=== PATIENT | female | born 1955 | race Caucasian/White ===

== ENCOUNTER 2021-04-28 14:59 | Emergency (ER) | payer MEDICARE, OTHER, SELFPAY ==
--- NOTE | 2021-04-28 | ECG_ITS ---
Test Reason : CHEST PAIN Blood Pressure : / mmHG Vent. Rate : 147 BPM Atrial Rate : 000 BPM P-R Int : 000 ms QRS Dur : 086 ms QT Int : 284 ms P-R-T Axes : 000 -42 073 degrees QTc Int : 444 ms Supraventricular tachycardia Left axis deviation Abnormal ECG When compared with ECG of 10-FEB-2019 17:57, Supraventricular tachycardia has replaced Normal sinus rhythm Referred By: Generic ED Physician Electronically Signed By:JESUS TURCIOS MD
[2021-04-28 15:05] VITALS: BMI 36.6
[2021-04-28 15:09] VITALS: BP 140/114; PULSE 146; RESP 20; TEMP 36.9; O2SAT 100
--- NOTE | 2021-04-28 15:35 | ED_ITS ---
HPI - Chest Pain General Chief Complaint: Chest Pain Stated Complaint: heart rate is high/ having trouble breathing Time Seen by Provider: 04/28/21 15:35 Source: patient Mode of arrival: ambulatory Limitations: no limitations History of Present Illness HPI narrative: Patient states after albuterol she developed palpitations and heart 180 according to her apical pulse. Patient has been stressed because her friend is likely to in the next 48 hours. Onset (ago): minute(s) Timing of current episode: constant Onset: during rest Pain location: other (palpitations and shortness of breath) Severity: severe Associated symptoms: dyspnea Related Data Previous Rx's Medication Instructions Recorded atenolol 25 mg tablet 25 mg PO DAILY #30 tab 04/28/21 Allergies Allergy/AdvReac Type Severity Reaction Status Date / Time ampicillin [AMPICILLIN] Allergy Intermediate HIVES Verified 04/28/21 15:05 codeine [CODEINE] Allergy Intermediate HIVES Verified 04/28/21 15:05 morphine [MORPHINE] Allergy Intermediate HIVES Verified 04/28/21 15:05 lisinopril [LISINOPRIL] Allergy Unknown COUGH Verified 04/28/21 15:05 Codeine Phosphate Allergy Unknown Itching Uncoded 04/28/21 15:05 From LOPRESSOR Allergy Unknown BRADYCARDIA Uncoded 04/28/21 15:05 Review of Systems Constitutional: Constitutional: Reports no additional constitutional complaints Eyes: Eyes: Reports no additional eye complaints ENT: Denies dizziness Cardiovascular: Cardiovascular: Reports no additional cardiovascular complaints Respiratory: Respiratory: Reports as per HPI Gastrointestinal: Gastrointestinal: Reports no additional gastrointestinal complaints Genitourinary: Genitourinary: Reports no additional female genitourinary complaints Musculoskeletal: Musculoskeletal: Reports no additional musculoskeletal complaints Integumentary/Breasts: Skin/Breast: Denies rash Neurologic: Reports system reviewed and no additional complaints, except as documented, Denies dizziness and Denies Sensory deficit (Neuro) Psychiatric: Psychiatric: Denies anxiety PMF Past Medical History Medical History Hypertension Social History Social History Alcohol intake: never Patient Tobacco Use Status: Former Tobacco user Use of substances other than those prescribed or required for medical reasons: No Advance Directives: No Advance Directives Information Provided: Yes Physical Exam Vital Signs: Vital Signs: Last Vital Signs Temp 98.5 F 04/28/21 16:00 Pulse 86 04/28/21 16:00 Resp 17 04/28/21 16:00 BP 162/112 H 04/28/21 16:00 Pulse Ox 98 04/28/21 16:00 BMI result Body Mass Index 36.6 Const: Other: anxious General: healthy appearing Nutritional Appearance: average body habitus Orientation/consciousness: oriented to person and patient oriented x3 Limitations: no limitations HENMT: Head: Yes normal to inspection Ears: external ears normal General nose exam: Normal external nose present Mouth: Normal oral and palatal mucosa present and oropharynx normal Throat: Yes posterior oropharynx normal Eyes: General: appearance normal, both eyes and all related structures Neck: Other: supple Neck: Yes normal visual inspection Chest: Chest palpation & inspection: normal inspection of the chest Resp: Auscultation: clear to auscultation bilaterally Cardio: Other: now in sinus rhythm Jugular venous distension: no JVD Rate: regular rate Rhythm: regular rhythm Heart sounds: S1 normal heart sound present and S2 normal heart sound present GI: Inspection: Yes normal to inspection Palpation (GI): Soft to palpation, nontender and No hepatosplenomegaly present Auscultation: normal bowel sounds : General: Yes no CVA tenderness Back/Spine/Pelvis: Back: no CVA tenderness Skin: General skin exam: no rashes or lesions noted Neuro: General: oriented to person and patient oriented x3 Cranial nerves: Yes CN's II-XII intact bilaterally Motor exam (neuro): 5/5 motor strength present throughout Sensory Exam: No Sensory deficit (Neuro) Extrem: General: Yes normal to inspection Psych: Appearance: grossly normal Course Reevaluation(s) Reevaluation #1: Placed patient on low dose betablocker for SVT, ddimer negative, troponin negative will dc home Time: 16:22 MDM - Chest Pain Lab Data Result diagrams: 04/28/21 15:45 04/28/21 15:45 Labs: Lab Results 04/28/21 04/28/21 04/28/21 Range/Units 15:45 15:45 15:45 WBC 7.1 (4.8-10.8) X10*3/uL RBC 4.95 (4.20-5.50) X10*6/uL Hgb 14.7 (12.0-16.0) g/dl Hct 43.4 (37.0-47.0) % MCV 87.7 (80.0-98.0) fL MCH 29.7 (27.0-33.0) pg MCHC 33.9 (31.0-35.0) g/dl RDW 12.1 (11.0-16.0) % Plt Count 199 (160-400) X10*3/uL MPV 9.6 (9.4-12.3) fL Immature Gran % (Auto) 0.3 (0.0-0.4) % Neut % (Auto) 60.4 (45-73) % Lymph % (Auto) 28.4 (20-40) % Bradley % (Auto) 5.9 (2-11) % Eos % (Auto) 3.9 (0-4) % Baso % (Auto) 1.1 (0-2) % Lymph # (Auto) 2.0 (1.2-4.9) X10*3/uL Bradley # (Auto) 0.4 (0.1-1.2) X10*3/uL Eos # (Auto) 0.3 (0.0-0.4) X10*3/uL Baso # (Auto) 0.1 (0.0-0.2) X10*3/uL Abs Immat Gran (auto) 0.02 (0.00-0.03) X10*3/uL Absolute Neuts (auto) 4.3 (2.0-8.3) x10*3/uL Absolute Nucleated RBC 0.000 (0.0-0.012) X10*3/uL Nucleated RBC % (auto) 0.0 (0.0-0.2) /100WBC D-Dimer High Sensitivty NG/ML Sodium 140 (135-145) mmol/L Potassium 4.1 (3.3-5.1) mmol/L Chloride 103 (96-108) mmol/L Carbon Dioxide 31 H (22-29) mmol/L Anion Gap 10 L (12-20) BUN 17 H (9-16) mg/dL Creatinine 0.82 (0.5-1.4) mg/dL Estim Creat Clear Calc 80.0 Estimated GFR > 60 Random Glucose 144 H (60-115) mg/dL Calcium 10.0 (8.4-10.2) mg/dL Troponin I High Sens < 3.5 (<3.5-17.0) ng/L 04/28/21 Range/Units 15:46 WBC (4.8-10.8) X10*3/uL RBC (4.20-5.50) X10*6/uL Hgb (12.0-16.0) g/dl Hct (37.0-47.0) % MCV (80.0-98.0) fL MCH (27.0-33.0) pg MCHC (31.0-35.0) g/dl RDW (11.0-16.0) % Plt Count (160-400) X10*3/uL MPV (9.4-12.3) fL Immature Gran % (Auto) (0.0-0.4) % Neut % (Auto) (45-73) % Lymph % (Auto) (20-40) % Bradley % (Auto) (2-11) % Eos % (Auto) (0-4) % Baso % (Auto) (0-2) % Lymph # (Auto) (1.2-4.9) X10*3/uL Bradley # (Auto) (0.1-1.2) X10*3/uL Eos # (Auto) (0.0-0.4) X10*3/uL Baso # (Auto) (0.0-0.2) X10*3/uL Abs Immat Gran (auto) (0.00-0.03) X10*3/uL Absolute Neuts (auto) (2.0-8.3) x10*3/uL Absolute Nucleated RBC (0.0-0.012) X10*3/uL Nucleated RBC % (auto) (0.0-0.2) /100WBC D-Dimer High Sensitivty 216 NG/ML Sodium (135-145) mmol/L Potassium (3.3-5.1) mmol/L Chloride (96-108) mmol/L Carbon Dioxide (22-29) mmol/L Anion Gap (12-20) BUN (9-16) mg/dL Creatinine (0.5-1.4) mg/dL Estim Creat Clear Calc Estimated GFR Random Glucose (60-115) mg/dL Calcium (8.4-10.2) mg/dL Troponin I High Sens (<3.5-17.0) ng/L ECG Data ECG #1: Attestation: I personally reviewed and interpreted this ECG as follows: Interpretation: SVT 145, no st or twave changes ECG #2: Interpretation: sinus rate 80, no st or twave changes Discharge Plan Discharge Clinical Impression: Paroxysmal supraventricular tachycardia Patient Disposition: Home, Self-Care Instructions: Supraventricular Tachycardia (ED) Prescriptions: New atenolol 25 mg tablet 25 mg PO DAILY Qty: 30 RF: 0 Referrals: Physician,Unknown J [Primary Care Provider] - 5 days
[2021-04-28 15:38] VITALS: BP 162/112; PULSE 93; RESP 17; TEMP 36.9; O2SAT 98
--- NOTE | 2021-04-28 15:40 | ECG_ITS ---
Test Reason : tachycardia Blood Pressure : / mmHG Vent. Rate : 079 BPM Atrial Rate : 079 BPM P-R Int : 160 ms QRS Dur : 092 ms QT Int : 358 ms P-R-T Axes : 026 -40 038 degrees QTc Int : 410 ms Normal sinus rhythm Left axis deviation Abnormal ECG When compared with ECG of 28-APR-2021 15:05, Normal sinus rhythm has replaced Supraventricular tachycardia Referred By: Juve Bender Electronically Signed By:JESUS TURCIOS MD
[2021-04-28 15:50] LABS: MANUAL DIFF FLAG NO
[2021-04-28 15:52] LABS: Basophils Absolute Auto 0.1 X10*3/uL (0.0-0.2); Basophils Percent Auto 1.1 % (0-2); Eosinophils Absolute Auto 0.3 X10*3/uL (0.0-0.4); Eosinophils Percent Auto 3.9 % (0-4); Hematocrit 43.4 % (37.0-47.0); Hemoglobin 14.7 g/dl (12.0-16.0); Imm Gran Abs Auto 0.02 X10*3/uL (0.00-0.03); Imm Gran Pct Auto 0.3 % (0.0-0.4); Lymphocytes Percent Auto 28.4 % (20-40); Mean Corpuscular HGB Conc 33.9 g/dl (31.0-35.0); Mean Corpuscular Hemoglobin 29.7 pg (27.0-33.0); Mean Corpuscular Volume 87.7 fL (80.0-98.0); Mean Platelet Volume 9.6 fL (9.4-12.3); Monocytes Absolute Auto 0.4 X10*3/uL (0.1-1.2); Monocytes Percent Auto 5.9 % (2-11); Neutrophils Absolute Auto 4.3 x10*3/uL (2.0-8.3); Neutrophils Percent Auto 60.4 % (45-73); Platelet Count 199 X10*3/uL (160-400); Red Blood Count 4.95 X10*6/uL (4.20-5.50); Red Cell Distribution Width 12.1 % (11.0-16.0); White Blood Count 7.1 X10*3/uL (4.8-10.8)
[2021-04-28 16:00] VITALS: BP 162/112; PULSE 86; RESP 17; TEMP 36.9; O2SAT 98
[2021-04-28 16:01] LABS: D Dimer High Sensitivity 216 NG/ML
[2021-04-28 16:06] LABS: Anion Gap 10 (12-20); Blood Urea Nitrogen 17 mg/dL (9-16); Carbon Dioxide 31 mmol/L (22-29); Chloride 103 mmol/L (96-108); Estimated Glomerular Filt Rate > 60; Glucose Random 144 mg/dL (60-115); Potassium 4.1 mmol/L (3.3-5.1); Sodium 140 mmol/L (135-145)
--- NOTE | 2021-04-28 16:08 | PC.NURSE ---
patient a&ox3, c/o mid back pain, telemetry monitor intact-nsr at this time, pt noted to be hypertensive, iv inserted, labs drawn, repeat ekg being performed, will continue to monitor
[2021-04-28 16:13] LABS: Troponin-I High Sensitivity < 3.5 ng/L (<3.5-17.0)
--- NOTE | 2021-04-28 16:24 | PC.NURSE ---
pt not wanting to take PO medication that is ordered, provider notified, provider to speak with patient
[2021-04-28] MEDS: atenoloL 25 MG TABLET PO (16:48)
[2021-04-28 19:51] LABS: TSH reflex Free T4 1.85 uIU/mL (0.32-4.0)
== END 2021-04-28 16:54 | disposition home or self-care (01) ==
LOC: HO.ED 16:24
PROVIDERS: Emergency Provider Emergency Medicine; PCP Internal Medicine
DX: I47.1 Supraventricular tachycardia (principal); R00.2 Palpitations; I10 Essential (primary) hypertension
CPT/HCPCS: 36415; 80048; 84443; 84484; 85025; 85379; 93005; 99283; 99285

== ENCOUNTER 2022-01-07 09:49 | Outpatient (REF) | payer MEDICARE, OTHER, SELFPAY ==
--- NOTE | ~2022-01-07 | US_ITS ---
EXAMINATION: US ABDOMEN COMPLETE CLINICAL INFORMATION: History of hepatitis C. COMPARISON: None TECHNIQUE: Real-time imaging of the abdominal viscera. Technically difficult study secondary to bowel gas. FINDINGS: PANCREAS: Normal. ABDOMINAL AORTA: Atherosclerotic plaque. Normal in caliber. INFERIOR VENA CAVA: Visualized portions are normal. LIVER: The liver is normal in size. The liver contour is normal. Liver echotexture may be increased. There is a 1.3 x 1 x 1.6 cm echogenic lesion high in the right lobe of the liver under the diaphragm. No other focal liver lesion. There is no intrahepatic biliary duct dilatation seen. GALLBLADDER: Normal. The gallbladder is physiologically distended without evidence of stones, sludge, polyps, wall thickening or pericholecystic fluid. COMMON BILE DUCT: Normal in caliber measuring 0.4 cm in diameter. RIGHT KIDNEY: Normal. No hydronephrosis. No renal calculi or focal parenchymal lesions. The kidney measures 10.4 cm in maximum dimension. LEFT KIDNEY: Normal. No hydronephrosis. No renal calculi or focal parenchymal lesions. The kidney measures 9.8 cm in maximum dimension. SPLEEN: Normal. The spleen measures 7.9 cm in maximum dimension. FREE FLUID: None. US/US abdomen complete IMPRESSION: 1.3 x 1 x 1.6 cm echogenic lesion high in the right lobe the liver under the diaphragm. Given history of hepatitis C, further characterization with liver MRI is recommended. No evidence of cirrhosis.
[2022-01-07 10:45] LABS: Prothrombin Time 11.7 SEC (10.0-13.1)
[2022-01-07 11:10] LABS: Alanine Aminotransferase 17 U/L (0-31); Albumin Level 4.6 g/dL (3.5-5.0); Alkaline Phosphatase 60 U/L (39-117); Aspartate Amino Transferase 26 U/L (5-31); Bilirubin Direct 0.2 mg/dL (0.0-0.5); Bilirubin Total 0.6 mg/dL (0.0-1.0); Total Protein 7.7 g/dL (6.5-8.0)
[2022-01-09 13:41] LABS: Alpha Fetoprotein 2.5 ng/mL
[2022-01-09 19:32] LABS: HCV Log PCR <1.18 NOT DETECTED Log IU/mL (NOT DETECTED); HepC Viral Load <15 NOT DETECTED IU/mL (NOT DETECTED)
[2022-01-14 01:22] LABS: FIB-ALT 21 U/L (6-29); FIB-Alpha-2-Macroglobulin 420 mg/dL (106-279); FIB-Apolipoprotein A1 154 mg/dL (101-198); FIB-GGT 11 U/L (3-65); FIB-Haptoglobin 98 mg/dL (43-212); FIB-Total Bilirubin 0.6 mg/dL (0.2-1.2); Liver Fibrosis Score 0.52; Liver Fibrosis Stage F2; Nec Inflam Act Grade A0; Nec Inflam Act Score 0.12
== END 2022-01-07 09:50 | disposition home or self-care (01) ==
LOC: HO.US 09:49
PROVIDERS: Absent Provider Internal Medicine; PCP Internal Medicine; Visit Provider Internal Medicine
DX: B19.20 Unspecified viral hepatitis C without hepatic coma (principal)
CPT/HCPCS: 36415; 76700; 80076; 81596; 82105; 85610; 87522

== ENCOUNTER 2022-01-27 12:46 | Outpatient (REF) | payer MEDICARE, OTHER, SELFPAY ==
--- NOTE | ~2022-01-27 | MR_ITS ---
EXAMINATION: MR ABDOMEN WITHOUT AND WITH CONTRAST CLINICAL INFORMATION: History of hepatitis C. Abnormal liver ultrasound. COMPARISON: Ultrasound 01/07/2022 TECHNIQUE: MR abdomen was performed without and with use of 10 mL intravenous Gadavist gadolinium contrast. Postcontrast images are performed in multiphase dynamic sequences. Imaging was performed in 3 planes. FINDINGS: LUNG BASES: The visualized lung bases are unremarkable. LIVER, GALLBLADDER, AND BILIARY TREE: Likely corresponding to the hyperechoic colonic lesions seen in the right lobe of liver subjacent to the dome, posteriorly in segment 7, subjacent the diaphragm there is a well-circumscribed 1.3 cm homogeneously hyperintense T2 lesion which is initially hypointense on T1-weighted images. On the second phase of contrast-enhancement there is a thin rim of enhancement. The subsequent later phase of contrast enhancement is degraded by motion artifact. There is a thin rim of peripheral enhancement in the lesion is barely discernible on the latest coronal postcontrast series 11 image 07/30. No arterially enhancing lesions are seen. There is dependent bile or sludge within the gallbladder. No gallbladder wall thickening or pericholecystic fluid. No biliary ductal dilatation.. PANCREAS: Unremarkable. SPLEEN: Normal. ADRENAL GLANDS: Normal. KIDNEYS AND URETERS: The kidneys are normal in size, shape, and enhance symmetrically. No hydronephrosis. No perinephric stranding. GASTROINTESTINAL TRACT: No bowel obstruction. No ascites or fluid collection. ABDOMINAL WALL: No significant hernia is appreciated. LYMPH NODES: No lymphadenopathy. VASCULAR: Unremarkable. OSSEOUS STRUCTURES: No acute or suspicious osseous abnormality MR/MR abdomen wo/w con IMPRESSION: 1.3 cm lesion seen posteriorly in the right lobe of the liver adjacent the dome likely corresponds to the finding on ultrasound. The lesion has an atypical appearance. The lesion has a nonaggressive appearance with homogeneous bright T2 signal that would be typical for a cyst or a hemangioma. The lesion has a thin peripheral rim of enhancement after contrast administration, which would be unusual for a simple cyst. Moreover, the echogenic appearance on the ultrasound is the opposite of what would be expected for a simple cyst. The lesion does not demonstrate the expected progressive internal enhancement of a hemangioma although the T2 signal and ultrasound appearance are most suggestive of a hemangioma. Recommend continued attention on follow-up to confirm stability particularly if the patient is at increased risk for hepatocellular carcinoma.
[2022-01-27 14:31] LABS: Blood Urea Nitrogen 16 mg/dL (9-16); Estimated Glomerular Filt Rate > 60
== END 2022-01-27 12:47 | disposition home or self-care (01) ==
LOC: HO.MRI 12:46
PROVIDERS: Visit Provider Internal Medicine
DX: Z01.812 Encounter for preprocedural laboratory examination (principal); R93.2 Abnormal findings on diagnostic imaging of liver and biliary tract; Z86.19 Personal history of other infectious and parasitic diseases
CPT/HCPCS: 36415; 74183; 82565; 84520; A9585

== ENCOUNTER 2022-04-14 08:40 | Emergency (ER) | payer MEDICARE, OTHER, SELFPAY ==
--- NOTE | ~2022-04-14 | XR_ITS ---
EXAMINATION: XR CHEST CLINICAL INFORMATION: Chest pain. COMPARISON: Most recent chest radiograph dated 11/19/2017. TECHNIQUE: Frontal view of the chest was obtained. FINDINGS: The lungs are clear. The cardiomediastinal silhouette is normal in size. There is no pleural effusion or pneumothorax. No acute osseous abnormality. XR/XR chest 1V IMPRESSION: No acute cardiopulmonary findings.
--- NOTE | 2022-04-14 08:43 | ECG_ITS ---
Test Reason : CP Blood Pressure : / mmHG Vent. Rate : 077 BPM Atrial Rate : 077 BPM P-R Int : 152 ms QRS Dur : 088 ms QT Int : 368 ms P-R-T Axes : 016 -39 032 degrees QTc Int : 416 ms Normal sinus rhythm Left axis deviation Abnormal ECG When compared with ECG of 28-APR-2021 16:07, No significant change was found Referred By: Generic ED Physician Electronically Signed By:Johnnie Mccloud
[2022-04-14 08:54] VITALS: BP 137/87; PULSE 79; RESP 19; TEMP 36.6; O2SAT 100; BMI 38.2
--- OUTSIDE RECORDS SUMMARY | 2022-04-14 09:08 | XMS_ITS | Continuity of Care Document ---
:1955 Author Organization [facility] Address [address] [place] [address]- Care Team Providers Name Role Phone Kartik Valdez MD Primary Care Physician Encounter [facility] [place]): 01/12/20 - 03/31/[address] [id number] Attending Physician: Machelle Bardales MD Admitting Physician: Machelle Bardales MD Referring Physician: Machelle Bardales MD Allergies, Adverse Reactions, Alerts Substance Reaction Severity Status ampicillin rash Active codeine itch Active erythromycin GI UPSET Active morphine hallucinations, has no effect on Persistent Jesusita re Active pain Lopressor HEART RATE DROPS TO 20 Active Other Environmental Allergy SEASONAL ALLERGY Act meng Medications albuterol 90 mcg/inh inhalation powder 2 puffs, Inhalation, Every 4 hours, PRN Wheezing/Shortness of Breath, 0 Refills, Maintenance, 09/24/15 9:46:36 Start Date: 09/24/15 Status: OrderedAmitiza 24 mcg oral capsule 1 capsule = 24 mcg, By Mouth, 2 times a day, # 60 capsule, 3 Refills, Maintenance, 11/03/19 13:59:00EDT, Capsule, [id number] Start Date: 11/03/19 Status: OrderedAtivan 0.5 mg oral tablet 1 tablet = 0.5 mg, By Mouth, 3 times a day, PRN as needed for anxiety, 0 Refills, Maintenance, 09/24/15 9:45:57 Start Date: 09/24/15 Status: OrderedCholecalciferol 400, International_Units, By Mouth, Daily, 30, 3, 3, 04/27/08 9:26:27, Print ANNA Number, ADS OPPTHS,[id number], Constant Indicator Start Date: 04/27/08 Status: OrderedColace Capsule 100, mg, By Mouth, 2 times a day, Scheduled / PRN, 60, capsule, 5, 5, 11/16/07 10:30:15, as needed for constipation, Print ANNA Number, ADS OPPTHS, [id number] Start Date: 11/16/07 Status: OrderedColace sodium 100 mg oral capsule 100 mg, 1, capsule, By Mouth, 2 times a day, # 60 capsule, Refills 0, Tot. Refills 0, Maintenance, 10/01/15 13:33:22, Print Requisition Start Date: 10/01/15 Status: OrderedLasix 40 mg oral tablet 40 mg, 1, tablet, By Mouth, Daily in AM, Refills 0, Maintenance, 09/24/15 9:44:58 Start Date: 09/24/15 Status: OrderedMilk of Magnesia Liquid 30 CC, By Mouth, Daily at bedtime, PRN as needed for constipation, 0 Refills, Maintenance, 09/24/15 9:49:58 Start Date: 09/24/15 Status: OrderedMultivitamin 1 TAB, By Mouth, Daily, 0 Refills, Maintenance, 09/24/15 9:48:05 Start Date: 09/24/15 Status: Orderedomeprazole 20 mg oral enteric coated tablet 20, mg, 1, tablet, By Mouth, Daily, 60 tablet, 5, 5, 11/16/07 10:30:15, Print ANNA Number, ADS OPPTHS, [id number], Constant Indicator Start Date: 11/16/07 Status: OrderedPatient's Own Meds BONINE CHEW 1 TAB, By Mouth, 2 times a day, PRN, Maintenance, 09/24/15 9:50:31 Start Date: 09/24/15 Status: OrderedSimethicone Liquid See Instructions, 30 mL, 0, 0, 11/16/07 10:30:27, 80 mg By Mouth TID prn gas pain, Print ANNA Number,ADS OPPTHS, Constant Indicator Start Date: 11/16/07 Status: OrderedSpiriva HandiHaler 18 mcg Inhalation Capsule 1 each = 18 mcg, Inhalation, Daily, 0 Refills, Maintenance, 09/24/15 9:49:19 Start Date: 09/24/15 Status: OrderedVitamin B Complex oral tablet, extended release 1 tablet, By Mouth, Daily, 0 Refills, Maintenance, 09/24/15 9:47:43 Start Date: 09/24/15 Status: OrderedVitamin C 500 mg oral tablet 1 tablet = 500 mg, By Mouth, 2 times a day, 0 Refills, Maintenance, 09/24/15 9:47:01 Start Date: 09/24/15 Status: OrderedZoloft 50 mg oral tablet 1 tablet = 50 mg, By Mouth, Daily in AM, 0 Refills, Maintenance, 09/24/15 9:45:28 Start Date: 09/24/15 Status: Ordered Problem List Condition Effective Dates Status Health Status Informant Anxiety(Confirmed) Active Hypercholesterolemia(Confirmed) Active Prediabetes(Confirmed) Active Obesity (BMI 30-39.9)(Confirmed) Active Hepatitis C(Confirmed) Active Social History Social History Type Response Smoking Status Former smoker; Other: quit 2 1yrs ago; entered on: 07/19/15 Sex
--- OUTSIDE RECORDS SUMMARY | 2022-04-14 09:08 | XMS_ITS | Continuity of Care Document ---
:1955 Author Organization [facility] Address [address] [place] [address] Drive [address] [place] [address]- Care Team Providers Name Role Phone Kartik Valdez MD Primary Care Physician Encounter [facility] [place] Date(s): 11/03/19 - 12/03/[address] [place] [address] [facility] Attending Physician: Admtr, Surinder Admitting Physician: Admtr, Ar8 Referring Physician: Admtr, Ar8 Allergies, Adverse Reactions, Alerts Substance Reaction Severity [...] 3, 04/27/08 9:26:27, Print ANNA Number, ADS OPPTHS,[id number], Constant Indicator Start Date: 04/27/08 Status: OrderedColace Capsule 100, mg, By Mouth, 2 times a day, Scheduled / PRN, 60, capsule, 5, 5, 11/16/07 10:30:15, as needed for constipation, Print ANNA Number, ADS OPPTHS, [id number] Start Date: 11/16/07 Status: OrderedColace sodium 100 [...] 11/16/07 10:30:15, Print ANNA Number, ADS OPPTHS, [id number], Constant Indicator Start Date: 11/16/07 Status: OrderedPatient's [...]
--- OUTSIDE RECORDS SUMMARY | 2022-04-14 09:08 | XMS_ITS | Continuity of Care Document ---
:1955 Author Organization [facility] Address Unavailable , Care Team Providers Name Role Phone Kartik Valdez MD Primary Care Physician [place] [facility] [place] 11[place]30/20 [facility] Allergies, Adverse Reactions, Alerts Substance Reaction Severity [...] 3, 04/27/08 9:26:27, Print ANNA Number, ADS OPPTHS,[id number], Constant Indicator Start Date: 04/27/08 Status: OrderedColace Capsule 100, mg, By Mouth, 2 times a day, Scheduled / PRN, 60, capsule, 5, 5, 11/16/07 10:30:15, as needed for constipation, Print ANNA Number, ADS OPPTHS, [id number] Start Date: 11/16/07 Status: OrderedColace sodium 100 [...] 11/16/07 10:30:15, Print ANNA Number, ADS OPPTHS, [id number], Constant Indicator Start Date: 11/16/07 Status: OrderedPatient's [...]
--- OUTSIDE RECORDS SUMMARY | 2022-04-14 09:08 | XMS_ITS ---
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, limited to breakdown skin Problem Neuropathy G62.9 Active [id number] Problem Hallux valgus M20.11 Active 249210 01 (acquired), right foot Problem Non-pressure L97.922 Active ulcer of left lower extremity with fat layer exposed ALLERGIES Substance Reaction Event Type Date Status Amoxicillin rash Drug Allergy Nov, Active Codeine itchy Drug Allergy Nov, Active Penicillin rash Drug Allergy Nov, Active Metoprolol Succinate Unknown Drug Allergy Nov, Active Morphine shortness of breath Drug Allergy Nov, Active Percocet Unknown Drug Allergy Nov, Active ENCOUNTERS Encounter Location Date Diagnosis [facility] [address] Nov, Non -pressure chronic [place] ulcer right low [place] leg, [address] limited to break down skin L97.911 [facility] [address] Oct, Ing rown nail L60.0 ; [place] Neuropathy G62. 9 ; [address] Disorder of the skin and subcutaneous tis vane, unspecified L98. 9 and Dystrophic nail L60.[address] [facility] August, [place] [address] [facility] [place], [place] [address] [place], [place] [address] August, Zayra ropathy G62.9 ; [place] Ingrown nail L6 0.0 ; [place] [address] in right toe(s) M79.674 ; Disorder of the skin and subcutaneous tis vane, unspecified L98. 9 and Dystrophic nail L60.[address] Jun, [place] [address] Jun, Ing rowing nail L60.0 ; [place] Tinea unguium B 35.1 ; [address] Pain in right to e(s) M79.674 and Pain in left toe(s) M79.[address] Jan, Non -pressure chronic [place] ulcer right low er leg, [address] limited to break down skin L97.911 and Non- pressure ulcer of left lo wer extremity with f at layer exposed L97.[address] Dec, Non -pressure chronic [place] ulcer of [place] [address] right foot with fat layer exposed L97.512 and Ingrowing nail L 60.[address] Dec, [place] [address] Dec, Ing rowing nail L60.0 ; [place] 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 and Localized swelli ng, mass and lump, lower limb, bilateral R22.[address] Mar, Con tusion of right great [place] [address] nail, initial en counter S90.111A ; Close d displaced fractu re of proximal phalanx of right great toe, initi al encounter S92.41 1A ; Hallux valgus (a cquired), right foot M20.1 1 and Pes planus of right foot M21.41 IMMUNIZATIONS No Known Immunizations SOCIAL HISTORY Qualifiers Date Former Smoker 1973 - 1991 REASON FOR REFERRAL FUNCTIONAL STATUS PLAN OF CARE Activity Details Follow Up prn Reason: VITAL SIGNS Height 5 ft 6 in in 2021-11-05 Weight 225 lbs 2021-11-05 BMI 36.31 kg/m2 2021-11-05 Blood pressure systolic 131 mm Hg 2019-06-23 Blood pressure diastolic 82 mm Hg 2019-06-23 MEDICATIONS Medication Instructions Dosage Frequency Start End Duration Statu s Date Date traZODone HCl Active Incruse Inhalation Once 1 puff 24h Active Ellipta 62.5 a day MCG/INH Lasix 40 MG Orally three 1 tablet Active times a week Cephalexin 500 Orally 2 1 capsule 29 August, 5 days Active MG tablets prior 2021 to procedure Clindamycin Orally 2 tables 1 capsule 29 August, 5 days Ac tive HCl 300 MG prior to 2021 procedure Meclizine HCl Orally Once a 1 tablet as 24h Active 25 MG day needed Mupirocin 2 % Externally 1 application 12h 29 August, 5 day(s) Active Twice a day 2021 Mupirocin 2 % Externally 1 application 24h 11 Sep, 14 days N ot-Taki Daily to affected 2018 ng area Ativan 0.5 MG Orally every 6 1 tablet as 6h Not-Taki hrs needed ng Clindamycin Orally every 6 1 capsule 6h 06 Sep, 7 days Not -Taki HCl 300 MG hrs 2019 ng Sertraline HCl Orally Once a 3 tablet 24h Ac tive 25 MG day Crestor 20 MG Orally Once a 24h Not- Taki day ng Spiriva Inhalation Once 1 capsule 24h Not-Ta ki HandiHaler 18 a day ng MCG Neurontin 300 Orally Once a 1 capsule 24h 29 August, 90 days Ac tive MG day 2021 PROCEDURES Procedure Date Ordered Result Body Site Avulsion Plate June 23, 2019 DEBRIDE SKIN/TISSUE Jan 04, 2019 STERILE TRAY Dec 09, 2018 ACTIVE WOUND CARE/20 CM OR < Jan 04, 2019 DEBRIDE SKIN/TISSUE Dec 23, 2018 REMOVAL OF NAIL BED October 22, 2021 X-RAY EXAM OF RIGHT FOOT 3V Mar 19, 2017 REMOVAL OF NAIL BED Dec 23, 2018 STERILE TRAY October 22, 2021 REMOVAL OF NAIL BED Dec 09, 2018 STERILE TRAY Sept 20, 2019 RESULTS Name Result Date Reference Range X ray : Foot, right 3V REASON FOR VISIT Insurance Providers [facility] Health Member Patient Patient Patient Patient Patient Subscriber Subscriber Subscriber Group Insurance Plan Plan Plan Plan ID Relationship Address Phone Name Date of ID Name Date of No Type Insurance Insurance Insurance Coverage to Subscriber Address Phone Name Dates Unicare [phone] Unicare self [employer] [id number] [facility] [place] [address] Medicare National [id number] Medicare self [employer] [id number] Govt S[address] [facility] [address] [place] [address] Unicare [phone] Unicare self [employer] [id number] [place] [address] MEDICAL (GENERAL) HISTORY Type Description Date Medical History Anxiety Medical History Arthritis Medical History asthma Medical History CAD (Cholesterol) Medical History Hepatitis C Medical History High blood pressure Medical History chronic sinusitis Medical History Measles Medical History Mumps Medical History Chicken pox Medical History Transfusions Medical History Degenerative joint disease Surgical History knee replacement - TAQUERIA 2009 Surgical History carpal tunnel both hands
--- OUTSIDE RECORDS SUMMARY | 2022-04-14 09:08 | XMS_ITS | Continuity of Care Document ---
:1955 Author Organization [facility] Address [address] [place] [address] [place] [address]- Care Team Providers Name Role Phone Kartik Valdez MD Primary Care Physician [place] [facility] [place] - 11/10/[address] [place] [address] Attending Physician: Rosita MANCERA, Jodi Munoz Referring Physician: Kartik Valdez MD Allergies, Adverse Reactions, Alerts Substance Reaction [...] 3, 04/27/08 9:26:27, Print ANNA Number, ADS OPPTHS,[id number], Constant Indicator Start Date: 1/23/09 Status: OrderedColace Capsule 100, mg, By Mouth, 2 times a day, Scheduled / PRN, 60, capsule, 5, 5, 11/16/07 10:30:15, as needed for constipation, Print ANNA Number, ADS OPPTHS, [id number] Start Date: 11/16/07 Status: OrderedColace sodium 100 [...] 11/16/07 10:30:15, Print ANNA Number, ADS OPPTHS, [id number], Constant Indicator Start Date: 11/16/07 Status: OrderedPatient's [...]
--- OUTSIDE RECORDS SUMMARY | 2022-04-14 09:08 | XMS_ITS | Continuity of Care Document ---
:1955 Author Organization [facility] Address Unavailable , Care Team Providers Name Role Phone Kartik Valdez MD Primary Care Physician Encounter [facility] [place] Date(s): 10/30/20 - 11/29/20 [facility] Allergies, Adverse Reactions, Alerts [...] 3, 04/27/08 9:26:27, Print ANNA Number, ADS OPPTHS,[id number], Constant Indicator Start Date: 04/27/08 Status: OrderedColace Capsule 100, mg, By Mouth, 2 times a day, Scheduled / PRN, 60, capsule, 5, 5, 11/16/07 10:30:15, as needed for constipation, Print ANNA Number, ADS OPPTHS, [id number] Start Date: 11/16/07 Status: OrderedColace sodium 100 [...] 11/16/07 10:30:15, Print ANNA Number, ADS OPPTHS, [id number], Constant Indicator Start Date: 11/16/07 Status: OrderedPatient's [...]
[2022-04-14 09:11] VITALS: BP 147/81; PULSE 77; RESP 23; O2SAT 100
[2022-04-14 09:57] LABS: MANUAL DIFF FLAG NO
[2022-04-14 09:58] LABS: Hemoglobin 14.3 g/dl (12.0-16.0); Imm Gran Abs Auto 0.01 X10*3/uL (0.00-0.03); Imm Gran Pct Auto 0.2 % (0.0-0.4); PLT CLUMP 1; SCAN SMEAR FLAG 1
--- NOTE | 2022-04-14 09:59 | ED_ITS ---
HPI - Chest Pain General Chief Complaint: Chest Pain Stated Complaint: Back pain/Chest pain Time Seen by Provider: 04/14/22 08:57 Source: patient Mode of arrival: ambulatory History of Present Illness HPI narrative: 66-year-old female with stage 2 liver disease secondary to hep C and diabetes who presents with mid back pain open quotes between the shoulder blades? that is been ongoing for 2-3 days which has now progressed to radiating into the substernal without associated fever, chills, shortness of breath or dizziness and patient denies any new cough or sore throat. Related Data Previous Rx's Medication Instructions Recorded atenolol 25 mg tablet 25 mg PO DAILY #30 tabs 04/28/21 cyclobenzaprine 5 mg tablet 5 mg PO BEDTIME PRN muscle spasm 04/14/22 #4 tabs ketorolac 10 mg tablet 10 mg PO Q6H PRN pain 5 days #20 04/14/22 tabs Allergies Allergy/AdvReac Type Severity Reaction Status Date / Time ampicillin [AMPICILLIN] Allergy Intermediate HIVES Verified 04/28/21 15:05 codeine [CODEINE] Allergy Intermediate HIVES Verified 04/28/21 15:05 morphine [MORPHINE] Allergy Intermediate HIVES Verified 04/28/21 15:05 lisinopril [LISINOPRIL] Allergy Unknown COUGH Verified 04/28/21 15:05 Codeine Phosphate Allergy Unknown Itching Uncoded 04/28/21 15:05 From LOPRESSOR Allergy Unknown BRADYCARDIA Uncoded 04/28/21 15:05 Review of Systems Review of Systems: Pertinent positives and negatives as stated in HPI. [facility] Past Medical History Source: nursing notes reviewed Medical History Hypertension Social History Social History Alcohol intake: never Patient Tobacco Use Status: Former Tobacco user Advance Directives: Yes Advance Directives Information Provided: No Advance Directives on File: No Physical Exam Vital Signs: Vital Signs: Last Vital Signs Temp 98 F 04/14/22 08:54 Pulse 59 04/14/22 11:52 Resp 12 04/14/22 11:52 BP 125/75 04/14/22 11:52 Pulse Ox 99 04/14/22 11:52 O2 Del Method 04/14/22 11:52 BMI result Body Mass Index 38.2 VITAL SIGNS: Reviewed. GENERAL: Well developed, well nourished, in no acute distress. HEAD: Normocephalic/atraumatic EYES: PERRLA, EOMI EARS: Ext canals without abnormality OROPHARYNX: no oral lesions noted, posterior pharynx clear LUNGS: Normal breath sounds. No adventitious sounds or accessory muscle use. SpO2<100> CARDIOVASCULAR: Regular rate and rhythm without noted murmurs, no JVD or lower extremity edema. ABDOMEN: Soft, non-tender, non-distended with bowel sounds. MUSCULOSKELETAL: No tenderness, deformities, or effusions noted on gross inspection. EXTREMITIES: No cyanosis, clubbing or edema. SKIN: Inspection of the skin reveals no rashes NEUROLOGIC: Alert and oriented x 4. Strength and sensation to light touch were grossly intact x 4. Medications Administered Discontinued Medications Generic Name Dose Route Start Last Admin Trade Name Freq PRN Reason Stop Dose Admin Acetaminophen 975 mg 04/14/22 11:05 04/14/22 11:21 Acetaminophen 325 Mg Tablet PO 04/14/22 11:06 Not Given ONCE ONE Ketorolac Tromethamine 15 mg 04/14/22 11:05 04/14/22 11:20 Ketorolac Tromethamine 15 Mg/Ml Vial IM 04/14/22 11:06 15 mg ONCE ONE Administration Lidocaine 1 patch 04/14/22 11:05 04/14/22 11:21 Lidocaine 4 % Patch Adh..Patch TRANSDERMA 04/14/22 11:06 1 patch ONCE ONE Administration Protocol Medical Decision Making Medical Decision Making [facility] Narrative: 66-year-old female with back pain and suspect that this is likely musculoskeletal in nature but will rule out cardiopulmonary etiology and lower clinical suspicion for compression fracture 1201: On my review and interpretation patient has musculoskeletal pains/muscle spasm of the mid back is there is no evidence of pneumonia, cardiac ischemia, PE, viral infection. Patient was given combination analgesics to include a lidocaine patch and on re-evaluation is feeling better. She is otherwise discharged home in stable condition. Differential Diagnosis Differential Diagnoses: The differential diagnosis associated with the presentation includes See the discussion above Lab Data [facility] Lab Attestation statement: I reviewed the patient's lab results. See discussion above 04/14/22 09:52 04/14/22 09:52 Labs: Lab Results 04/14/22 04/14/2223 Range/Units 09:52 09:52 09:52 WBC 5.5 (4.8-10.8) X10*3/uL RBC 4.94 (4.20-5.50) X10*6/uL Hgb 14.3 (12.0-16.0) g/dl Hct 42.3 (37.0-47.0) % MCV 85.6 (80.0-98.0) fL MCH 28.9 (27.0-33.0) pg MCHC 33.8 (31.0-35.0) g/dl RDW 12.3 (11.0-16.0) % Plt Count 181 (160-400) X10*3/uL MPV 10.3 (9.4-12.3) fL Immature Gran % (Auto) 0.2 (0.0-0.4) % Neut % (Auto) 51.4 (45-73) % Lymph % (Auto) 34.9 (20-40) % Cass % (Auto) 8.2 (2-11) % Eos % (Auto) 4.0 (0-4) % Baso % (Auto) 1.3 (0-2) % Lymph # (Auto) 1.9 (1.2-4.9) X10*3/uL Cass # (Auto) 0.5 (0.1-1.2) X10*3/uL Eos # (Auto) 0.2 (0.0-0.4) X10*3/uL Baso # (Auto) 0.1 (0.0-0.2) X10*3/uL Abs Immat Gran (auto) 0.01 (0.00-0.03) X10*3/uL Absolute Neuts (auto) 2.8 (2.0-8.3) x10*3/uL Absolute Nucleated RBC 0.000 (0.0-0.012) X10*3/uL Nucleated RBC % (auto) 0.0 (0.0-0.2) /100WBC D-Dimer High Sensitivty 192 NG/ML Sodium 139 (135-145) mmol/L Potassium 4.3 (3.3-5.1) mmol/L Chloride 104 (96-108) mmol/L Carbon Dioxide 25 (22-29) mmol/L Anion Gap 14 (12-20) BUN 19 H (9-16) mg/dL Creatinine 0.75 (0.5-1.4) mg/dL Estim Creat Clear Calc 86.4 Estimated GFR > 60 Random Glucose 141 H (60-115) mg/dL Calcium 9.4 (8.4-10.2) mg/dL Total Bilirubin 0.5 (0.0-1.0) mg/dL AST 24 (5-31) U/L ALT 23 (0-31) U/L Alkaline Phosphatase 62 (39-117) U/L Troponin I High Sens (<3.5-17.0) ng/L Total Protein 7.2 (6.5-8.0) g/dL Albumin 4.4 (3.5-5.0) g/dL Lipase 13 (8-78) U/L COVID-19 ([facility]) (Negative) COVID-19 Clin Com Influenza Type A ([facility]) (Negative) Influenza Type B (MIKE) (Negative) Influenza A & B Note 04/14/22 04/14/22 04/14/22 Range/Units 09:52 11:16 11:16 WBC (4.8-10.8) X10*3/uL RBC (4.20-5.50) X10*6/uL Hgb (12.0-16.0) g/dl Hct (37.0-47.0) % MCV (80.0-98.0) fL MCH (27.0-33.0) pg MCHC (31.0-35.0) g/dl RDW (11.0-16.0) % Plt Count (160-400) X10*3/uL MPV (9.4-12.3) fL Immature Gran % (Auto) (0.0-0.4) % Neut % (Auto) (45-73) % Lymph % (Auto) (20-40) % Cass % (Auto) (2-11) % Eos % (Auto) (0-4) % Baso % (Auto) (0-2) % Lymph # (Auto) (1.2-4.9) X10*3/uL Cass # (Auto) (0.1-1.2) X10*3/uL Eos # (Auto) (0.0-0.4) X10*3/uL Baso # (Auto) (0.0-0.2) X10*3/uL Abs Immat Gran (auto) (0.00-0.03) X10*3/uL Absolute Neuts (auto) (2.0-8.3) x10*3/uL Absolute Nucleated RBC (0.0-0.012) X10*3/uL Nucleated RBC % (auto) (0.0-0.2) /100WBC D-Dimer High Sensitivty NG/ML Sodium (135-145) mmol/L Potassium (3.3-5.1) mmol/L Chloride (96-108) mmol/L Carbon Dioxide (22-29) mmol/L Anion Gap (12-20) BUN (9-16) mg/dL Creatinine (0.5-1.4) mg/dL Estim Creat Clear Calc Estimated GFR Random Glucose (60-115) mg/dL Calcium (8.4-10.2) mg/dL Total Bilirubin (0.0-1.0) mg/dL AST (5-31) U/L ALT (0-31) U/L Alkaline Phosphatase (39-117) U/L Troponin I High Sens < 3.5 (<3.5-17.0) ng/L Total Protein (6.5-8.0) g/dL Albumin (3.5-5.0) g/dL Lipase (8-78) U/L COVID-19 ([facility]) Negative (Negative) COVID-19 Clin Com See Note Influenza Type A ([facility]KE) Negative (Negative) Influenza Type B ([facility]) Negative (Negative) Influenza A & B Note See Note Independent Interpretation I performed an independent interpretation of an: EKG Interpretation: Normal sinus rhythm, HR-77, no STEMI, LA/QRS/QTC is within normal limits. Radiology Impression Radiologist Impression: My interpretation is in agreement with radiology's impression of imaging study. External Record Review External record reviewed: Outpatient record and Prior outpatient labs Chronic Conditions Patient?s care impacted by: Other Liver disease Critical Care Time Critical Care Time Critical Care Time: Yes Total Critical Care Time: 30 Attestation: I personally attest to this time spent taking care of the patient. Discharge Plan Discharge Clinical Impression: Mid back pain, Muscle spasm Patient Disposition: Home, Self-Care Instructions: Muscle Spasm (ED), Back Pain (ED) Additional Instructions: 1. Resume all home medications as prescribed. 2. Tylenol 1000 mg, orally, every 6 hours as needed for pain control. Do not exceed 4000 mg within 24 hours. 3. Lidocaine patch, these are available [id number] and should be applied as directed on the outside packaging. 4. Please follow-up with your primary care provider for re-evaluation and further outpatient management. Return to the ER for worsening symptoms. Prescriptions: New ketorolac 10 mg tablet 10 mg PO Q6H PRN (Reason: pain) 5 Days Qty: 20 0RF cyclobenzaprine 5 mg tablet 5 mg PO BEDTIME PRN (Reason: muscle spasm) Qty: 4 0RF No Action atenolol 25 mg tablet 25 mg PO DAILY Qty: 30 0RF Referrals: Kartik Valdez MD [Primary Care Provider] - Stand Alone Forms: Work/School Release
[2022-04-14 10:00] LABS: Basophils Absolute Auto 0.1 X10*3/uL (0.0-0.2); Basophils Percent Auto 1.3 % (0-2); Eosinophils Absolute Auto 0.2 X10*3/uL (0.0-0.4); Hematocrit 42.3 % (37.0-47.0); Lymphocytes Absolute Auto 1.9 X10*3/uL (1.2-4.9); Lymphocytes Percent Auto 34.9 % (20-40); Mean Corpuscular HGB Conc 33.8 g/dl (31.0-35.0); Mean Corpuscular Hemoglobin 28.9 pg (27.0-33.0); Mean Corpuscular Volume 85.6 fL (80.0-98.0); Mean Platelet Volume 10.3 fL (9.4-12.3); Monocytes Absolute Auto 0.5 X10*3/uL (0.1-1.2); Monocytes Percent Auto 8.2 % (2-11); Neutrophils Absolute Auto 2.8 x10*3/uL (2.0-8.3); Neutrophils Percent Auto 51.4 % (45-73); Red Blood Count 4.94 X10*6/uL (4.20-5.50); Red Cell Distribution Width 12.3 % (11.0-16.0)
[2022-04-14 10:02] LABS: White Blood Count 5.5 X10*3/uL (4.8-10.8)
[2022-04-14 10:06] LABS: D Dimer High Sensitivity 192 NG/ML
[2022-04-14 10:26] LABS: Alanine Aminotransferase 23 U/L (0-31); Albumin Level 4.4 g/dL (3.5-5.0); Alkaline Phosphatase 62 U/L (39-117); Anion Gap 14 (12-20); Aspartate Amino Transferase 24 U/L (5-31); Bilirubin Total 0.5 mg/dL (0.0-1.0); Blood Urea Nitrogen 19 mg/dL (9-16); Calcium 9.4 mg/dL (8.4-10.2); Carbon Dioxide 25 mmol/L (22-29); Chloride 104 mmol/L (96-108); Creatinine Clr Calc Pharmacy 86.4; Estimated Glomerular Filt Rate > 60; Glucose Random 141 mg/dL (60-115); Lipase 13 U/L (8-78); Potassium 4.3 mmol/L (3.3-5.1); Sodium 139 mmol/L (135-145); Total Protein 7.2 g/dL (6.5-8.0)
[2022-04-14 10:28] LABS: Troponin-I High Sensitivity < 3.5 ng/L (<3.5-17.0)
[2022-04-14 10:30] LABS: Platelet Count 181 X10*3/uL (160-400)
--- NOTE | 2022-04-14 10:45 | PC.NURSE ---
PT C/O MID BACK PAIN X3-4 DAYS GETTING PROGRESSIVELY WORSE. SHE HAS HX OF HEP C. SHE DENIES N/V/FEVER/CHILLS. NO SOB/ASCENCIO/DIZZINESS.
[2022-04-14] MEDS: Ketorolac Tromethamine 15 MG/ML VIAL IM (11:20)
[2022-04-14] MEDS: Lidocaine 4 % Patch ADH..PATCH 1 PATCH TRANSDERMA (11:21)
[2022-04-14 11:44] LABS: COVID-19 Test Negative (Negative); IDNOW Serial# 9DB6401D
[2022-04-14 11:49] LABS: IDNOW Serial# 6674DD1D; Influenza A Negative (Negative); Influenza B2 Negative (Negative)
[2022-04-14 11:52] VITALS: BP 125/75; PULSE 59; RESP 12; O2SAT 99
== END 2022-04-14 12:47 | disposition home or self-care (01) ==
PROVIDERS: Emergency Provider Student in an Organized Health Care Education/Training Program; PCP Internal Medicine
DX: M54.6 Pain in thoracic spine (principal); M62.830 Muscle spasm of back; Z20.822 Contact with and (suspected) exposure to COVID-19; I10 Essential (primary) hypertension; B19.20 Unspecified viral hepatitis C without hepatic coma; Z87.891 Personal history of nicotine dependence; Z79.899 Other long term (current) drug therapy
CPT/HCPCS: 36415; 71045; 80053; 83690; 84484; 85025; 85379; 87502; 87635; 93005; 96372; 99284; 99285; J1885

== ENCOUNTER 2022-06-19 13:13 | Outpatient (REF) | payer MEDICARE, OTHER, SELFPAY ==
[2022-06-22 18:59] LABS: Immunoglobulin A 109 mg/dL (70-320)
[2022-06-23 12:44] LABS: Gliadin Deamidated IgA Ab <1.0 U/mL; Gliadin Deamidated IgG Ab <1.0 U/mL; Transglutaminase Ab IgG <1.0 U/mL; Transglutaminase IgA <1.0 U/mL
[2022-06-25 15:53] LABS: Endomysial IgA Antibody Negative (Negative)
== END 2022-06-19 13:14 | disposition home or self-care (01) ==
LOC: HO.LAB 13:13
PROVIDERS: PCP Internal Medicine; Visit Provider Internal Medicine
DX: K59.00 Constipation, unspecified (principal); R14.0 Abdominal distension (gaseous)
CPT/HCPCS: 36415; 82784; 86231; 86258; 86364

== ENCOUNTER 2023-02-12 09:43 | Outpatient (REF) | payer MEDICARE, OTHER, SELFPAY ==
--- NOTE | ~2023-02-12 | US_ITS ---
EXAMINATION: US COMPLETE ABDOMEN WITH LIVER ELASTOGRAPHY CLINICAL INFORMATION: Hepatitis C. COMPARISON: Abdominal ultrasound dated 01/08/2022; MRI abdomen dated 01/27/2022. TECHNIQUE: Real-time imaging of the abdominal viscera. Noninvasive ultrasound liver fibrosis assessment is performed using Harjinder ElastPQ point quantification shear wave elastography (2D-SWE) with a C5-2 MHz transducer. Multiple elastography samples are obtained. FINDINGS: PANCREAS: Normal. The visualized pancreatic head and body are normal in appearance. The remainder of the pancreas is obscured from visualization by the overlying bowel gas. ABDOMINAL AORTA: The proximal, middle, and distal aortic segments are normal in caliber. The distal segment shows atherosclerotic plaque. INFERIOR VENA CAVA: Visualized portions are normal. LIVER: The liver demonstrates normal size, contour and echogenicity. Within the right hepatic lobe, a 1.0 x 1.1 x 1.7 cm hyperechoic circumscribed mass redemonstrated. On the prior ultrasound examinations dated 01/07/2022, this measured 1.3 x 1.0 x 1.6 cm. No focal lesion or intrahepatic biliary duct dilatation. The right lobe measures 1.72 cm in length. The left lobe measures 0.09 cm in length. Portal flow is towards the liver (hepatopetal). Shear wave liver elastography median stiffness is 1.72 m/s (reference: normal median stiffness is 1.3 m/s or less). IQR/median stiffness to assess sampling precision is 0.09 (reference: good quality data set is IQR/median stiffness of 0.15 or less). GALLBLADDER: Normal. The gallbladder is physiologically distended without evidence of stones, sludge, polyps, wall thickening or pericholecystic fluid. COMMON BILE DUCT: Normal in caliber measuring 0.3 cm in diameter. RIGHT KIDNEY: Normal. No hydronephrosis. No renal calculi or focal parenchymal lesions. The kidney measures 10.3 cm in maximum dimension. LEFT KIDNEY: Normal. No hydronephrosis. No renal calculi or focal parenchymal lesions. The kidney measures 9.0 cm in maximum dimension. SPLEEN: Normal. The spleen measures 8.9 cm in maximum dimension. FREE FLUID: None. US/US abdomen comp w elastography IMPRESSION: 1. There is generalized increase in hepatic echotexture, consistent with fatty infiltration or hepatocellular disease. Please correlate clinically. Provided history of hepatitis C noted. No biliary ductal dilatation is seen. 2. A stable 1.7 cm right hepatic lobe possible benign hemangioma is redemonstrated, consistent with prior ultrasound and MRI findings. The interim continued stability is reassuring. 3. Liver elastography: Measurements are suggestive of compensated advanced chronic liver disease but need further test for confirmation. REFERENCE: Society of Radiologists in Ultrasound Liver Stiffness Thresholds (2020): LIVER STIFFNESS THRESHOLDS: *Liver Stiffness equal or less than 1.3 m/s: High probability of being normal. *Liver Stiffness less than 1.7 m/s: In the absence of other known clinical signs, rules out compensated advanced chronic liver disease. *Liver Stiffness 1.7-2.1 m/s: Suggestive of compensated advanced chronic liver disease but need further test for confirmation. *Liver Stiffness over 2.1 m/s: Rules in compensated advanced chronic liver disease. *Liver Stiffness over 2.4 m/s: Suggestive of clinically significant portal hypertension. QUALITY OF DATA SET: *IQR/Median value equal or less than 0.15 implies a quality data set. *IQR/Median value over 0.15 implies a poor quality data set. SIGNIFICANT CHANGE FROM PRIOR EXAM: Significant change if liver stiffness measurement is 10% or greater from prior exam. OTHER CONSIDERATIONS: The stage of liver fibrosis may be overestimated in the setting of acute hepatitis, liver inflammation, elevated liver function tests, hepatic vascular congestion, obstructive cholestasis, non-fasting state, and infiltrative diseases such as amyloidosis and lymphoma. In some patients with NAFLD, the liver stiffness thresholds for compensated advanced chronic liver disease may be lower. In causes other than viral hepatitis and NAFLD, liver stiffness thresholds are not well established.
[2023-02-16 12:48] LABS: Alpha Fetoprotein 2.4 ng/mL
[2023-02-18 16:39] LABS: FIB-ALT 28 U/L (6-29); FIB-Alpha-2-Macroglobulin 356 mg/dL (106-279); FIB-Apolipoprotein A1 171 mg/dL (101-198); FIB-GGT 14 U/L (3-65); FIB-Haptoglobin 94 mg/dL (43-212); FIB-Total Bilirubin 0.5 mg/dL (0.2-1.2); Liver Fibrosis Stage F1-F2; Nec Inflam Act Grade A0; Nec Inflam Act Score 0.15
== END 2023-02-12 09:44 | disposition home or self-care (01) ==
LOC: HO.US 09:43
PROVIDERS: PCP Internal Medicine; Visit Provider Internal Medicine
DX: Z86.19 Personal history of other infectious and parasitic diseases (principal)
CPT/HCPCS: 36415; 76705; 76981; 81596; 82105

== ENCOUNTER 2024-02-09 08:58 | Outpatient (REF) | payer MEDICARE, OTHER, SELFPAY ==
--- NOTE | ~2024-02-09 | US_ITS ---
EXAMINATION: US COMPLETE ABDOMEN WITH LIVER ELASTOGRAPHY CLINICAL INFORMATION: Hepatitis C, liver fibrosis. COMPARISON: 02/12/2023. 01/27/2022. TECHNIQUE: Real-time imaging of the abdominal viscera. Noninvasive ultrasound liver fibrosis assessment is performed using Harjinder ElastPQ point quantification shear wave elastography (pSWE) with a C5-2 MHz transducer. Multiple elastography samples are obtained. FINDINGS: PANCREAS: The visualized pancreatic head and body are normal in appearance. The remainder of the pancreas is obscured from visualization by the overlying bowel gas. ABDOMINAL AORTA: The proximal, middle, and distal aortic segments are normal in caliber. INFERIOR VENA CAVA: Visualized portions are normal. LIVER: The liver demonstrates normal size and contour. There is mildly diffusely increased echogenicity. Redemonstration of a 1.2 x 1.0 x 1.2 cm oval hyperechoic oval mass in the dome of the right hepatic lobe, unchanged from 2021 and statistically most likely a benign hemangioma. No intra or extra-axial hepatic biliary ductal dilatation present. The right lobe measures 1.4 cm in length. The left lobe measures 5.1 cm in length. Portal flow is hepatopedal. Shear wave liver elastography median stiffness is 1.5 m/s (reference: normal median stiffness is 1.3 m/s or less). IQR/median stiffness to assess sampling precision is 0.14 (reference: good quality data set is IQR/median stiffness of 0.15 or less). This suggests a good quality data set. GALLBLADDER: The gallbladder is physiologically distended without evidence of stones, sludge, polyps, wall thickening or pericholecystic fluid. COMMON BILE DUCT: Normal in caliber measuring 0.3 cm in diameter. RIGHT KIDNEY: No hydronephrosis. No renal calculi or focal parenchymal lesions. The kidney measures 11.1 cm in maximum dimension. LEFT KIDNEY: No hydronephrosis. No renal calculi or focal parenchymal lesions. The kidney measures 10.0 cm in maximum dimension. SPLEEN: Unremarkable. The spleen measures 9.3 cm in maximum dimension. FREE FLUID: None. US/US abdomen comp w elastography IMPRESSION: 1. Mild generalized increase in hepatic echogenicity, nonspecific but most likely representing diffuse fatty infiltration and/or hepatocellular disease. 2. A stable 1.2 cm echogenic oval mass subdiaphragmatic right hepatic lobe, given stability from 2021 is statistically benign and most likely a benign hemangioma. No additional focal hepatic lesion. 3. Normal gallbladder and biliary system. 2. Liver elastography: 1.5 m/s. In the absence of other known clinical signs, measurements rule out compensated advanced chronic liver disease. If there are known clinical signs, further testing may be needed for confirmation. Liver stiffness measurement is without significant change from prior exam (change under 10%). REFERENCE: Society of Radiologists in Ultrasound Liver Stiffness Thresholds (2020): LIVER STIFFNESS THRESHOLDS: *Liver Stiffness equal or less than 1.3 m/s: High probability of being normal. *Liver Stiffness less than 1.7 m/s: In the absence of other known clinical signs, rules out compensated advanced chronic liver disease. *Liver Stiffness 1.7-2.1 m/s: Suggestive of compensated advanced chronic liver disease but need further test for confirmation. *Liver Stiffness over 2.1 m/s: Rules in compensated advanced chronic liver disease. *Liver Stiffness over 2.4 m/s: Suggestive of clinically significant portal hypertension. QUALITY OF DATA SET: *IQR/Median value equal or less than 0.15 implies a quality data set. *IQR/Median value over 0.15 implies a poor quality data set. SIGNIFICANT CHANGE FROM PRIOR EXAM: Significant change if liver stiffness measurement is 10% or greater from prior exam. OTHER CONSIDERATIONS: The stage of liver fibrosis may be overestimated in the setting of acute hepatitis, liver inflammation, elevated liver function tests, hepatic vascular congestion, obstructive cholestasis, non-fasting state, and infiltrative diseases such as amyloidosis and lymphoma. In some patients with NAFLD, the liver stiffness thresholds for compensated advanced chronic liver disease may be lower. In causes other than viral hepatitis and NAFLD, liver stiffness thresholds are not well established. Electronically signed by: Clovis Vanegas MD 03/21/2024 09:50 AM [facility]
[2024-02-09 09:36] LABS: MANUAL DIFF FLAG NO
[2024-02-09 11:04] LABS: Basophils Absolute Auto 0.1 X10*3/uL (0.0-0.2); Basophils Percent Auto 1.1 % (0-2); Eosinophils Absolute Auto 0.2 X10*3/uL (0.0-0.4); Eosinophils Percent Auto 4.3 % (0-4); Hematocrit 42.1 % (37.0-47.0); Hemoglobin 14.3 g/dl (12.0-16.0); Imm Gran Abs Auto 0.02 X10*3/uL (0.00-0.03); Imm Gran Pct Auto 0.4 % (0.0-0.4); Lymphocytes Absolute Auto 2.3 X10*3/uL (1.2-4.9); Lymphocytes Percent Auto 40.6 % (20-40); Mean Corpuscular Hemoglobin 29.7 pg (27.0-33.0); Mean Corpuscular Volume 87.5 fL (80.0-98.0); Mean Platelet Volume 9.9 fL (9.4-12.3); Monocytes Absolute Auto 0.5 X10*3/uL (0.1-1.2); Monocytes Percent Auto 8.3 % (2-11); Neutrophils Absolute Auto 2.6 x10*3/uL (2.0-8.3); Neutrophils Percent Auto 45.3 % (45-73); Platelet Count 203 X10*3/uL (160-400); Red Blood Count 4.81 X10*6/uL (4.20-5.50); Red Cell Distribution Width 12.2 % (11.0-16.0); White Blood Count 5.6 X10*3/uL (4.8-10.8)
[2024-02-09 11:07] LABS: Prothrombin Time 11.9 SEC (10.9-12.4)
[2024-02-09 11:36] LABS: Alanine Aminotransferase 30 U/L (0-31); Albumin Level 4.3 g/dL (3.5-5.0); Alkaline Phosphatase 64 U/L (39-117); Aspartate Amino Transferase 31 U/L (5-31); Bilirubin Direct 0.2 mg/dL (0.0-0.5); Bilirubin Total 0.6 mg/dL (0.0-1.0); Total Protein 7.4 g/dL (6.5-8.0)
[2024-02-10 12:44] LABS: Alpha Fetoprotein 1.9 ng/mL
[2024-02-11 15:38] LABS: HCV Log PCR <1.18 NOT DETECTED Log IU/mL (NOT DETECTED); HepC Viral Load <15 NOT DETECTED IU/mL (NOT DETECTED)
[2024-02-16 14:59] LABS: FIB-ALT 18 U/L (6-29); FIB-Alpha-2-Macroglobulin 382 mg/dL (106-279); FIB-Apolipoprotein A1 146 mg/dL (101-198); FIB-GGT 10 U/L (3-65); FIB-Haptoglobin 94 mg/dL (43-212); FIB-Total Bilirubin 0.4 mg/dL (0.2-1.2); Liver Fibrosis Score 0.44; Liver Fibrosis Stage F1-F2; Nec Inflam Act Grade A0; Nec Inflam Act Score 0.08; Reference ID 5199211
== END 2024-02-09 08:59 | disposition home or self-care (01) ==
LOC: HO.US 08:58
PROVIDERS: PCP Internal Medicine; Visit Provider Internal Medicine
DX: K74.00 Hepatic fibrosis, unspecified (principal); Z86.19 Personal history of other infectious and parasitic diseases; R93.2 Abnormal findings on diagnostic imaging of liver and biliary tract
CPT/HCPCS: 36415; 76700; 76981; 80076; 81596; 82105; 85025; 85610; 87522

== ENCOUNTER → 2024-02-09 09:35 | Outpatient (BNV) | payer MEDICARE, OTHER, SELFPAY | PROVIDERS: PCP Internal Medicine; Visit Provider Radiology Diagnostic Radiology | DX: K74.00 Hepatic fibrosis, unspecified (principal) | CPT/HCPCS: 76981 ==

== ENCOUNTER 2025-01-18 10:50 | Outpatient (REF) | payer MEDICARE, OTHER, SELFPAY ==
--- OUTSIDE RECORDS SUMMARY | 2024-01-25 06:30 | XMS_ITS ---
Author Organization [facility] Address [address] [place] [address] Care Team Providers Care Graduate Assistant Athletic Trainer Name Role Phone Kartik Valdez Primary Care Provider Jasmina Jeffrey Unavailable [phone] Allergies Allergen (clinical drug ingredient) Drug/Non Drug [...] 08/29/2021 Active Mupirocin 2 % 1 application Injury/Safety Hazard Assessment ally Twice a day; Duration: 5 day(s) 08/29/2021 Active traZODone HCl Active Cephalexin 500 MG 1 capsule Orally 2 tablets prior to procedure; Duration: 5 days 08/29/2021 Active Gabapentin 300 MG TAKE 1 CAPSULE BY [facility] EVERY DAY FOR 90 DAYS; Duration: 90 Active Meclizine HCl 25 MG 1 tablet as needed Orally Once a day PRN Active Sertraline HCl 25 MG 3 tablet Orally Onc e a day Active Incruse Ellipta 62.5 MCG/INH 1 puff Inhalation Once a day Active Lasix 40 MG 1 tablet Orally thre e times a week Active Encounters Encounter Location Date Provider Diagnosis [facility] [place] [address] [place] [address] 01/25/2024 Jasmina Santana Plan Of Treatment No Information Progress Notes * Ivy HAbryceDOB: 7 (69 yo F)Acc No.[id number]:01/25/2024 Progress Note Patient: Humera RAO Provider: Alberto Santana DPM :1955 A ge:68 Y S ex:Female Date:01/25/2024 Address:[address] [place], [place] [id number] Pcp:Kartik Valdez Subjective: * Chief Complaints: * [...] DPM Date: Generated for Eulalia espino/Tunde/Markel on: 01:41 PM EDT
--- OUTSIDE RECORDS SUMMARY | 2024-09-25 12:50 | XMS_ITS | Continuity of Care Document ---
Author Organization [facility] Address [address] [place] [phone] Phone Care Team Providers Care Cow Tester Name Role Phone Delon Ortiz APRN Unavailable Unavailable Allergies, Adverse Reactions, Alerts Substance Reaction Status Criticality PENICILLIN Active No Information Medications Medication Instructions Dosage Effective Dates (start - stop) Status Comments oxybutynin chloride ER 5 mg tablet,extended release 24 hr TAKE ONE TABLET BY MOUTH DAILY - Active levothyroxine 137 mcg capsule take 1 capsule by oral route every day 137 MCG - Active cefdinir 300 mg capsule take 1 capsule by oral route every 12 hours 300 MG - Active prednisone 10 mg tablet take 1 tablet by oral route every day 10 MG - Active citalopram 40 mg tablet take 1 tablet by oral route every day 40 MG - Active fluticasone propionate 50 mcg/actuation nasal spray,suspension inhale 1 spray by intranasal route every day in each nostril 50 MCG - Active Breo Ellipta 100 mcg-25 mcg/dose powder for inhalation inhale 1 puff by inhalation route every day at the same time each day 1.00 puff - Active Incruse Ellipta 62.5 mcg/actuation powder for inhalation inhale 1 puff by inhalation route every day at the same time each day 62.5 MCG - Active meloxicam 7.5 mg tablet take 1 tablet by oral route every day 7.5 MG - Active montelukast 10 mg tablet take 1 tablet by oral route every day in the evening 10 MG - Active alprazolam 0.25 mg tablet take 1 tablet by oral route 3 times every day 0.25 MG - Active albuterol sulfate HFA 90 mcg/actuation aerosol inhaler inhale 2 puff by inhalation route every 4 - 6 hours as needed 180 MCG - Active albuterol sulfate 2.5 mg/3 mL (0.083 %) solution for nebulization inhale 3 milliliter by nebulization route 3 times every day 2.5 MG - Active Advance Directives Directive Yes / No Effective Date File Name No Information Encounters Encounter Description Practice Location Reason(s) For Visit Diagnoses Date Provider [facility], [address] [place] [address], [id number], tel:[phone] [facility] No Information 2024 Angel Jernigan. [address] [place] [address], [id number]. tel:[phone] [facility], [address] [place] [address], [id number], tel:[phone] [facility] No Information 2024 Sandy Hammer. [address] [place] [address], [id number], . tel:[phone] [facility], [address] [place] [address], [id number], tel:[phone] [facility] No Information 2023 Angel Jernigan. [address] [place] [address], [id number]. tel:[phone] [facility], [address] [place] [address], [id number], tel:[phone] [facility] No Information 2023 Angel Jernigan. [address] [place] [address], [id number]. tel:[phone] Family History Family Member Type Diagnosis Age At Onset No Information Payers Payer name Insurance type Covered alliance party ID Authoriza tion(s) No Information Social History Type Description Quantity Date Captured Comments Sex Female Smoking Status No Information Chief Complaint And Reason For Visit No Information History Of Present Illness Encounter Date Complaint History Of Prese nt Illness No Information Instructions Date Instruction Additional Infor mation No Information Assessments Type Assessment Date No Information
[2025-01-18 13:30] LABS: MANUAL DIFF FLAG NO
[2025-01-18 13:40] LABS: Hematocrit 43.2 % (37.0-47.0); Hemoglobin 14.3 g/dl (12.0-16.0); INTERNATIONAL NORM RATIO 1.0 (0.9-1.1); Imm Gran Abs Auto 0.02 X10*3/uL (0.00-0.03); Imm Gran Pct Auto 0.3 % (0.0-0.4); Lymphocytes Absolute Auto 2.1 X10*3/uL (1.2-4.9); Mean Corpuscular HGB Conc 33.1 g/dl (31.0-35.0); Mean Corpuscular Hemoglobin 29.2 pg (27.0-33.0); Mean Corpuscular Volume 88.3 fL (80.0-98.0); NRBC Abs Auto 0.000 X10*3/uL (0.0-0.012); NRBC Pct Auto 0.0 /100WBC (0.0-0.2); Platelet Count 203 X10*3/uL (160-400); Prothrombin Time 12.0 SEC (10.9-12.4); Red Blood Count 4.89 X10*6/uL (4.20-5.50); White Blood Count 6.0 X10*3/uL (4.8-10.8)
--- OUTSIDE RECORDS SUMMARY | 2025-01-18 13:41 | XMS_ITS | Patient Health Record ---
Author Organization [facility] Address [address] [facility] [place] [address] Care Team Providers Care Epic Specialist Name Role Phone Kartik Valdez Primary Care Provider Jasmina Jeffrey Unavailable [phone] Allergies Allergen (clinical drug ingredient) Drug/Non Drug Allergy documented on EMR Reaction Allergy Type Onset Date Status amoxicillin Amoxicillin rash Drug Allergy Act meng Metoprolol Succinate Unknown Drug Allergy Active acetaminophen / oxycodone Percocet Unknown Drug Allergy Active Penicillin rash Drug Allergy Active codeine Codeine itchy Drug Allergy Active morphine Morphine shortness of breath Drug Allergy Active Reason For Referral No Information Medications Medication SIG (Take, Route, Frequency, Duration) Notes Start Date End Date Status Sertraline HCl 25 MG 3 tablet Orally Onc e a day Active Ativan 0.5 MG 1 tablet as needed Orally every 6 hrs Not-Taking Incruse Ellipta 62.5 MCG/INH 1 puff Inhalation Once a day Active Clindamycin HCl 300 MG 1 capsule Orally every 6 hrs; Duration: 7 days 12/09/2018 Not-Taking Clindamycin HCl 300 MG 1 capsule Orally 2 tables prior to procedure; Duration: 5 days 08/29/2021 Active Mupirocin 2 % 1 application Software Programmer ally Twice a day; Duration: 5 day(s) 08/29/2021 Active traZODone HCl Active Cephalexin 500 MG 1 capsule Orally 2 tablets prior to procedure; Duration: 5 days 08/29/2021 Active Crestor 20 MG Orally Once a day Not-Taking Lasix 40 MG 1 tablet Orally thre e times a week Active Mupirocin 2 % 1 application to affected area Externally Daily; Duration: 14 days 12/14/2018 Not-Yao ing Gabapentin 300 MG TAKE 1 CAPSULE BY [facility] EVERY DAY FOR 90 DAYS; Duration: 90 Active Spiriva HandiHaler 18 MCG 1 capsule Inhalation Once a day Not-Taking Meclizine HCl 25 MG 1 tablet as needed Orally Once a day PRN Active Social History Tobacco Use: Social History Observation Description Date Details (start date - stop date) Former Smoker NA - NA Tobacco Use/Smoking Question Answer Notes Are you a: former smoker When did you start smoking? 1973 When did you stop smoking? 1991 Additional Findings: Tobacco User Modera te cigarette smoker (10-19 cigs/day) Additional Findings: Tobacco Non-User Current no n-smoker Alcohol Screen Question Answer Notes Did you have a drink containing alcohol in the p ast year? No Points 0 Interpretation Negative Tobacco use other than smoking: Question Answer Notes Are you an other tobacco user? 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) Active confirmed Problem Ulcer of left lower leg (disorder) (73550149160143 103) Non-pressure ulcer of left lower extremity with fat layer exposed (L97.922) Active confirmed Encounters Encounter Location Date Provider Diagnosis [facility] [place] [address] [place] [address] 01/24/2024 Jasmina Santana Plan Of Treatment No Information Insurance Providers Payer Name Payer Address Payer Phone Subscriber Number Group Number Insured Name Patient Relationship to Insured Coverage Start Date Coverage End Date Medicare National [facility] [address] [place] [address] [id number] Humera Ha Self - patient is the insured [facility] ([facility] [address] [place] [address] [phone] [id number] Humera Ha Self - patient is the insured Medical (General) History Medical History History ICD Code Anxiety Arthritis asthma CAD (Cholesterol) Hepatitis C High blood pressure chronic sinusitis Measles Mumps Chicken pox Transfusions Degenerative joint disease Surgical History Surgery Date(Month/Year) knee replacement - [place] 2008 carpal tunnel both hands
--- OUTSIDE RECORDS SUMMARY | 2025-01-18 13:41 | XMS_ITS | Patient Health Record ---
Author Organization [facility] Address [address] [place] [address] Care Team Providers Care Health Information Technician Name Role Phone Fatemeh Valdez MD Primary Care Provider Haris Shipley [phone] Allergies Allergen (clinical drug ingredient) Drug/Non Drug Allergy documented on EMR Reaction Allergy Type Onset Date Status Penicillin rash Drug Allergy Active morphine Morphine resp/hallucinat ions Drug Allergy Active metoprolol Metoprolol low heart rate Drug Allergy Active erythromycin Erythromycin severe GI symptoms Drug Allergy Active Results Component Value Reference Range Notes Complete Blood Count Auto Di ff Reviewed date:02/10/2024 01:40:42 PM Interpretation: Performing Lab:[facility], [address] [place] [phone] Notes/Report: White Blood Count 5.6 4.8-10.8 X10*3/uL Red Blood Count 4.81 4.20-5.50 X10*6/uL Hemoglobin 14.3 12.0-16.0 g/dl Hematocrit 42.1 37.0-47.0 % Mean Corpuscular Volume 87.5 80.0-98.0 fL Mean Corpuscular Hemoglobin 29.7 27.0-33.0 pg Mean Corpuscular HGB Conc 34.0 31.0-35.0 g/dl Red Cell Distribution Width 12.2 11.0-16.0 % Platelet Count 203 160-400 X10*3/uL Mean Platelet Volume 9.9 9.4-12.3 fL Neutrophils Percent Auto 45.3 45-73 % Imm Gran Pct Auto 0.4 0.0-0.4 % Lymphocytes Percent Auto 40.6 20-40 % Monocytes Percent Auto 8.3 2-11 % Eosinophils Percent Auto 4.3 0-4 % Basophils Percent Auto 1.1 0-2 % NRBC Pct Auto 0.0 0.0-0.2 /100WBC Neutrophils Absolute Auto 2.6 2.0-8.3 x10*3/u L Imm Gran Abs Auto 0.02 0.00-0.03 X10*3/uL Lymphocytes Absolute Auto 2.3 1.2-4.9 X10*3/u L Monocytes Absolute Auto 0.5 0.1-1.2 X10*3/uL Eosinophils Absolute Auto 0.2 0.0-0.4 X10*3/u L Basophils Absolute Auto 0.1 0.0-0.2 X10*3/uL NRBC Abs Auto 0.000 0.0-0.012 X10*3/uL Prothrombin Time INR Reviewed date:02/10/2024 01:40:49 PM Interpretation: Performing Lab:[address] [phone] Notes/Report: Prothrombin Time 11.9 10.9-12.4 SEC INTERNATIONAL NORM RATIO 1.0 0.9-1.1 INTERNATIONAL NORMALIZED RATIO (INR) REFERENCE RANGES Reference Range For patients not on anticoagulant therapy: 0.9 - 1.1 INR ranges for oral anticoagulant therapy: For prevention and treatment of venous thrombosis and pulmonary embolism: 2.0 - 3.0 For acute myocardial infarction with aspirin therapy: 2.0 - 3.0 For acute myocardial infarction without aspirin therapy: 3.0 - 4.0 For patients with mechanical prosthetic heart valves: 2.5 - 3.5 Liver Panel Reviewed date:02/10/2024 01:41:13 PM Interpretation: Performing Lab:[address] [phone] Notes/Report: Bilirubin Total 0.6 0.0-1.0 mg/dL Bilirubin Direct 0.2 0.0-0.5 mg/dL Aspartate Amino Transferase 31 5-31 U/L Alanine Aminotransferase 30 0-31 U/L Total Protein 7.4 6.5-8.0 g/dL Albumin Level 4.3 3.5-5.0 g/dL Alkaline Phosphatase 64 39-117 U/L Alpha Fetoprotein Reviewed date:02/17/2024 08:47:04 PM Interpretation: Performing Lab:[facility], [address] [place] [phone] Notes/Report: Alpha Fetoprotein 1.9 Reference Range: <6.1 The use of AFP as a tumor marker in females is not recommended. This test was performed using the [place] chemiluminescent method. Values obtained from different assay methods cannot be used interchangeably. AFP levels, regardless of value, should not be interpreted as absolute evidence of the presence or absence of disease. THIS TEST WAS PERFORMED AT: [facility] [address] [place] [phone] NELI MEYER MD Liver Fibrosis Pnl Reviewed date:03/21/2024 12:02:54 AM Interpretation: Performing Lab:[facility], [address] [place] [phone] Notes/Report: Liver Fibrosis Score 0.44 Liver Fibrosis Stage F1-F2 Liver Fibrosis Interpretation SEE NOTE minimal fibrosis Fibro Test Score (f) Metavir Score f>=0 and f<=0.21 : F0 (no fibrosis) f>0.21 and f<=0.27 : F0-F1 (no fibrosis) f>0.27 and f<=0.31 : F1 (minimal fibrosis) f>0.31 and f<=0.48 : F1-F2 (minimal fibrosis) f>0.48 and f<=0.58 : F2 (moderate fibrosis) f>0.58 and f<=0.72 : F3 (advanced fibrosis) f>0.72 and f<=0.74 : F3-F4 (advanced fibrosis) f>0.74 and f<=1.00 : F4 (severe fibrosis) Nec Inflam Act Score 0.08 Nec Inflam Act Grade A0 Nec Inflam Act Interpretation SEE NOTE no activity ActiTest Score (a) Metavir Score a>=0 and a<=0.17 : A0 (no activity) a>0.17 and a<=0.29 : A0-A1 (no activity) a>0.29 and a<=0.36 : A1 (minimal activity) a>0.36 and a<=0.52 : A1-A2 (minimal activity) a>0.52 and a<=0.60 : A2 (significant activity) a>0.60 and a<=0.62 : A2-A3 (significant activity) a>0.62 and a<=1.00 : A3 (severe activity) CCN-Etqyj-5-Macroglobulin 382 106-279 mg/dL FIB-Haptoglobin 94 43-212 mg/dL FIB-Apolipoprotein A1 146 101-198 mg/dL FIB-Total Bilirubin 0.4 0.2-1.2 mg/dL FIB-GGT 10 3-65 U/L FIB-ALT 18 6-29 U/L Reference ID [id number] Footnote SEE NOTE The reliability of results is dependent on compliance with the preanalytical and analytical conditions recommended by [employer]. The tests have to be deferred for: acute hemolysis, acute hepatitis, acute inflammation, extra hepatic cholestasis. The advice of a specialist should be sought for interpretation in chronic hemolysis and Gilbert's syndrome. The test interpretation is not validated in liver transplant patients. Isolated extreme values of one of the components should lead to caution in interpreting the results. In case of discordance between a biopsy result and a test, it is recommended to seek the advice of a specialist. The causes of these discordances could be due to a flaw of the test or to a flaw in the biopsy: i.e. a liver biopsy has a 33% variability rate for one fibrosis stage. FibroTest is interpretable for chronic hepatitis B and C, alcoholic and non alcoholic steatosis. ActiTest is interpretable for chronic hepatitis B and C. The performance characteristics have been determined by [employer] [facility]. It has not been cleared or approved by the U.S. Food and Drug Administration. Performance characteristics refer to the analytical performance of the test. Down, [employer], the associated logo, [employer] and all associated [employer] del tor[employer] are the registered trademarks of [employer]. All third republican del toro - (R) and (TM) - are the property of their respective owners. (C) [id number] [employer]. All rights reserved. THIS TEST WAS PERFORMED AT: [facility] [facility] [address] [facility] [address] KAMLESH SOTO MD,PHD,KATALINA Hep C Viral Load Reviewed date:02/17/2024 08:46:45 PM Interpretation: Performing Lab:[facility], [address] [place] [phone] Notes/Report: HepC Viral Load <15 NOT DETECTED NOT DETECTED IU/mL HCV Log PCR <1.18 NOT DETECTED NOT DETECTED Log IU/mL For additional information, please refer to [email or web address].Wooga/faq/FAQ22v 1 (This link is being provided for informational/ educational purposes only.) THIS TEST WAS PERFORMED AT: [facility] [address] [place] [phone] NELI MEYER MD US abdomen comp w elastograp hy Reviewed date:03/21/2024 11:11:09 PM Interpretation: Performing Lab: Notes/Report: [address] [address] Ultrasound Report Signed Patient: Mansoor Ha MR#: [id number] : 1955 Acct:[id number] Age/Sex: 68 / F ADM Date: 02/09/24 Loc: HO.US Attending Dr: Haris Vines MD Ordering Physician: Haris Vines MD Date of Service: 02/09/24 Procedure(s): US abdomen comp w elastography Accession Number(s): [id number] cc: FATEMEH VALDEZ MD; Haris Vines MD EXAMINATION: US COMPLETE ABDOMEN WITH LIVER ELASTOGRAPHY CLINICAL INFORMATION: Hepatitis C, liver fibrosis. COMPARISON: 02/12/2023. 01/27/2022. TECHNIQUE: Real-time imaging of the abdominal viscera. Noninvasive ultrasound liver fibrosis assessment is performed using Harjinder ElastPQ point quantification shear wave elastography (pSWE) with a C5-2 MHz transducer. Multiple elastography samples are obtained. FINDINGS: PANCREAS: The visualized pancreatic head and body are normal in appearance. The remainder of the pancreas is obscured from visualization by the overlying bowel gas. ABDOMINAL AORTA: The proximal, middle, and distal aortic segments are normal in caliber. INFERIOR VENA CAVA: Visualized portions are normal. LIVER: The liver demonstrates normal size and contour. There is mildly diffusely increased echogenicity. Redemonstration of a 1.2 x 1.0 x 1.2 cm oval hyperechoic oval mass in the dome of the right hepatic lobe, unchanged from 2021 and statistically most likely a benign hemangioma. No intra or extra-axial hepatic biliary ductal dilatation present. The right lobe measures 1.4 cm in length. The left lobe measures 5.1 cm in length. Portal flow is hepatopedal. Shear wave liver elastography median stiffness is 1.5 m/s (reference: normal median stiffness is 1.3 m/s or less). IQR/median stiffness to assess sampling precision is 0.14 (reference: good quality data set is IQR/median stiffness of 0.15 or less). This suggests a good quality data set. GALLBLADDER: The gallbladder is physiologically distended without evidence of stones, sludge, polyps, wall thickening or pericholecystic fluid. COMMON BILE DUCT: Normal in caliber measuring 0.3 cm in diameter. RIGHT KIDNEY: No hydronephrosis. No renal calculi or focal parenchymal lesions. The kidney measures 11.1 cm in maximum dimension. LEFT KIDNEY: No hydronephrosis. No renal calculi or focal parenchymal lesions. The kidney measures 10.0 cm in maximum dimension. SPLEEN: Unremarkable. The spleen measures 9.3 cm in maximum dimension. FREE FLUID: None. US/US abdomen comp w elastography IMPRESSION: 1. Mild generalized increase in hepatic echogenicity, nonspecific but most likely representing diffuse fatty infiltration and/or hepatocellular disease. 2. A stable 1.2 cm echogenic oval mass subdiaphragmatic right hepatic lobe, given stability from 2021 is statistically benign and most likely a benign hemangioma. No additional focal hepatic lesion. 3. Normal gallbladder and biliary system. 2. Liver elastography: 1.5 m/s. In the absence of other known clinical signs, measurements rule out compensated advanced chronic liver disease. If there are known clinical signs, further testing may be needed for confirmation. Liver stiffness measurement is without significant change from prior exam (change under 10%). REFERENCE: Society of Radiologists in Ultrasound Liver Stiffness Thresholds (2020): LIVER STIFFNESS THRESHOLDS: *Liver Stiffness equal or less than 1.3 m/s: High probability of being normal. *Liver Stiffness less than 1.7 m/s: In the absence of other known clinical signs, rules out compensated advanced chronic liver disease. *Liver Stiffness 1.7-2.1 m/s: Suggestive of compensated advanced chronic liver disease but need further test for confirmation. *Liver Stiffness over 2.1 m/s: Rules in compensated advanced chronic liver disease. *Liver Stiffness over 2.4 m/s: Suggestive of clinically significant portal hypertension. QUALITY OF DATA SET: *IQR/Median value equal or less than 0.15 implies a quality data set. *IQR/Median value over 0.15 implies a poor quality data set. SIGNIFICANT CHANGE FROM PRIOR EXAM: Significant change if liver stiffness measurement is 10% or greater from prior exam. OTHER CONSIDERATIONS: The stage of liver fibrosis may be overestimated in the setting of acute hepatitis, liver inflammation, elevated liver function tests, hepatic vascular congestion, obstructive cholestasis, non-fasting state, and infiltrative diseases such as amyloidosis and lymphoma. In some patients with NAFLD, the liver stiffness thresholds for compensated advanced chronic liver disease may be lower. In causes other than viral hepatitis and NAFLD, liver stiffness thresholds are not well established. Electronically signed by: Clovis Vanegas MD 03/21/2024 09:50 AM [facility] Dictated By: Clovis Vanegas MD Signed By: <Electronically signed by Clovis Vanegas MD in OV> 03/21/24 0950 DD/ 1008 TD/TT: 02/09/24 1021 [facility] Apprentice: Reason For Referral No Information Medications Medication SIG (Take, Route, Frequency, Duration) Notes Start Date End Date Status Anoro Ellipta 62.5-25 MCG/ACT 1 puff Inhalation prn Active Gabapentin 300 MG Oral; Duration: 90 Active Mounjaro 5 MG/0.5ML INJECT 0.5 ML (5 MG TOTAL) UNDER THE SKIN ONE TIME PER WEEK Subcutaneous; Duration: 84 Active Lactulose 10 GM/15ML 45 milliliters Oral ly Once a day for constipation; Duration: 90 days Active Zafirlukast 20 MG TAKE 1 TABLET BY HAYDEE TH TWICE A DAY Oral; Duration: 90 Active Lisinopril 10 MG 1 tablet Orally Once a day Active Combivent Respimat 20-100 MCG/ACT INHALE 1 PUFF BY MOUTH EVERY 4 HOURS NEEDED Inhalation; Duration: 30 Active Probiotic Blend Acti ve MiraLax 17 GM/SCOOP 1 scoop mixed with 8 ounces of fluid Orally Once a day; Duration: 30 day(s) Active Senna Plus 50-8.6 MG 2 capsules at bedti me with a full glass of water as needed Orally Once a day; Duration: 30 day(s) Active Multivitamin Active Zocor 20 MG 1 tablet in the even ing Orally Once a day; Duration: 30 day(s) Active Melatonin 1 MG 1 capsule at bedtime as needed Orally Once a day; Duration: 30 day(s) Active Immunizations Vaccine Route Administration Date Status Comme nts Influenza Unknown 12/04/2020 Administered Influenza Unknown 12/04/2021 Administered Influenza Unknown 01/19/2024 Administered Social History Tobacco Use: Social History Observation Description Date Details (start date - stop date) Former Smoker NA - NA Tobacco Use/Smoking Question Answer Notes Patient is a former smoker How long has it been since you last smoked? > 10 years Alcohol Screen Question Answer Notes Did you have a drink containing alcohol in the p ast year? No Points 0 Interpretation Negative Section Notes: Nonsmoker x 40 years; no sig alcohol Nonsmoker x 40 years; no sig alcohol Nonsmoker x 40 years; no sig alcohol Nonsmoker x 40 years; no sig alcohol Nonsmoker x 40 years; no sig alcohol Problems Problem Type SNOMED Code ICD Code Onset Dates Problem Status W/U Status Risk Notes Problem Colon cancer screening (988334506) Colon cancer screening (Z12.11) Active confirmed Problem Constipation (47759441) Constipation (K59.00) Active confirmed Problem Abnormal findings diagnostic imaging of liver and biliary tract (693606001) Abnormal liver ultrasound (R93.2) Active confirmed Problem Hepatic hemangioma (22248365) Hepatic hemangioma (D18.03) Active confirmed Problem History of hepatitis C (11918190094215) History of hepatitis C (Z86.19) Active confirmed Problem Flatulence, eructation and gas pain (771777874) Gaseous abdominal distention (R14.0) Active confirmed Problem Fibrosis of liver (33709900) Fibrosis of liver (K74.00) Active confirmed Problem Fatty liver (089400435) Fatty infiltration of liver (K76.0) Active confirmed Vital Signs Temperature 97.3 degrees Fahrenheit 01/18/2025 Blood pressure diastolic 01 mm Hg 01/18/2025 Height 64 in 01/18/2025 Blood pressure systolic 001 mm Hg 01/18/2025 Weight 190 lbs 01/18/2025 BMI 32.61 kg/m2 01/18/2025 Encounters Encounter Location Date Provider Diagnosis [facility] [address] [place] [address] 01/18/2025 Haris Vines History of hepatitis C Z86.19 ; Constipation K59.00 ; Fibrosis of liver K74.00 ; Fatty infiltration of liver K76.0 ; Hepatic hemangioma D18.03 and Colon cancer screening Z12.11 [facility] [address] [place] [address] 01/20/2024 Haris Vines Constipation K59.00 ; Fibrosis of liver K74.00 ; History of hepatitis C Z86.19 ; Abnormal liver ultrasound R93.2 and Fatty infiltration of liver K76.0 [facility] [address] [place] [address] 03/20/2024 Haris Vines Assessments Encounter Date Diagnosis (ICD Code) Assessment Notes Treatment Notes Treatment Clinical Notes Section Notes 01/18/2025 Constipation (ICD-10 - K59.00) Continue Lactulose and Miralax for the constipation 01/18/2025 History of hepatitis C (ICD-10 - Z86.19) 01/20/2024 Constipation (ICD-10 - K59.00) Overall, Mckayla appears quite well at the present time. She does not have any signs signs nor describe any symptoms of decompensating liver disease. Her recent laboratories are reassuring as well. Given her previous history of chronic hepatitis C and some underlying liver disease, I did recommend followup laboratories as ordered below and a followup abdominal ultrasound given that her last studies were done about one year ago. We did review that these studies should be done every year. I did give her a new prescription to use lactulose as needed for constipation as well. We did review that she'll be due for a followup screening colonoscopy in 2028 given her last exam being negative in 2019 and no known family history of colorectal cancer. If things otherwise remain stable I will plan to see Mckayla one year for a followup office visit. I did advise her to contact me in the interim if she has any problems or questions I can be of assistance with. Mckayla was very comfortable with this plan. Thank you again for allowing me to participate in Mckayla's care. I shall continue to keep you advised of her progress. 01/20/2024 Fibrosis of liver (ICD-10 - K74.00) Overall, Mckayla appears quite well at the present time. She does not have any signs signs nor describe any symptoms of decompensating liver disease. Her recent laboratories are reassuring as well. Given her previous history of chronic hepatitis C and some underlying liver disease, I did recommend followup laboratories as ordered below and a followup abdominal ultrasound given that her last studies were done about one year ago. We did review that these studies should be done every year. I did give her a new prescription to use lactulose as needed for constipation as well. We did review that she'll be due for a followup screening colonoscopy in 2028 given her last exam being negative in 2019 and no known family history of colorectal cancer. If things otherwise remain stable I will plan to see Mckayla one year for a followup office visit. I did advise her to contact me in the interim if she has any problems or questions I can be of assistance with. Mckayla was very comfortable with this plan. Thank you again for allowing me to participate in Mckayla's care. I shall continue to keep you advised of her progress. 01/18/2025 Fibrosis of liver (ICD-10 - K74.00) 01/20/2024 History of hepatitis C (ICD-10 - Z86.19) Overall, Mckayla appears quite well at the present time. She does not have any signs signs nor describe any symptoms of decompensating liver disease. Her recent laboratories are reassuring as well. Given her previous history of chronic hepatitis C and some underlying liver disease, I did recommend followup laboratories as ordered below and a followup abdominal ultrasound given that her last studies were done about one year ago. We did review that these studies should be done every year. I did give her a new prescription to use lactulose as needed for constipation as well. We did review that she'll be due for a followup screening colonoscopy in 2028 given her last exam being negative in 2019 and no known family history of colorectal cancer. If things otherwise remain stable I will plan to see Mckayla one year for a followup office visit. I did advise her to contact me in the interim if she has any problems or questions I can be of assistance with. Mckayla was very comfortable with this plan. Thank you again for allowing me to participate in Mckayla's care. I shall continue to keep you advised of her progress. 01/18/2025 Fatty infiltration of liver (ICD-10 - K76.0) 01/20/2024 Abnormal liver ultrasound (ICD-10 - R93.2) Overall, Mckayla appears quite well at the present time. She does not have any signs signs nor describe any symptoms of decompensating liver disease. Her recent laboratories are reassuring as well. Given her previous history of chronic hepatitis C and some underlying liver disease, I did recommend followup laboratories as ordered below and a followup abdominal ultrasound given that her last studies were done about one year ago. We did review that these studies should be done every year. I did give her a new prescription to use lactulose as needed for constipation as well. We did review that she'll be due for a followup screening colonoscopy in 2028 given her last exam being negative in 2019 and no known family history of colorectal cancer. If things otherwise remain stable I will plan to see Mckalya one year for a followup office visit. I did advise her to contact me in the interim if she has any problems or questions I can be of assistance with. Mckayla was very comfortable with this plan. Thank you again for allowing me to participate in Mckayla's care. I shall continue to keep you advised of her progress. 01/18/2025 Hepatic hemangioma (ICD-10 - D18.03) 01/20/2024 Fatty infiltration of liver (ICD-10 - K76.0) Overall, Mckayla appears quite well at the present time. She does not have any signs signs nor describe any symptoms of decompensating liver disease. Her recent laboratories are reassuring as well. Given her previous history of chronic hepatitis C and some underlying liver disease, I did recommend followup laboratories as ordered below and a followup abdominal ultrasound given that her last studies were done about one year ago. We did review that these studies should be done every year. I did give her a new prescription to use lactulose as needed for constipation as well. We did review that she'll be due for a followup screening colonoscopy in 2028 given her last exam being negative in 2019 and no known family history of colorectal cancer. If things otherwise remain stable I will plan to see Mckayla one year for a followup office visit. I did advise her to contact me in the interim if she has any problems or questions I can be of assistance with. Mckayla was very comfortable with this plan. Thank you again for allowing me to participate in Mckayla's care. I shall continue to keep you advised of her progress. 01/18/2025 Colon cancer screening (ICD-10 - Z12.11) 01/18/2025 Other Repeat colonoscopy in 2028 Plan Of Treatment Pending Test Test Name Order Date BUN 01/13/2022 CREATININE 01/13/2022 LIVER PROFILE 01/18/2025 LIVER PROFILE 11/25/2021 LIVER PROFILE 01/20/2024 CBC w DIFF 01/18/2025 CBC w DIFF 01/20/2024 PROTHROMBIN TIME (PT, INR) 11/25/2021 ALPHA-FETOPROTEIN,TUMOR MARKER 2 ALPHA-FETOPROTEIN,TUMOR MARKER 3 ALPHA-FETOPROTEIN,TUMOR MARKER 4 ALPHA-FETOPROTEIN,TUMOR MARKER 5 CELIAC PANEL #10 06/18/2022 HEPATITIS C VIRAL LOAD 11/25/2021 HEPATITIS C VIRAL LOAD 01/20/2024 MRI ABD W&WO CONTRAST 01/13/2022 US ABD 11/25/2021 HCV LIVER FIBROSIS, FIBRO TEST 3 HCV LIVER FIBROSIS, FIBRO TEST 4 HCV LIVER FIBROSIS, FIBRO TEST 2 HCV LIVER FIBROSIS, FIBRO TEST 5 Prothrombin Time INR 01/18/2025 Prothrombin Time INR 01/20/2024 US abdomen comp w elastography 4 US abdomen comp w elastography 5 US abdomen comp w elastography 3 Next Appt Details Provider Name:Haris Vines , 01/22/2026 10:10:00 AM, [address] [place] [address], [place] [address], [place], [address], Insurance Providers Payer Name Payer Address Payer Phone Subscriber Number Group Number Insured Name Patient Relationship to Insured Coverage Start Date Coverage End Date [place]ARE OF [place] [address] [place] [place] [address] [phone] [id number] MANSOOR HA Self - patient is the insured [employer] ([place]) [address] [place] [id number] [id number] MANSOOR HA Self - patient is the insured Medical (General) History Medical History History ICD Code Diabetes Hepatitis C Treated with int erferon-unsuccessfully; successful treatment in 2014 with Harvoni. She had a nondetectable hepatitis C viral load in 2021. Asthma/COPD HTN Arthritis Negative Colonoscopies in approx 2008 an d in 04/[address] Maday Dobbs [place],CVA,renal disease SVT 1.3 cm Hepatic hemangioma se en on imaging dating back to a 2012 MRI- unchanged on a 2021 MRI Negative laboratories for celiac disease in June of 2022 Surgical History Surgery Date(Month/Year) Lap band placed in 2007 and removed 2014 Carpal tunnel bilateral 2018 Exploratory laparotomy with removal of l eft Fallopian tube 1983 T& A 1963 Uterine ablation 2001 Right knee replacement 2008 Left knee replacement 2008
[2025-01-18 14:17] LABS: Alanine Aminotransferase 28 U/L (0-31); Albumin Level 4.5 g/dL (3.5-5.0); Alkaline Phosphatase 62 U/L (39-117); Aspartate Amino Transferase 27 U/L (5-31); Total Protein 7.1 g/dL (6.5-8.0)
[2025-01-24 16:28] LABS: FIB-ALT 19 U/L (6-29); FIB-Alpha-2-Macroglobulin 379 mg/dL (106-279); FIB-Apolipoprotein A1 152 mg/dL (101-198); FIB-GGT 11 U/L (3-65); FIB-Haptoglobin 101 mg/dL (43-212); FIB-Total Bilirubin 0.4 mg/dL (0.2-1.2); Liver Fibrosis Score 0.42; Liver Fibrosis Stage F1-F2; Nec Inflam Act Grade A0; Nec Inflam Act Score 0.09
== END 2025-01-18 10:51 | disposition home or self-care (01) ==
LOC: HO.10HDL 10:50
PROVIDERS: Visit Provider Internal Medicine
DX: D18.03 Hemangioma of intra-abdominal structures (principal); K74.00 Hepatic fibrosis, unspecified; Z86.19 Personal history of other infectious and parasitic diseases
CPT/HCPCS: 36415; 80076; 81596; 82105; 85025; 85610

== ENCOUNTER 2025-01-29 14:15 | Emergency (ER) | payer MEDICARE, OTHER, SELFPAY ==
--- OUTSIDE RECORDS SUMMARY | 2024-01-25 06:30 | XMS_ITS ---
Author Organization [facility] Address [address] [place] [address] Care Team Providers Care Outside Parts Sales Name Role Phone Kartik Valdez Primary Care Provider Jasmina Jeffrey Unavailable [phone] Allergies Allergen (clinical drug ingredient) Drug/Non Drug Allergy documented on EMR Reaction Allergy Type Onset Date Status amoxicillin Amoxicillin rash Drug Allergy Act meng Metoprolol Succinate Unknown Drug Allergy Active acetaminophen / oxycodone Percocet Unknown Drug Allergy Active Penicillin rash Drug Allergy Active codeine Codeine itchy Drug Allergy Active morphine Morphine shortness of breath Drug Allergy Active Medications Medication SIG (Take, Route, Frequency, Duration) Notes Start Date End Date Status Ativan 0.5 MG 1 tablet as needed Orally every 6 hrs Not-Taking Clindamycin HCl 300 MG 1 capsule Orally every 6 hrs; Duration: 7 days 12/09/2018 Not-Taking Crestor 20 MG Orally Once a day Not-Taking Mupirocin 2 % 1 application to affected area Externally Daily; Duration: 14 days 12/14/2018 Not-Yao ing Spiriva HandiHaler 18 MCG 1 capsule Inhalation Once a day Not-Taking Clindamycin HCl 300 MG 1 capsule Orally 2 tables prior to procedure; Duration: 5 days 08/29/2021 Active Mupirocin 2 % 1 application Box Tender ally Twice a day; Duration: 5 day(s) 08/29/2021 Active traZODone HCl Active Cephalexin 500 MG 1 capsule Orally 2 tablets prior to procedure; Duration: 5 days 08/29/2021 Active Gabapentin 300 MG TAKE 1 CAPSULE BY [facility] EVERY DAY FOR 90 DAYS; Duration: 90 Active Meclizine HCl 25 MG 1 tablet as needed Orally Once a day PRN Active Sertraline HCl 25 MG 3 tablet Orally Onc e a day Active Incruse Ellipta 62.5 MCG/INH 1 puff Inhalation Once a day Active Lasix 40 MG 1 tablet Orally thre e times a week Active Encounters Encounter Location Date Provider Diagnosis [facility] [place] [address] [place] [address] 01/25/2024 Jasmina Santana Plan Of Treatment No Information Progress Notes * Ivy HAbryceDOB: 7 (69 yo F)Acc No.[id number]:01/25/2024 Progress Note Patient: Humera RAO Provider: Alberto Santana DPM :1955 A ge:68 Y S ex:Female Date:01/25/2024 Address:[address] [place], [place] [address] Pcp:Kartik Valdez Subjective: * Chief Complaints: * * Medical History: A nxiety, Arthritis, Asthma, CAD (Cholesterol), Hepatitis C, High blood pressure, Chronic sinusitis, Measles, Mumps, Chicken pox, Transfusions, Degenerative joint disease. * Medications: T aking Lasix 40 MG Tablet 1 tablet Orally three times a week , Taking Meclizine HCl 25 MG Tablet Chewable 1 tablet as needed Orally Once a day , Notes to Pharmacist: PRN, Taking Sertraline HCl 25 MG Tablet 3 tablet Orally Once a day , Taking Incruse Ellipta 62.5 MCG/INH Aerosol Powder Breath Activated 1 puff Inhalation Once a day , Taking traZODone HCl , Taking Cephalexin 500 MG Capsule 1 capsule Orally 2 tablets prior to procedure , Taking Clindamycin HCl 300 MG Capsule 1 capsule Orally 2 tables prior to procedure , Taking Mupirocin 2 % Ointment 1 application Externally Twice a day , Taking Gabapentin 300 MG Capsule TAKE 1 CAPSULE BY MOUTH EVERY DAY FOR 90 DAYS , Not-Taking/PRN Spiriva HandiHaler 18 MCG Capsule 1 capsule Inhalation Once a day , Not-Taking/PRN Crestor 20 MG Tablet Orally Once a day , Not-Taking/PRN Mupirocin 2 % Ointment 1 application to affected area Externally Daily , Not-Taking/PRN Clindamycin HCl 300 MG Capsule 1 capsule Orally every 6 hrs , Not-Taking/PRN Ativan 0.5 MG Tablet 1 tablet as needed Orally every 6 hrs * Allergies: P enicillin: rash, Morphine: shortness of breath, Codeine: itchy, Amoxicillin: rash, Metoprolol Succinate, Percocet. Objective: * Vitals: Assessment: Plan: * Treatment: * Images: * The named appointment provid er may or may not be the originator of this progress note, and it is not deemed complete until electronically signed by the appointment provider. Sign off status: Pending * Provider: Alberto Santana DPM Date: Generated for Eulalia espino/Tunde/Markel on: 06:34 PM EDT
--- OUTSIDE RECORDS SUMMARY | 2024-09-25 12:50 | XMS_ITS | Continuity of Care Document ---
Author Organization [facility] Address [address] [place] [address] Phone Care Team Providers Care Deputy Commissioner Name Role Phone Delon Ortiz APRN Unavailable Unavailable Allergies, Adverse Reactions, Alerts Substance Reaction Status Criticality PENICILLIN Active No Information Medications Medication Instructions Dosage Effective Dates (start - stop) Status Comments oxybutynin chloride ER 5 mg tablet,extended release 24 hr TAKE ONE TABLET BY MOUTH DAILY - Active prednisone 10 mg tablet take 1 tablet by oral route every day 10 MG - Active cefdinir 300 mg capsule take 1 capsule by oral route every 12 hours 300 MG - Active levothyroxine 137 mcg capsule take 1 capsule by oral route every day 137 MCG - Active albuterol sulfate 2.5 mg/3 mL (0.083 %) solution for nebulization inhale 3 milliliter by nebulization route 3 times every day 2.5 MG - Active albuterol sulfate HFA 90 mcg/actuation aerosol inhaler inhale 2 puff by inhalation route every 4 - 6 hours as needed 180 MCG - Active alprazolam 0.25 mg tablet take 1 tablet by oral route 3 times every day 0.25 MG - Active montelukast 10 mg tablet take 1 tablet by oral route every day in the evening 10 MG - Active meloxicam 7.5 mg tablet take 1 tablet by oral route every day 7.5 MG - Active Incruse Ellipta 62.5 mcg/actuation powder for inhalation inhale 1 puff by inhalation route every day at the same time each day 62.5 MCG - Active Breo Ellipta 100 mcg-25 mcg/dose powder for inhalation inhale 1 puff by inhalation route every day at the same time each day 1.00 puff - Active fluticasone propionate 50 mcg/actuation nasal spray,suspension inhale 1 spray by intranasal route every day in each nostril 50 MCG - Active citalopram 40 mg tablet take 1 tablet by oral route every day 40 MG - Active Advance Directives Directive Yes / No Effective Date File Name No Information Encounters Encounter Description Practice Location Reason(s) For Visit Diagnoses Date Provider [facility], [address] [place] [address], [id number], tel:[phone] [facility] No Information 2024 Angel Jernigan. [address] [place] [address], [id number]. tel:[phone] [facility], [address] [place] [address], [id number], tel:[phone] [facility] No Information 2024 Sandy Hammer. [address] [place] [address], [id number], . tel:[phone] [facility], [address] [place] [address], [id number], tel:[phone] [facility] No Information 2023 Angel Jernigan. [address] [place] [address], [id number]. tel:[phone] [facility], [address] [place] [address], [id number], tel:[phone] [facility] No Information 2023 Angel Jernigan. [address] [place] [address], [id number]. tel:[phone] Family History Family Member Type Diagnosis Age At Onset No Information Payers Payer name Insurance type Covered constitution party ID Authoriza tion(s) No Information Social History Type Description Quantity Date Captured Comments Sex Female Smoking Status No Information Chief Complaint And Reason For Visit No Information History Of Present Illness Encounter Date Complaint History Of Prese nt Illness No Information Instructions Date Instruction Additional Infor mation No Information Assessments Type Assessment Date No Information
--- OUTSIDE RECORDS SUMMARY | 2025-01-26 11:14 | XMS_ITS | Encounter Summary ---
Author Organization [facility] Address [address] [place] [address] Phone Care Team Providers Care Dice Table Person Name Role Phone Merrill Lucero SENIOR FIELD ENGINEER Unavailable Idania Chavira MD Unavailable Kartik Valdez MD Unavailable [phone] Kartik Valdez MD Primary Care Provider Kartik Valdez MD Unavailable [phone] Encounter Details Date Type Department Care Team (Latest Contact Info) Description 01/26/2025 11:14 AM EDT - 01/26/2025 11:59 PM EDT Hospital Encounter [facility] [address] [place] [address] Kartik Valdez MD [address] [facility], [address] [place] [address] [email or web address] Arrived Discharge Disposition: Home or Self Care Social History Tobacco Use Types Packs/Day Years Used Date Smoking Tobacco: Former Cigarettes 1 15 0 04/05/1973 - 04/05/1988 Smokeless Tobacco: Never Tobacco Cessation:Counseling Given: Not Answered Alcohol Use Standard Drinks/Week Comments No 0 (1 standard drink = 0.6 oz pur e alcohol) Child or Family Care Answer Date Record ed Do you have problems with on e of the following making it difficult for you to work, study, or receive health care? No 02/18/2021 Education Answer Date Recorded Are you interested in more education? Not on jose guadalupe e 02/19/2023 Are you concerned about learning? Not on file 02/19/2023 No 02/19/2023 No 02/19/2023 Food Answer Date Recorded Within the past 6 months we worried whether our food would run out before we got money to buy more. Never True 02/18/2021 Within the past 6 months the food we bought just didn't last and we didn't have enough money to get more. Never True Residential Stability Answer Date Recor ded What is your housing situation today? I have kurt conner 02/18/2021 How many times have you move d in the past 12 months? Zero (I did not move) 02/18/2021 Paying for Meds Answer Date Recorded Do you have trouble paying for medicines? No 02/18/2021 Paying Utility Bills Answer Date Record ed Do you have trouble paying your heating or elect ricity bill? No 02/18/2021 Transportation Answer Date Recorded Has the lack of transportati on kept you from medical appointments or from getting medications? No 02/18/2021 Unemployment Answer Date Recorded Are you currently unemployed or working on a part-time or temporary basis, and looking for work? No 02/18/2021 Digital Access Answer Date Recorded No 08/25/2022 No 08/25/2022 Reliable internet access at home? Not on file 08/25/2022 Device with a working camera? Not on file Intimate Partner Violence Answer Date R ecorded Denied Basic Needs Not on file 01/23/2025 In the past 12 months have y ou been in a relationship with a person who hurts, threatens, or tries to control you? No 01/23/2025 Worried food would run out Not on file 01/23 In the past 12 months have y ou been in a relationship with a person who hurts, threatens, or tries to control you? 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 cyclobenzaprine (FLEXERIL) 10 MG tabletIndications:Senthil dy aches Take 0.5 tablets (5 mg total) by mouth daily as needed. 45 tablet 1 10/21/2023 diphenhydrAMINE (BENADRYL) 25 mg capsule Take 25 mg by mouth every 6 (six) hours as needed for itching. docusate sodium (COLACE) 100 MG capsule Take 100 mg by mouth 2 (two) times a day as needed for constipation. gabapentin (NEURONTIN) 300 MG capsuleIndications:N europathy TAKE 1 CAPSULE BY MOUTH NIGHTLY AT BEDTIME. 90 capsule 5 09/12/2024 ipratropium (ATROVENT) 21 mcg (0.03 %) nasal sprayIndications:All ergy, subsequent encounter 2 sprays by Nasal route every 12 (twelve) hours. 30 mL 12 01/28/2024 ipratropium-albutero L (COMBIVENT RESPIMAT) 20-100 mcg/actuation MistIndications:Mode rate persistent asthma without complication Inhale 1 puff into the lungs every 6 (six) hours as needed (For Shortness of breath, cough and/or wheezing). 24 g 3 01/05/2025 lactulose (CONSTULOSE) 20 gram/30 mL SolnIndications:Cons tipation, unspecified constipation type Take 30 mL by mouth 3 (three) times a day as needed. 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 90 tablet 3 12/26/2024 MOUNJARO 7.5 mg/0.5 mL PnIj subcutaneous penIndications:Type 2 diabetes mellitus with diabetic polyneuropathy, without long-term current use of insulin Inject 0.5 mL (7.5 mg total) under the skin once a week. 6 mL 3 10/16/2024 multivitamins capsule Take 1 capsule by mouth daily. polyethylene glycol (MIRALAX) 17 gram packet Take 17 g by mouth daily. predniSONE (DELTASONE) 10 MG tablet 4 pills for 3 days, then 3 pills for 3 days, then 2 pills for 3 days, then 1 pill for 3 days, then stop 40 tablet 6 08/25/2022 senna (SENOKOT) 8.6 mg tablet Take 2 tablets by mouth as needed for constipation. simvastatin (ZOCOR) 20 MG tabletIndications:Mi xed hyperlipidemia TAKE 1 TABLET BY MOUTH EVERY DAY 90 tablet 3 08/01/2024 umeclidinium-vilante roL (ANORO ELLIPTA) 62.5-25 mcg/actuation diskus inhalerIndications:M oderate persistent asthma without complication Inhale 1 puff into the lungs daily. 3 each 3 09/15/2024 zafirlukast (ACCOLATE) 20 MG tabletIndications:Mo derate persistent asthma without complication Take 1 tablet (20 mg total) by mouth 2 (two) times a day. 180 tablet 3 09/11/2024 6 documented as of this encounter Progress Notes * Kartik Valdez MD - 01/26/2025 11:15 AM EDT Results are reviewed, and are normal documented in this encounter Plan of Treatment Upcoming Encounters Date Type Department Care Team (Late st Contact Info) Description 01/31/2025 12:45 PM EDT Office Visit [facility] [address] [place] [address] [place] [address] Kartik Valdez MD [address] [place] [address], [address] [place] [address] 02/20/2025 9:40 AM EST Office Visit [facility] [address] [place] [address] [place] [address] Lennie Preciado CNP [address] [facility], 1st [place] [address] 02/20/2025 11:00 AM EST Office Visit [facility] [address] Floor, [address] [place] [address] Rodolfo Hargrove MD [address] [facility], [address] [place] [address] [email or web address] Divina Walls, TONY [address] [facility], [address] [place] [address] 04/09/2025 11:20 AM EST Office Visit [address] 3rd Floor, [address] [place] [address] Haris Lomax MD, [place] [address] [facility], [address] [place] [address] 06/18/2025 9:45 AM EDT Office Visit [facility] [address] [address] Kartik Valdez MD [address] [facility] [place] [address] documented as of this encounter Procedures Procedure Name Priority Date/Time Associated Diagnosis Comments BI MAMMOGRAM SCREENING WITH TOMOSYNTHESIS WITH CAD (BILATERAL) Routine 01/26/2025 11:29 AM EDT Breast screening documented in this encounter Results * BI MAMMOGRAM SCREENING WITH TOMOSYNTHESIS WITH CAD (BILATERAL) (01/26/2025 11:29 AM EDT) Anatomical Region Laterality Modality Breast Left, Breast Right, Breast Bilateral Bila teral Mammography 01/28/2025 12:3 2 PM EDT Impressions 01/28/2025 12:37 PM EDT No mammographic evidence of malignancy in either breast. Annual screening mammography is recommended. BI-RADS 1 NEGATIVE The patient will be notified of the results and recommendations. Narrative 01/28/2025 12:37 PM EDT BI MAMMOGRAM SCREENING WITH TOMOSYNTHESIS WITH CAD (BILATERAL) Additional patient information: Screening. COMPARISON: Comparison is made with relevant prior imaging. Breast composition: There are scattered areas of fibroglandular density. FINDINGS: No abnormal masses, suspicious calcifications, or other significant findings are identified mammographically in either breast. Procedure Note Everett Marc MD - 01/28/2025 BI MAMMOGRAM SCREENING WITH TOMOSYNTHESIS WITH CAD (BILATERAL) Additional patient information: Screening. COMPARISON: Comparison is made with relevant prior imaging. Breast composition: There are scattered areas of fibroglandular density. FINDINGS: No abnormal masses, suspicious calcifications, or other significantfindings are identified mammographically in either breast. IMPRESSION: No mammographic evidence of malignancy in either breast. Annual screening mammography is recommended. BI-RADS 1 NEGATIVE The patient will be notified of the results and recommendations. Kartik Valdez MD IMG MG EXAMS Final Result documented in this encounter Visit Diagnoses Diagnosis Breast screening Breast screening, unspecified documented in this encounter Additional Health Concerns Assessment Noted Time PHQ-2 Depression Total Score: 0 01/24/20 25 7:18 PM EDT documented as of this encounter Care Teams Dice Table Person Relationship Specialty Start Date End Date Kartik Valdez MD [address] [place] [address], [address] [place] [address] [email or web address] PCP - General Internal Medicine 02/24/17 Merrill Lucero CNP [address] [place] [address], [address] [place] [address] [email or web address] Historical LMR Provider 01/19/17 Idania Chavira MD [address] [place] [address], [address] [place] [address] [email or web address] Historical LMR Provider 01/19/17 Kartik Valdez MD [address] [place] [address], [address] [place] [address] [email or web address] Historical LMR Provider 01/19/17 Kartik Valdez MD [address] [place] [address], [address] [place] [address] [email or web address] Insurance Assigned Provider 07/10/23 documented as of this encounter Additional Source Comments The information contained in this document represents components of the legal health record. It is not the complete legal health record.[facility]
--- NOTE | 2025-01-29 14:22 | ECG_ITS ---
Test Reason : svt? Blood Pressure : */* mmHG Vent. Rate : 85 BPM Atrial Rate : 85 BPM P-R Int : 170 ms QRS Dur : 84 ms QT Int : 354 ms P-R-T Axes : 35 -37 34 degrees QTcB Int : 421 ms Normal sinus rhythm Left axis deviation Abnormal ECG When compared with ECG of 14-Apr-2022 08:47, No significant change was found Referred By: Generic ED Physician Electronically Signed By: AKIL IGLESIAS
[2025-01-29 14:39] VITALS: BP 130/80; PULSE 150; O2SAT 97
[2025-01-29 14:42] VITALS: BP 117/65; PULSE 88; RESP 18; TEMP 36.8; O2SAT 100; BMI 36.4
[2025-01-29 14:42] LABS: MANUAL DIFF FLAG NO
[2025-01-29 14:43] LABS: Hematocrit 43.6 % (37.0-47.0); Hemoglobin 14.6 g/dl (12.0-16.0); Imm Gran Abs Auto 0.01 X10*3/uL (0.00-0.03); Imm Gran Pct Auto 0.2 % (0.0-0.4); Lymphocytes Absolute Auto 2.2 X10*3/uL (1.2-4.9); Mean Corpuscular HGB Conc 33.5 g/dl (31.0-35.0); Mean Corpuscular Hemoglobin 29.6 pg (27.0-33.0); Mean Corpuscular Volume 88.4 fL (80.0-98.0); NRBC Abs Auto 0.000 X10*3/uL (0.0-0.012); NRBC Pct Auto 0.0 /100WBC (0.0-0.2); Platelet Count 200 X10*3/uL (160-400); Red Blood Count 4.93 X10*6/uL (4.20-5.50); White Blood Count 5.6 X10*3/uL (4.8-10.8)
--- NOTE | 2025-01-29 14:53 | ED.ARRPALP ---
HPI - Arrhythmia/Palpitations General Chief Complaint: Arrhythmia/Palpitations Stated Complaint: hr 160,adenosine given,hr82 now per ems Time Seen by Provider: 01/29/25 14:30 Source: patient and EMS Mode of arrival: EMS Limitations: no limitations History of Present Illness ED Provider: HPI narrative: 69-year-old woman with a history of hypotension, history of SVT, presenting with palpitations she states started around 12:00 today, and she has been having palpitations throughout the past week but they have stopped with sounds like Valsalva, this episode was not stopping she called EMS, was administered adenosine and converted to sinus rhythm reportedly she was in SVT 160 beats per minute, patient denied chest pain, pleurisy, states compliant with a home medications, currently chest pain-free feeling anxious. Related Data Previous Rx's ?Medication ?Instructions ?Recorded atenolol 25 mg tablet 25 mg PO DAILY #30 tabs 04/28/21 cyclobenzaprine 5 mg tablet 5 mg PO BEDTIME PRN muscle spasm 04/14/22 #4 tabs ketorolac 10 mg tablet 10 mg PO Q6H PRN pain 5 days #20 04/14/22 tabs Allergies Allergy/AdvReac Type Severity Reaction Status Date / Time ampicillin (AMPICILLIN) Allergy Intermediate HIVES Verified 01/29/25 14:44 codeine (CODEINE) Allergy Intermediate HIVES Verified 01/29/25 14:44 morphine (MORPHINE) Allergy Intermediate HIVES Verified 01/29/25 14:44 lisinopril (LISINOPRIL) Allergy Unknown COUGH Verified 01/29/25 14:44 Codeine Phosphate Allergy Unknown Itching Uncoded 04/28/21 15:05 From LOPRESSOR Allergy Unknown BRADYCARDIA Uncoded 04/28/21 15:05 Review of Systems Constitutional: Constitutional: Reports as per HPI [facility] Past Medical History Medical History Hypertension Social History Social History Alcohol intake: never Patient Tobacco Use Status: Former Tobacco user Smoked in Last 30 Days: No Use of substances other than those prescribed or required for medical reasons: No Advance Directives: No Advance Directives Information Provided: Yes Do you have a plan to hurt others: No Plan Physical Exam Exam: Exam: General: ?Appears of stated age ? ?PERRLA, EOMI, MMM, ? Neck: Supple, no LAD ? ?CV: RRR, no obvious murmurs appreciated ? ?Resp: ?No wheezing rales rhonchi no stridor moving air well ? Abd: ?Bowel sounds are present, no tenderness no rebound no rigidity ? ?MSK: FROM, strength 5/5 all extremities ? Skin: Warm, dry, intact, ? ?Neuro: ?Alert and oriented x3, moving upper and lower extremities symmetrically, no obvious facial asymmetry noted, cranial nerves 2-12 intact Vital Signs: Vital Signs: Last Vital Signs Temp 98.2 F 01/29/25 14:42 Pulse 88 01/29/25 14:42 Resp 18 01/29/25 14:42 BP 117/65 01/29/25 14:42 Pulse Ox 100 01/29/25 14:42 O2 Del Method Room Air 01/29/25 14:42 BMI result Body Mass Index 36.4 Medications Administered Discontinued Medications Generic Name Dose Route Start Last Admin Trade Name Harris PRN Reason Stop Dose Admin Diazepam 2.5 mg 01/29/25 14:53 01/29/25 15:30 Diazepam 10 Mg/2 Ml Cartridge IVPUSH 01/29/25 14:54 Not Given STAT STA Medical Decision Making Medical Decision Making [facility] Narrative: 2:55 PM 01/29/2025 (Dr. Juan Anton): Currently ECG with normal sinus rhythm, no QT prolongation no evidence for WPW you are underlying cardiac ischemia, we will obtain blood work to evaluate for dehydration, electrolyte derangements, has had no history of thyroid issues, she is quite anxious, we will medicate for that, otherwise anticipating discharge if workup is reassuring. Patient states has a PCP appointment coming up in 1 week and next month she has seen a business center attendant Differential Diagnosis Differential Diagnoses: The differential diagnosis associated with the presentation includes (SVT, WPW, electrolyte derangements, ACS) Lab Data [facility] Lab Attestation statement: I reviewed the patient's lab results. 01/29/25 14:37 01/29/25 14:37 Labs: Lab Results 01/29/25 Range/Units 14:37 WBC 5.6 (4.8-10.8) X10*3/uL RBC 4.93 (4.20-5.50) X10*6/uL Hgb 14.6 (12.0-16.0) g/dl Hct 43.6 (37.0-47.0) % MCV 88.4 (80.0-98.0) fL MCH 29.6 (27.0-33.0) pg MCHC 33.5 (31.0-35.0) g/dl RDW 12.1 (11.0-16.0) % Plt Count 200 (160-400) X10*3/uL MPV 9.5 (9.4-12.3) fL Immature Gran % (Auto) 0.2 (0.0-0.4) % Neut % (Auto) 51.2 (45-73) % Lymph % (Auto) 38.4 (20-40) % [place] % (Auto) 6.0 (2-11) % Eos % (Auto) 3.0 (0-4) % Baso % (Auto) 1.2 (0-2) % Lymph # (Auto) 2.2 (1.2-4.9) X10*3/uL [place] # (Auto) 0.3 (0.1-1.2) X10*3/uL Eos # (Auto) 0.2 (0.0-0.4) X10*3/uL Baso # (Auto) 0.1 (0.0-0.2) X10*3/uL Abs Immat Gran (auto) 0.01 (0.00-0.03) X10*3/uL Absolute Neuts (auto) 2.9 (2.0-8.3) x10*3/uL Absolute Nucleated RBC 0.000 (0.0-0.012) X10*3/uL Nucleated RBC % (auto) 0.0 (0.0-0.2) /100WBC Sodium 143 (135-145) mmol/L Potassium 4.5 (3.3-5.1) mmol/L Chloride 107 (96-108) mmol/L Carbon Dioxide 29 (22-29) mmol/L Anion Gap 12 (12-20) BUN 17 H (9-16) mg/dL Creatinine 0.72 (0.5-1.4) mg/dL Estim Creat Clear Calc 84.2 Estimated GFR > 60 Random Glucose 103 (60-115) mg/dL Calcium 8.8 D (8.4-10.2) mg/dL Total Bilirubin 0.3 (0.0-1.0) mg/dL AST 31 (5-31) U/L ALT 25 (0-31) U/L Alkaline Phosphatase 63 (39-117) U/L Troponin I High Sens 3.1 (<3.5-17.0) ng/L Total Protein 7.2 (6.5-8.0) g/dL Albumin 4.4 (3.5-5.0) g/dL Independent Interpretation I performed an independent interpretation of an: EKG (85 beats per minute otherwise normal ECG without dysrhythmia, AV akhil blocks or ST-T changes to suspect underlying ACS, my independent interpretation) Independent Historian Clinical information obtained from an independent historian. History obtained from or confirmed by: EMS Chronic Conditions Patient?s care impacted by: Hypertension Critical Care Time Critical Care Time Total Critical Care Time: 32 Attestation: Time is exclusive of separately billable procedures. Time includes: direct patient care, patient reassessment, coordination of patient care, interpretation of data (laboratory data, pulse oximetry, arterial blood gases and chest xrays), review of patient's medical records, medical consultation and documentation of patient care. Procedures excluded from critical care time: central intravenous line placement and electrocardiography. Discharge Plan Discharge Clinical Impression: Supraventricular tachycardia Patient Disposition: Home, Self-Care Additional Instructions: Evaluated with an episode of supraventricular tachycardia that was terminated by EMS with the adenosine, your workup today has been reassuring, after adenosine your blood pressure has been great, pulse and the rest of your workup has been unremarkable Please see a PCP as I have discussed and business center attendant, any other issues or concerns come back to the ER Prescriptions: No Action atenolol 25 mg tablet 25 mg PO DAILY Qty: 30 0RF ketorolac 10 mg tablet 10 mg PO Q6H PRN (Reason: pain) 5 Days Qty: 20 0RF cyclobenzaprine 5 mg tablet 5 mg PO BEDTIME PRN (Reason: muscle spasm) Qty: 4 0RF Print Language: Tamazight
--- NOTE | 2025-01-29 14:56 | PC.NURSE ---
pt is alert and oriented, skin pwd, respirations even and unlabored, pt reports while bending over in her vegetable garden started to have palpations/dizziness/sob and checked her heart rate is was 160's, pt was given Adenosine 6mg and converted back into normal sinus, pt currently denies all these symptoms, and ns on the monitor and vs stable
[2025-01-29 14:58] LABS: Alanine Aminotransferase 25 U/L (0-31); Albumin Level 4.4 g/dL (3.5-5.0); Alkaline Phosphatase 63 U/L (39-117); Anion Gap 12 (12-20); Aspartate Amino Transferase 31 U/L (5-31); Blood Urea Nitrogen 17 mg/dL (9-16); Calcium 8.8 mg/dL (8.4-10.2); Carbon Dioxide 29 mmol/L (22-29); Chloride 107 mmol/L (96-108); Creatinine Clr Calc Pharmacy 84.2; Estimated Glomerular Filt Rate > 60; Potassium 4.5 mmol/L (3.3-5.1); Sodium 143 mmol/L (135-145); Total Protein 7.2 g/dL (6.5-8.0)
[2025-01-29 15:08] LABS: Troponin-I High Sensitivity 3.1 ng/L (<3.5-17.0)
--- NOTE | 2025-01-29 15:44 | PC.NURSE ---
pt refused the valium at this time, states she is not feeling anxious at this time
[2025-01-29 15:52] VITALS: BP 117/65; PULSE 88; RESP 18; TEMP 36.8; O2SAT 100
--- OUTSIDE RECORDS SUMMARY | 2025-01-29 18:34 | XMS_ITS | Encounter Summary ---
Author Organization [facility] Address [address] [place] [address] [place] [address] Phone Care Team Providers Care Elder Assistant Name Role Phone Merrill Lucero MECHANICAL ENGINEERING ADVISOR Unavailable Gabriele Cantu MD Unavailable [phone] Idania Chavira MD Unavailable Kartik Valdez MD Unavailable [phone] Kartik Valdez MD Primary Care Provider Kartik Valdez MD Unavailable [phone] Encounter Details Date Type Department Care Team (Late Contact Info) Description 12/22/2019 Procedure Pass [facility], [address] [address] Social History Tobacco Use Types Packs/Day Years Used Date Smoking Tobacco: Former Cigarettes Q uit: 1988 Smokeless Tobacco: Never Alcohol Use Standard Drinks/Week Comments No 0 (1 standard drink = 0.6 oz pur e alcohol) Comments No Sex and Gender Information Value Date Recorded Sex Assigned at Not on file Legal Sex Female 9:53 PM EDT Gender Identity Not on file Sexual Orientation Not on file 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 Not on file Not on file documented as of this encounter Plan of Treatment Upcoming Encounters Date Type Department Care Team (Late Contact Info) Description 01/31/2025 12:45 PM EDT Office Visit [facility] [address] [place] [address] [place] [address] Kartik Valdez MD [address] [place] [address], [address] [place] [address] 02/20/2025 9:40 AM EST Office Visit [facility] [address] [place] [address] Lennie Preciado, [place] [address] [place] [address], 1st [place] [address] 02/20/2025 11:00 AM EST Office Visit [facility] [address] [place] [address] [address] [facility], [address] [place] [address] Rodolfo Hargrove MD [address] [place] [address], [address] [address] [email or web address] Divina Walls, TONY [address] [place] [address], [address] [place] [address] 04/09/2025 11:20 AM EST Office Visit [facility] [address] [facility], [address] [place] [address] Haris Lomax MD, MS [address] [place] [address], [address] [address] 06/18/2025 9:45 AM EDT Office Visit [facility] [address] [place] [address] [place] [address] Kartik Valdez MD [address] [place] [address], [address] [place] [address] documented as of this encounter Visit Diagnoses Not on filedocumented in this encounter Additional Health Concerns Infection Onset Date Last Indicated Resolved Time CoV-Risk 10/21/2020 10/22/2020 10/31/2020 1:44 AM EDT CoV-Risk 02/14/2021 02/14/2021 02/24/2021 1:22 AM EST Assessment Noted Time PHQ-2 Depression Total Score: 1 01/13/20 19 10:02 AM EDT documented as of this encounter Care Teams Elder Assistant Relationship Specialty Start Date End Date Kartik Valdez MD [address] [place] [address], [address] [place] [address] PCP - General Internal Medicine 02/24/17 Merrill Lucero, [place] [address] [place] [address], [address] [place] [address] Historical LMR Provider 01/19/17 Gabriele Cantu MD [address] [place] [address] [email or web address] Historical LMR Provider 01/19/17 04/12/21 Idania Chavira MD [address] [place] [address], [address] [place] [address] Historical LMR Provider 01/19/17 Kartik Valdez MD [address] [place] [address], [address] [place] [address] Historical LMR Provider 01/19/17 Kartik Valdez MD [address] [place] [address], [address] [place] [address] Insurance Assigned Provider 07/10/23 documented as of this encounter Additional Source Comments The information contained in this document represents components of the legal health record. It is not the complete legal health record.[facility]
--- OUTSIDE RECORDS SUMMARY | 2025-01-29 18:34 | XMS_ITS | Encounter Summary ---
Author Organization [facility] Address [address] [facility] [address] [place] [address] Phone Care Team Providers Care Fisher Hand Line Name Role Phone Merrill Lucero [place] Unavailable Gabriele Cantu MD Unavailable [phone] Idania Chavira MD Unavailable Kartik Valdez MD Unavailable [phone] Kartik Valdez MD Primary Care Provider [phone] Kartik Valdez MD Unavailable [phone] Encounter Details Date Type Department Care Team (Late st Contact Info) Description 02/10/2021 Ancillary Orders [facility] Medicine [address] [place] [address] Kartik Valdez MD 22 [facility], [address] [place] [address] [email or web address] Breast screening Social History Tobacco Use Types Packs/Day Years [...] Description 01/31/2025 12:45 PM EDT Office Visit [address] [place] [address] Kartik Valdez MD [address] [place] [address], [address] [place] [address] 02/20/2025 9:40 AM EST Office Visit [facility] [address] [place] [address] Lennie Preciado, [place] [address] [place] [address], 1st [place] [address] 02/20/2025 11:00 AM EST Office Visit [facility] [address] [place] [address] 3rd Floor, [address] [place] [address] Rodolfo Hargrove MD [address] [place] [address], [address] [address] [email or web address] Divina Walls, DNP [address] [place] [address], [address] [address] 04/09/2025 11:20 AM EST Office Visit [facility] [address] [place] [address] 3rd Floor, [address] [place] [address] Haris Lomax MD, MS [address] [place] [address], [address] [address] 06/18/2025 9:45 AM EDT Office Visit [address] [place] [address] Kartik Valdez MD [address] [place] [address], [address] [place] [address] documented as of this encounter Results * BI MAMMOGRAM SCREENING WITH TOMOSYNTHESIS WITH CAD (BILATERAL) (05/06/2021 2:26 PM EST) Anatomical Region Laterality Modality Breast Left, Breast Right, Breast Bilateral Bila teral Mammography 05/06/2021 4:15 PM EST Impressions 05/06/2021 4:18 PM EST No findings suspicious for malignancy are identified. In the absence of a worrisome palpable abnormality, annual screening mammography is recommended. BI-RADS CATEGORY: 1 - Negative. DENSITY: There are scattered fibroglandular densities. Narrative 05/06/2021 4:18 PM EST COMPARISON: 06/19/2014 through 03/05/2020 Bilateral 3-D tomosynthesis with 2-D reconstructions in the CC and MLO projection. Computer-aided detection system was utilized. No new mass, asymmetry, architectural distortion or suspicious calcifications have become apparent on either side. Procedure Note Stephan Palafox MD - 05/06/2021 COMPARISON: 06/19/2014 through 03/05/2020 Bilateral 3-D tomosynthesis with 2-D reconstructions in the CC and MLOprojection. Computer-aided detection system was utilized. No new mass, asymmetry, architectural distortion or suspiciouscalcifications have become apparent on either side. IMPRESSION: No findings suspicious for malignancy are identified. In the absence of aworrisome palpable abnormality, annual screening mammography isrecommended. BI-RADS CATEGORY: 1 - Negative. DENSITY: There are scattered fibroglandular densities. Kartik Valdez MD IMG MG EXAMS Final Result documented in this encounter Visit Diagnoses Diagnosis Breast screening Breast screening, unspecified Breast screening Breast screening, unspecified documented in this encounter Additional Health Concerns Infection Onset Date Last Indicated Resolved Time CoV-Risk 02/14/2021 02/14/2021 02/24/2021 1:22 AM EST Assessment Noted Time PHQ-2 Depression Total Score: 1 01/13/20 19 10:02 AM EDT documented as of this encounter Care Teams Fisher Hand Line Relationship Specialty Start Date End Date Kartik Valdez MD [address] [place] [address], [address] [place] [address] PCP - General Internal Medicine 02/24/17 Merrill Lucero, [place] [address] [place] [address], [address] [place] [address] Historical LMR Provider 01/19/17 Gabriele Cantu MD [address] [place] [address] [email or web address] Historical LMR Provider 01/19/17 04/12/21 Idania Chavira MD [address] [place] [address], [address] [place] [address] Historical LMR Provider 01/19/17 Kartik Valdez MD [address] [place] [address], [address] [place] [address] Historical LMR Provider 01/19/17 Kartik Valdez MD [address] [place] [address], [address] [place] [address] Insurance Assigned Provider 07/10/23 documented as of this encounter Additional Source Comments The information contained in this document represents components of the legal health record. It is not the complete legal health record.[facility]
--- OUTSIDE RECORDS SUMMARY | 2025-01-29 18:34 | XMS_ITS | Encounter Summary ---
Author Organization [facility] Address [address] [place] [address] [place] [address] Phone Care Team Providers Care Strategic Marketing Manager Name Role Phone Merrill Lucero DIRECTOR OF STRATEGIC ALLIANCES Unavailable Gabriele Cantu MD Unavailable [phone] Idania Chavira MD Unavailable Kartik Valdez MD Unavailable [phone] Kartik Valdez MD Primary Care Provider Kartik Valdez MD Unavailable [phone] Encounter Details Date Type Department Care Team (Late Contact Info) Description 02/09/2018 Prep for Surgery [facility] Orthopedics & Sports Medicine [address] [place] [address] Monique Steward MD [address] [place] [address] Orthopedics & Sports Medicine, [facility] [place], [place] [id number] [email or web address] Social History Tobacco Use Types Packs/Day Years Used Date Smoking Tobacco: Former Cigarettes Q uit: 1988 Smokeless Tobacco: Never Comments No Sex and Gender Information Value Date Recorded Sex Assigned at Not on file Legal Sex Female 9:53 PM EDT Gender Identity Not on file Sexual Orientation Not on file documented as of this encounter Plan of Treatment Upcoming Encounters Date Type Department Care Team (Late Contact Info) Description 01/31/2025 12:45 PM EDT Office Visit [address] [place] [address] Kartik Valdez MD [address] [place] [address], [address] [place] [address] 02/20/2025 9:40 AM EST Office Visit [facility] [address] [place] [address] [place] [address] Lennie Preciado, [place] [address] [place] [address], 1st [place] [address] 02/20/2025 11:00 AM EST Office Visit [facility] [address] [place] [address] 3rd [facility], [address] [place] [address] Rodolfo Hargrove MD [address] [place] [address], [address] [address] [email or web address] Divina Walls, TONY [address] [place] [address], [address] [place] [address] 04/09/2025 11:20 AM EST Office Visit [facility] [address] 3rd [facility], [address] [place] [address] Haris Lomax MD, MS [address] [place] [address], [address] [address] 06/18/2025 9:45 AM EDT Office Visit [address] [place] [address] Kartik Valdez MD [address] [place] [address], [address] [place] [address] documented as of this encounter Visit Diagnoses Not on filedocumented in this encounter Additional Health Concerns Infection Onset Date Last Indicated Resolved Time CoV-Risk 10/21/2020 10/22/2020 10/31/2020 1:44 AM EDT CoV-Risk 02/14/2021 02/14/2021 02/24/2021 1:22 AM EST documented as of this encounter Care Teams Strategic Marketing Manager Relationship Specialty Start Date End Date Kartik Valdez MD [address] [place] [address], [address] [place] [address] PCP - General Internal Medicine 02/24/17 Merrill Lucero CNP [address] [place] [address], [address] [place] [address] Historical LMR Provider 01/19/17 Gabriele Cantu MD [address] [place] [address] [email or web address] Historical LMR Provider 01/19/17 04/12/21 Idania Chavira MD [address] [place] [address], [facility] [address] [place] [address] Historical LMR Provider 01/19/17 Kartik Valdez MD [address] [place] [address], [address] [place] [address] Historical LMR Provider 01/19/17 Kartik Valdez MD [address] [place] [address], [address] [place] [address] [email or web address] Insurance Assigned Provider 4/6/24 documented as of this encounter Additional Source Comments The information contained in this document represents components of the legal health record. It is not the complete legal health record.[facility]
--- OUTSIDE RECORDS SUMMARY | 2025-01-29 18:34 | XMS_ITS | Encounter Summary ---
Author Organization [facility] Address [address] [place] [address] [place] [address] Phone Care Team Providers Care Tool Crib Lead Name Role Phone Merrill Lucero REHABILITATION MEDICINE PHYSICIAN Unavailable [phone] Gabriele Cantu MD Unavailable [phone] dIania Chavira MD Unavailable Kartik Valdez MD Unavailable [phone] Kartik Valdez MD Primary Care Provider Kartik Valdez MD Unavailable [phone] Encounter Details Date Type Department Care Team (Latest Contact Info) Description 11/04/2017 Transcribe Orders [facility] [address] [place] [address] Jace Reardon MD [address] [place] [address], [address] [place], [place] [id number] [email or web address] Neuropathy (Primary Dx); Numbness Social History Tobacco Use Types Packs/Day Years [...] Description 01/31/2025 12:45 PM EDT Office Visit [facility] [address] [place] [address] Kartik Valdez MD [address] [place] [address], [address] [place] [address] 02/20/2025 9:40 AM EST Office Visit [facility] [address] [place] [address] [place] [address] Lennie Preciado, [place] [address] [place] [address], 1st [place] [address] 02/20/2025 11:00 AM EST Office Visit [facility] [address] [place] [address] 3rd [facility], [address] [place] [address] Rodolfo Hargrove MD [address] [place] [address], [address] [place] [address] [email or web address] Divina Walls, TONY [address] [place] [address], [address] [place] [address] 04/09/2025 11:20 AM EST Office Visit [facility] [address] 3rd [facility], [address] [place] [address] Haris Lomax MD, MS [address] [place] [address], [address] [place] [address] 06/18/2025 9:45 AM EDT Office Visit [address] [place] [address] Kartik Valdez MD [address] [place] [address], [address] [place] [address] documented as of this encounter Results * (ABNORMAL) Vitamin B12 (11/04/2017 10:40 AM EDT) VITAMIN B12 1,413(H) 232 - 1,245 pg/mL [facility] Blood 11/04/2017 10:4 0 AM EDT 11/04/2017 10:42 AM EDT us Jace Reardon MD LAB BLOOD ORDERABLES Final R esult [facility] [address] [place] [address] * Ceruloplasmin (11/04/2017 10:40 AM EDT) CERULOPLASMIN,S 32.1 20.0 - 51.0 mg/dL [facility] DPT OF LAB MED AND PAT+ Blood 11/04/2017 10:4 0 AM EDT 11/04/2017 10:41 AM EDT us Jace Reardon MD LAB BLOOD ORDERABLES Final R esult [facility] DPT OF LAB MED AND PAT+ [address] [place] [address] * (ABNORMAL) Serum protein electrophoresis W/O Immunoglobulins and Immunofixation (11/04/2017 10:40 AM EDT) TOTAL PROTEIN 7.9 6.3 - 7.9 g/dL [facility] DPT OF LAB MED AND PAT+ ALBUMIN 3.9 3.4 - 4.7 g/dL [facility] DPT OF LAB MED AND PAT+ ALPHA-1 GLOBULIN 0.3 0.1 - 0.3 g/dL [facility] DPT OF LAB MED AND PAT+ ALPHA-2 GLOBULIN 1.0 0.6 - 1.0 g/dL [facility] DPT OF LAB MED AND PAT+ BETA-GLOBULIN 1.3(H) 0.7 - 1.2 g/dL [facility] DPT OF LAB MED AND PAT+ GAMMA-GLOBULIN 1.5 0.6 - 1.6 g/dL [facility] DPT OF LAB MED AND PAT+ A/G RATIO 1.00 [facility] D[facility] MED AND PAT+ M SPIKE Test component not applicable or not reported. not reported [facility] DPT OF LAB MED AND PAT+ M SPIKE Test component not applicable or not reported. not reported [facility] DPT OF LAB MED AND PAT+ IMPRESSION SEE NOTE [facility] DPT OF LAB MED AND PAT+ Comment: (NOTE) No apparent monoclonal protein on serum electrophoresis. Blood 11/04/2017 10:4 0 AM EDT 11/04/2017 10:41 AM EDT us Jace Reardon MD LAB BLOOD ORDERABLES Final R esult Performing Organization Address City/[facility]/ZIP Co de Phone Number [facility] DPT OF LAB MED AND PAT+ [address] [place] [address] * Folate (11/04/2017 10:40 AM EDT) FOLIC ACID 14.1 4.2 - 19.9 ng/mL [facility] Blood 11/04/2017 10:4 0 AM EDT 11/04/2017 10:42 AM EDT us Jace Reardon MD LAB BLOOD ORDERABLES Final R esult Performing Organization Address [facility] Co de Phone Number [address] [address] * (ABNORMAL) Antinuclear antibody (SO) (11/04/2017 10:40 AM EDT) SO SCREEN ON HEP 2 Positive(A ) Negative [facility] Comment:An SO Titer has bee n reflexed. The results will follow. Blood 11/04/2017 10:4 0 AM EDT 11/04/2017 10:42 AM EDT Jace Reardon MD LAB BLOOD ORDERABLES Final R esult Performing Organization Address [facility] Co de Phone Number [address] [address] documented in this encounter Visit Diagnoses Diagnosis Neuropathy- Primary Mononeuritis of unspecified site Numbness Disturbance of skin sensation documented in this encounter Additional Health Concerns Infection Onset Date Last Indicated Resolved Time CoV-Risk 10/21/2020 10/22/2020 10/31/2020 1:44 AM EDT CoV-Risk 02/14/2021 02/14/2021 02/24/2021 1:22 AM EST documented as of this encounter Care Teams Tool Crib Lead Relationship Specialty Start Date End Date Kartik Valdez MD [address] [place] [address], [address] [place] [address] PCP - General Internal Medicine 02/24/17 Merrill Lucero, [place] [address] [place] [address], [address] [place] [address] Historical LMR Provider 01/19/17 Gabriele Cantu MD [address] [place] [address] [email or web address] Historical LMR Provider 01/19/17 04/12/21 Idania Chavira MD [address] [place] [address], [address] [place] [address] Historical LMR Provider 01/19/17 Kartik Valdez MD [address] [place] [address], [address] [place] [address] Historical LMR Provider 01/19/17 Karitk Valdez MD [address] [place] [address], [address] [place] [address] Insurance Assigned Provider 07/10/23 documented as of this encounter Additional Source Comments The information contained in this document represents components of the legal health record. It is not the complete legal health record.[facility]
--- OUTSIDE RECORDS SUMMARY | 2025-01-29 18:34 | XMS_ITS | Encounter Summary ---
Author Organization [facility] Address [address] [place] [address] [place] [address] Phone Care Team Providers Care Manager Radiation Name Role Phone Merrill Lucero SOLUTION DESIGNER Unavailable Gabriele Cantu MD Unavailable [phone] Idania Chavira MD Unavailable Kartik Valdez MD Unavailable [phone] Kartik Valdez MD Primary Care Provider [phone] Kartik Valdez MD Unavailable [phone] Encounter Details Date Type Department Care Team (Late Contact Info) Description 03/09/2018 Procedure Pass OR Admitting Dept - Virtual Department [address] [place] [address] Social History Tobacco Use Types Packs/Day Years [...] 01/31/2025 12:45 PM EDT Office Visit [facility] [address] [place] [address] Kartik Valdez MD [address] [place] [address], [address] [place] [address] 02/20/2025 9:40 AM EST Office Visit [facility] [address] [place] [address] Lennie Preciado, [place] [address] [facility], 1st [place] [address] 02/20/2025 11:00 AM EST Office Visit [facility] [address] [place] [address] 3rd Floor, [address] [place] [address] Rodolfo Hargrove MD [address] [place] [address], [address] [address] [email or web address] Divina Walls, TONY [address] [place] [address], [address] [place] [address] 04/09/2025 11:20 AM EST Office Visit [facility] [address] 3rd Floor, [address] [place] [address] Haris Lomax MD, MS [address] [place] [address], [address] [place] [address] 06/18/2025 9:45 AM EDT Office Visit [facility] [address] [place] [address] Kartik Valdez MD [address] [place] [address], [address] [place] [address] documented as of this encounter Visit Diagnoses Not on filedocumented in this encounter Additional Health Concerns Infection Onset Date Last Indicated Resolved Time CoV-Risk 10/21/2020 10/22/2020 10/31/2020 1:44 AM EDT CoV-Risk 02/14/2021 02/14/2021 02/24/2021 1:22 AM EST documented as of this encounter Care Teams Manager Radiation Relationship Specialty Start Date End Date Kartik Valdez MD [address] [place] [address], [address] [place] [address] PCP - General Internal Medicine 02/24/17 Merrill Lucero, [place] [address] [place] [address], [address] [place] [address] Historical LMR Provider 01/19/17 Gabriele Cantu MD [address] [place] [address] [email or web address] Historical LMR Provider 01/19/17 04/12/21 Idania Chavira MD [address] [place] [address], [address] [place] [address] Historical LMR Provider 01/19/17 Kartik Valdez MD [address] [place] [address], [address] [place] [address] Historical LMR Provider 01/19/17 Kartik Valdze MD [address] [place] [address], [address] [place] [address] Insurance Assigned Provider 07/10/23 documented as of this encounter Additional Source Comments The information contained in this document represents components of the legal health record. It is not the complete legal health record.[facility]
--- OUTSIDE RECORDS SUMMARY | 2025-01-29 18:34 | XMS_ITS | Encounter Summary ---
Author Organization [facility] Address [address] [place] [address] Phone Care Team Providers Care Windows Admin Name Role Phone Merrill Lucero LIMO DRIVER Unavailable Idania Chavira MD Unavailable Kartik Valdez MD Unavailable [phone] Kartik Valdez MD Primary Care Provider [phone] Kartik Valdez MD Unavailable [phone] Encounter Details Date Type Department Care Team (Late st Contact Info) Description 05/13/2022 Procedure Pass [address] [address] Social History Tobacco Use Types Packs/Day Years Used Date Smoking Tobacco: Former Cigarettes 1 15 0 04/05/1973 - 04/05/1988 Smokeless Tobacco: Never Alcohol Use Standard Drinks/Week Comments No 0 (1 standard drink = 0.6 oz pur e alcohol) Child or Family Care Answer Date Record ed Do you have problems with on e of the following making it difficult for you to work, study, or receive health care? No 02/18/2021 Education Answer Date Recorded Are you interested in help w ith more adult education (for example, completing high school, GED, job training, learning the Polish language, technical skills, or developing parenting skills)? No 02/18/2021 Food Answer Date Recorded Within the past [...] basis, and looking for work? No 02/18/2021 Comments No Sex and Gender Information Value [...] Description 01/31/2025 12:45 PM EDT Office Visit [facility] [address] [place] [address] Kartik Valdez MD [address] [place] [address], [address] [place] [address] 02/20/2025 9:40 AM EST Office Visit [facility] [address] [place] [address] Lennie Preciado CNP [address] [place] [address], 1st [place] [address] 02/20/2025 11:00 AM EST Office Visit [facility] [address] [place] [address] 3rd Floor, [address] [place] [address] Rodolfo Hargrove MD 22 [facility], [address] [place] [address] [email or web address] Divina Walls, TONY [address] [place] [address], [address] [address] 04/09/2025 11:20 AM EST Office Visit [facility] [address] [place] [address] 3rd Floor, [address] [place] [address] Haris Lomax MD, MS [address] [place] [address], [address] [address] 06/18/2025 9:45 AM EDT Office Visit [facility] Medicine [address] [place] [address] Kartik Valdez MD [address] [place] [address], [address] [place] [address] documented as of this encounter Visit Diagnoses Not on filedocumented in this encounter Additional Health Concerns Assessment Noted Time PHQ-2 Depression Total Score: 0 02/19/20 21 11:40 AM EST documented as of this encounter Care Teams Windows Admin Relationship Specialty Start Date End Date Kartik Valdez MD [address] [place] [address], [address] [place] [address] PCP - General Internal Medicine 02/24/17 Merrill Lucero, LIMO DRIVER [address] [place] [address], [address] [place] [address] Historical LMR Provider 01/19/17 Idania Chavira MD [address] [place] [address], [address] [place] [address] [email or web address] Historical LMR Provider 01/19/17 Kartik Valdez MD [address] [place] [address], [address] [place] [address] Historical LMR Provider 01/19/17 Kartik Valdez MD [address] [place] [address], [address] [place] [address] [email or web address] Insurance Assigned Provider 07/10/23 documented as of this encounter Additional Source Comments The information contained in this document represents components of the legal health record. It is not the complete legal health record.[facility]
--- OUTSIDE RECORDS SUMMARY | 2025-01-29 18:34 | XMS_ITS | Encounter Summary ---
Author Organization [facility] Address [facility] [address] [place] [address] Phone Care Team Providers Care Recreational Facilities Motel Manager Name Role Phone Merrill Lucero TREATING PLANT PUMPER Unavailable Idania Chavira MD Unavailable Kartik Valdez MD Unavailable [phone] Kartik Valdez MD Primary Care Provider [phone] Kartik Valdez MD Unavailable [phone] Encounter Details Date Type Department Care Team (Late st Contact Info) Description 02/16/2022 Prep for Surgery [facility] & Sports Medicine [address] [place] [address] Monique Steward MD [address] [place] [address] Orthopedics & Sports Medicine, [facility] [place] [address] Social History Tobacco Use Types Packs/Day Years [...] high school, GED, job training, learning the Macedonian language, technical skills, or developing parenting skills)? [...] your housing situation today? I have kurt sing 02/18/2021 How many times have you move [...] Description 01/31/2025 12:45 PM EDT Office Visit [facility] [address] [address] [place] [address] Kartik Valdez MD [address] [place] [address], [address] [place] [address] 02/20/2025 9:40 AM EST Office Visit [facility] [address] [address] [place] [address] Lennie Preciado CNP 22 [facility], 1st [place] [address] 02/20/2025 11:00 AM EST Office Visit [facility] [address] [place] [address] Dr 3rd Floor, [address] [place] [address] Rodolfo Hargrove MD [address] [place] [address], [address] [place] [address] [email or web address] [email or web address] [address] [place] [address], [address] [place] [address] 04/09/2025 11:20 AM EST Office Visit [facility] [address] 3rd Floor, [address] [place] [address] Haris Lomax MD, [place] [address] [place] [address], [address] [address] 06/18/2025 9:45 AM EDT Office Visit [facility] [address] [address] Kartik Valdez MD [address] [place] [address], [address] [place] [address] documented as of this encounter Visit Diagnoses Not on filedocumented in this encounter Additional Health Concerns Assessment Noted Time PHQ-2 Depression Total Score: 0 02/19/20 21 11:40 AM EST documented as of this encounter Care Teams Recreational Facilities Motel Manager Relationship Specialty Start Date End Date Kartik Valdez MD [address] [place] [address], [address] [place] [address] PCP - General Internal Medicine 02/24/17 Merrill Lucero, TREATING PLANT PUMPER [address] [place] [address], [address] [place] [address] Historical LMR Provider 01/19/17 Idania Chavira MD [address] [place] [address], [address] [place] [address] Historical LMR Provider 01/19/17 Kartik Valdez MD [address] [place] [address], [address] [place] [address] Historical LMR Provider 01/19/17 Kartik Valdez MD [address] [place] [address], [address] [place] [address] Insurance Assigned Provider 07/10/23 documented as of this encounter Additional Source Comments The information contained in this document represents components of the legal health record. It is not the complete legal health record.[facility]
--- OUTSIDE RECORDS SUMMARY | 2025-01-29 18:34 | XMS_ITS | Encounter Summary ---
Author Organization [facility] Address [address] [place] [address] Phone Care Team Providers Care Home Office Representative Name Role Phone Merrill Lucero Meenu TECHNOLOGY MANAGER Unavailable Idania Chavira MD Unavailable Kartik Valdez MD Unavailable [phone] Kartik Valdez MD Primary Care Provider [phone] Kartik Valdez MD Unavailable [phone] Encounter Details Date Type Department Care Team (Late st Contact Info) Description 07/29/2021 Procedure Pass [facility] [address] [place] [address] Social History Tobacco Use Types Packs/Day Years [...] high school, GED, job training, learning the Taiwanese language, technical skills, or developing parenting skills)? [...] Description 01/31/2025 12:45 PM EDT Office Visit [facility] [address] [place] [address] Kartik Valdez MD [address] [place] [address], [address] [place] [address] 02/20/2025 9:40 AM EST Office Visit [facility] [address] [place] [address] Lennie Preciado CNP [address] [place] [address], 1st [place] [address] 02/20/2025 11:00 AM EST Office Visit [facility] [address] Floor, [address] [place] [address] Rodolfo Hargrove MD 22 [facility], [address] [place] [address] [email or web address] [email or web address] [email or web address], DNP [address] [place] [address], [address] [place] [address] 04/09/2025 11:20 AM EST Office Visit [facility] [address] [place] [address] Dr 3rd Floor, [address] [place] [address] Haris Lomax MD, MS 22 [facility], [address] [address] 06/18/2025 9:45 AM EDT Office Visit [address] [address] Kartik Valdez MD [address] [place] [address], [address] [place] [address] documented as of this encounter Visit Diagnoses Not on filedocumented in this encounter Additional Health Concerns Assessment Noted Time PHQ-2 Depression Total Score: 0 07/16/19 23 5:07 PM EDT documented as of this encounter Care Teams Home Office Representative Relationship Specialty Start Date End Date Kartik Valdez MD [address] [place] [address], [address] [place] [address] PCP - General Internal Medicine 02/24/17 Merrill Lucero, TECHNOLOGY MANAGER [address] [place] [address], [address] [place] [address] Historical LMR Provider 01/19/17 Idania Chavira MD [address] [place] [address], [address] [place] [address] [email or web address] Historical LMR Provider 01/19/17 Kartik Valdez MD [address] [place] [address], [address] [place] [address] Historical LMR Provider 01/19/17 Kartik Valdez MD [address] [place] [address], [address] [place] [address] [email or web address] Insurance Assigned Provider 07/10/23 documented as of this encounter Additional Source Comments The information contained in this document represents components of the legal health record. It is not the complete legal health record.[facility]
--- OUTSIDE RECORDS SUMMARY | 2025-01-29 18:34 | XMS_ITS | Encounter Summary ---
Author Organization [facility] Address [address] [facility] [address] [place] [address] Phone Care Team Providers Care Clamshell Operator Name Role Phone Merrill Lucero FIRER DIESEL LOCOMOTIVE Unavailable Gabriele Cantu MD Unavailable [phone] Idania Chavira MD Unavailable Kartik Valdez MD Unavailable [phone] Kartik Valdez MD Primary Care Provider Kartik Valdez MD Unavailable [phone] Encounter Details Date Type Department Care Team (Late st Contact Info) Description 10/05/[address] [address] Social History Tobacco Use Types Packs/Day Years [...] Description 01/31/2025 12:45 PM EDT Office Visit [facility] [address] [place] [address] [place] [address] Kartik Valdez MD 22 [facility], [address] [place] [address] 02/20/2025 9:40 AM EST Office Visit [facility] [address] [place] [address] Lennie Preciado CNP 22 [facility], 1st [place] [address] 02/20/2025 11:00 AM EST Office Visit [facility] [address] [place] [address] 3rd Floor, [address] [place] [address] Rodolfo Hargrove MD [address] [place] [address], [address] [place] [address] [email or web address] Divina Walls DNP [address] [place] [address], [address] [address] 04/09/2025 11:20 AM EST Office Visit [facility] [address] 3rd Floor, [address] [place] [address] Haris Lomax MD, MS [address] [place] [address], [address] [place] [address] 06/18/2025 9:45 AM EDT Office Visit [facility] [address] [place] [address] Kartik Valdez MD [address] [place] [address], [address] [place] [address] documented as of this encounter Visit Diagnoses Not on filedocumented in this encounter Additional Health Concerns Infection Onset Date Last Indicated Resolved Time CoV-Risk 10/21/2020 10/22/2020 10/31/2020 1:44 AM EDT CoV-Risk 02/14/2021 02/14/2021 02/24/2021 1:22 AM EST documented as of this encounter Care Teams Clamshell Operator Relationship Specialty Start Date End Date Kartik Valdez MD [address] [place] [address], [address] [place] [address] PCP - General Internal Medicine 02/24/17 Merrill Lucero, [place] [address] [place] [address], [address] [place] [address] Historical LMR Provider 01/19/17 Gabriele Cantu MD [address] [place] [address] [email or web address] Historical LMR Provider 01/19/17 04/12/21 dIania Chavira MD [address] [place] [address], [address] [place] [address] Historical LMR Provider 01/19/17 Kartik Valdez MD [address] [place] [address], [address] [place] [address] Historical LMR Provider 01/19/17 Kartik Valdez MD [address] [place] [address], [address] [place] [address] Insurance Assigned Provider 07/10/23 documented as of this encounter Additional Source Comments The information contained in this document represents components of the legal health record. It is not the complete legal health record.[facility]
--- OUTSIDE RECORDS SUMMARY | 2025-01-29 18:34 | XMS_ITS | Encounter Summary ---
Author Organization [facility] Address [address] [place] [address] Phone Care Team Providers Care Demand Planning Analyst Name Role Phone Merrill Lucero Meenu ESL TEACHER Unavailable Idania Chavira MD Unavailable Kartik Valdez MD Unavailable [phone] Kartik Valdez MD Primary Care Provider [phone] Kartik Valdez MD Unavailable [phone] Encounter Details Date Type Department Care Team (Late st Contact Info) Description 03/04/2022 Procedure Pass [place] Admitting Dept - Virtual Department [address] [place] [address] Social History Tobacco Use Types Packs/Day Years [...] high school, GED, job training, learning the Palestinian language, technical skills, or developing parenting skills)? [...] Description 01/31/2025 12:45 PM EDT Office Visit [facility] Medicine [address] [place] [address] [place] [address] Kartik Valdez MD [address] [place] [address], [address] [place] [address] 02/20/2025 9:40 AM EST Office Visit [facility] [address] [place] [address] [place] [address] Lennie Preciado CNP 22 [facility], 1st [place] [address] 02/20/2025 11:00 AM EST Office Visit [facility] [address] [place] [address] 3rd Floor, [address] [place] [address] Rodolfo Hargorve MD [address] [place] [address], [address] [place] [address] [email or web address] Divina [email or web address], DNP [address] [place] [address], [address] [place] [address] 04/09/2025 11:20 AM EST Office Visit [facility] [address] [place] [address] Dr 3rd Floor, [address] [place] [address] Haris Lomax MD, MS 22 [facility], [address] [address] 06/18/2025 9:45 AM EDT Office Visit [address] [place] [address] Kartik Valdez MD [address] [place] [address], [address] [place] [address] documented as of this encounter Visit Diagnoses Not on filedocumented in this encounter Additional Health Concerns Assessment Noted Time PHQ-2 Depression Total Score: 0 02/19/20 21 11:40 AM EST documented as of this encounter Care Teams Demand Planning Analyst Relationship Specialty Start Date End Date Kartik Valdez MD [address] [place] [address], [address] [place] [address] PCP - General Internal Medicine 02/24/17 Merrill Lucero, ESL TEACHER [address] [place] [address], [address] [place] [address] Historical LMR Provider 01/19/17 Idania Chavira MD [address] [place] [address], [address] [place] [address] [email or web address] Historical LMR Provider 01/19/17 Kartik Valdez MD [address] [place] [address], [address] [place] [address] [email or web address] Historical LMR Provider 01/19/17 Kartik Valdez MD [address] [place] [address], [address] [place] [address] [email or web address] Insurance Assigned Provider 07/10/23 documented as of this encounter Additional Source Comments The information contained in this document represents components of the legal health record. It is not the complete legal health record.[facility]
--- OUTSIDE RECORDS SUMMARY | 2025-01-29 18:34 | XMS_ITS | Encounter Summary ---
Author Organization [facility] Address [address] [facility] [address] [place] [address] Phone Care Team Providers Care Field Staff Name Role Phone Merrill Lucero CAREER DEVELOPMENT SPECIALIST Unavailable Idania Chavira MD Unavailable Kartik Valdez MD Unavailable [phone] Kartik Valdez MD Primary Care Provider Kartik Valdez MD Unavailable [phone] Reason for Visit * Reason Comments Med Change Request Encounter Details Date Type Department Care Team (Late st Contact Info) Description 08/27/2022 [facility] [address] [place] [address] 3rd Floor, [address] [place] [address] Jung Castillo MD [address] [place] [address] [email or web address] Med Change Request Social History Tobacco Use Types Packs/Day Years [...] high school, GED, job training, learning the German language, technical skills, or developing parenting skills)? [...] with a working camera? 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 Castillo's last note states she wasn't taking it due to thrush documented in this encounter Plan of Treatment Upcoming Encounters Date Type Department Care Team (Late st Contact Info) Description 01/31/2025 12:45 PM EDT Office Visit [address] [place] [address] Kartik Valdez MD [address] [place] [address], [address] [place] [address] 02/20/2025 9:40 AM EST Office Visit [facility] [address] [place] [address] Lennie Preciado CNP [address] [place] [address], 1st [place] [address] 02/20/2025 11:00 AM EST Office Visit [facility] [address] [place] [address] 3rd [facility], [address] [place] [address] Rodolfo Hargrove MD [address] [place] [address], [address] [address] [email or web address] Divina Walls, TONY [address] [place] [address], [address] [address] 04/09/2025 11:20 AM EST Office Visit [facility] [address] [place] [address] 3rd [facility], [address] [place] [address] Haris Lomax MD, MS [address] [place] [address], [address] [address] 06/18/2025 9:45 AM EDT Office Visit [facility] [address] [place] [address] Kartik Valdez MD [address] [place] [address], [address] [address] documented as of this encounter Visit Diagnoses Not on filedocumented in this encounter Additional Health Concerns Assessment Noted Time PHQ-2 Depression Total Score: 0 07/16/19 23 5:07 PM EDT documented as of this encounter Care Teams Field Staff Relationship Specialty Start Date End Date Kartik Valdez MD [address] [place] [address], [address] [place] [address] PCP - General Internal Medicine 02/24/17 Merrill Lucero, [place] [address] [place] [address], [address] [place] [address] Historical LMR Provider 01/19/17 Idania Chavira MD [address] [place] [address], [address] [place] [address] Historical LMR Provider 01/19/17 Kartik Valdez MD [address] [place] [address], [address] [place] [address] Historical LMR Provider 01/19/17 Kartik Valdez MD [address] [place] [address], [address] [place] [address] Insurance Assigned Provider 07/10/23 documented as of this encounter Additional Source Comments The information contained in this document represents components of the legal health record. It is not the complete legal health record.[facility]
--- OUTSIDE RECORDS SUMMARY | 2025-01-29 18:34 | XMS_ITS | Encounter Summary ---
Author Organization [facility] Address [address] [place] [address] [place] [address] Phone Care Team Providers Care Microsoft Dynamics Developer Name Role Phone Merrill Lucero TOOL SHARPENER Unavailable Gabriele Cantu MD Unavailable [phone] Idania Chavira MD Unavailable Kartik Valdez MD Unavailable [phone] Kartik Valdez MD Primary Care Provider Kartik Valdez MD Unavailable [phone] Encounter Details Date Type Department Care Team (Late Contact Info) Description 02/09/2018 Prep for Surgery [facility] Orthopedics & Sports Medicine [address] [place] [address] Monique Steward MD [address] [place] [address] Orthopedics & Sports Medicine, [facility]. [place], [place] [id number] [email or web address] Social History Tobacco Use Types Packs/Day Years [...] Description 01/31/2025 12:45 PM EDT Office Visit [address] [place] [address] Kartik Valdez MD [address] [place] [address], [address] [place] [address] 02/20/2025 9:40 AM EST Office Visit [facility] [address] [place] [address] [place] [address] Lennie Preciado, BR[place] [address] [place] [address], 1st [place] [address] 02/20/2025 11:00 AM EST Office Visit [facility] [address] [place] [address] 3rd [facility], [address] [place] [address] Rodolfo Hargrove MD [address] [place] [address], [address] [address] [email or web address] Divina Walls, TONY [address] [place] [address], [address] [place] [address] 04/09/2025 11:20 AM EST Office Visit [facility] [address] 3rd [facility], [address] [place] [address] Haris Lomax MD, MS [address] [place] [address], [address] [address] 06/18/2025 9:45 AM EDT Office Visit [address] [place] [address] Kartik Valdez MD [address] [place] [address], [address] [place] [address] documented as of this encounter Visit Diagnoses Not on filedocumented in this encounter Additional Health Concerns Infection Onset Date Last Indicated Resolved Time CoV-Risk 10/21/2020 10/22/2020 10/31/2020 1:44 AM EDT CoV-Risk 02/14/2021 02/14/2021 02/24/2021 1:22 AM EST documented as of this encounter Care Teams Microsoft Dynamics Developer Relationship Specialty Start Date End Date Kartik Valdez MD [address] [place] [address], [address] [place] [address] PCP - General Internal Medicine 02/24/17 Merrill Lucero CNP [address] [place] [address], [address] [place] [address] Historical LMR Provider 01/19/17 Gabriele Cantu MD [address] [place] [address] [email or web address] Historical LMR Provider 01/19/17 04/12/21 Idania Chavira MD [address] [place] [address], [facility] [address] [place] [address] Historical LMR Provider 01/19/17 Kartik Valdez MD [address] [place] [address], [address] [place] [address] Historical LMR Provider 01/19/17 Kartik Valdez MD [address] [place] [address], [address] [place] [address] [email or web address] Insurance Assigned Provider 4/6/24 documented as of this encounter Additional Source Comments The information contained in this document represents components of the legal health record. It is not the complete legal health record[facility]
--- OUTSIDE RECORDS SUMMARY | 2025-01-29 18:34 | XMS_ITS | Encounter Summary ---
Author Organization [facility] Address [address] [place] [address] [place] [address] Phone Care Team Providers Care Anode Rebuilder Name Role Phone Merrill Lucero ENVELOPE MAKER Unavailable Gabriele Cantu MD Unavailable + [phone] Idania Chavira MD Unavailable Kartik Valdez MD Unavailable [phone] Kartik Valdez MD Primary Care Provider [phone] Kartik Valdez MD Unavailable [phone] Encounter Details Date Type Department Care Team (Late Contact Info) Description 04/06/2018 Procedure Pass OR Admitting Dept - Virtual Department [address] [place] [address] Social History Tobacco Use Types Packs/Day Years [...] 01/31/2025 12:45 PM EDT Office Visit [facility] [address] [place] [address] Kartik Valdez MD [address] [place] [address], [address] [place] [address] 02/20/2025 9:40 AM EST Office Visit [facility] [address] [place] [address] Lennie Preciado, [place] 22 [facility], 1st [place] [address] 02/20/2025 11:00 AM EST Office Visit [facility] [address] [place] [address] 3rd Floor, [address] [place] [address] Rodolfo Hargrove MD [address] [place] [address], [address] [address] [email or web address] Divina Walls, TONY [address] [place] [address], [address] [place] [address] 04/09/2025 11:20 AM EST Office Visit [facility] [address] 3rd Floor, [address] [place] [address] Haris Loamx MD, [place] [address] [place] [address], [address] [place] [address] 06/18/2025 9:45 AM EDT Office Visit [facility] [address] [place] [address] Kartik Valdez MD [address] [place] [address], [address] [place] [address] documented as of this encounter Visit Diagnoses Not on filedocumented in this encounter Additional Health Concerns Infection Onset Date Last Indicated Resolved Time CoV-Risk 10/21/2020 10/22/2020 10/31/2020 1:44 AM EDT CoV-Risk 02/14/2021 02/14/2021 02/24/2021 1:22 AM EST documented as of this encounter Care Teams Anode Rebuilder Relationship Specialty Start Date End Date Kartik Valdez MD [address] [place] [address], [address] [place] [address] PCP - General Internal Medicine 02/24/17 Merrill Lucero, [place] [address] [place] [address], [address] [place] [address] Historical LMR Provider 01/19/17 Gabriele Cantu MD [address] [place] [address] [email or web address] Historical LMR Provider 01/19/17 04/12/21 Idania Chavira MD [address] [place] [address], [address] [place] [address] Historical LMR Provider 01/19/17 Kartik Valdez MD [address] [place] [address], [address] [place] [address] Historical LMR Provider 01/19/17 Kartik Valdez MD [address] [place] [address], [address] [place] [address] Insurance Assigned Provider 07/10/23 documented as of this encounter Additional Source Comments The information contained in this document represents components of the legal health record. It is not the complete legal health record.[facility]
--- OUTSIDE RECORDS SUMMARY | 2025-01-29 18:35 | XMS_ITS | Encounter Summary ---
Author Organization [facility] Address [address] [place] [address] [place] [address] Phone Care Team Providers Care K 12 Principal Name Role Phone Merrill Lucero HAND CIGAR MAKER Unavailable Gabriele Cantu MD Unavailable [phone] Idania Chavira MD Unavailable Kartik Valdez MD Unavailable [phone] Kartik Valdez MD Primary Care Provider [phone] Kartik Valdez MD Unavailable [phone] Reason for Referral * MRI/CAT Scan - Closed Specialty Diagnoses / Procedures Referred By Bryanna johnson Referred To Contact Radiology Diagnoses Pulsatile tinnitus Vertigo Procedures MRI Brain MRI Brain Jace Reardon MD Phone: tel: fax: mailto:[email or web address] Referral ID Status Reason Start Date Expiration Date Visits Re quested Visits Authorized [id number] Closed 10/18/2017 11/16/2017 1 1 Encounter Details Date Type Department Care Team (Late st Contact Info) Description 10/20/2017 Ancillary Orders Virtual Department [address] [place] [address] Jace Reardon MD [address] [place] [address], [address] [place] [address] [email or web address] Pulsatile tinnitus; Vertigo Social History Tobacco Use Types Packs/Day Years [...] Description 01/31/2025 12:45 PM EDT Office Visit [facility] [address] [place] [address] [place] [address] Kartik Valdez MD [address] [place] [address], [address] [place] [address] 02/20/2025 9:40 AM EST Office Visit [facility] [address] [place] [address] Lennie Preciado, [place] [address] [place] [address], 1st [place] [address] [email or web address] 02/20/2025 11:00 AM EST Office Visit [facility] [address] [place] [address] 3rd [facility], [address] [place] [address] Rodolfo Hargrove MD [address] [place] [address], [address] [address] [email or web address] Divina Walls, TONY [address] [place] [address], [address] [address] 04/09/2025 11:20 AM EST Office Visit [facility] [address] [place] [address] 3rd [facility], [address] [place] [address] Haris Lomax MD, MS [address] [place] [address], [address] [address] 06/18/2025 9:45 AM EDT Office Visit [facility] [address] [place] [address] Kartik Valdez MD 22 [facility], [address] [place] [address] [email or web address] documented as of this encounter Results * MRI BRAIN WITHOUT CONTRAST (11/13/2017 10:03 AM EDT) Anatomical Region Laterality Modality Head Magnetic Resonan ce 11/13/2017 11:5 1 AM EDT Impressions 11/13/2017 10:24 PM EDT No evidence of acute infarction, intracranial hemorrhage, mass, mass effect, or white matter disease. Nonspecific small left mastoid effusion. POS - [id number] Edited by: Sophie Gregg on 11/13/2017 12:24 PM Narrative 11/13/2017 10:24 PM EDT HISTORY: Pulsatile tinnitus. Sudden onset of pulsing/swishing sensation to left face and left ear July 2017 lasting until mid August 2017. ?Patient with vertigo and occasional lightheadedness. COMPARISON: None. CORRELATION: None. TECHNIQUE: Exam performed on a 1.5 Licha high-field MRI scanner. Axial T1, T2, T2*, T2 FLAIR and diffusion-weighted imaging with ADC map, axial 3-D FIESTA through the posterior fossa, sagittal T1 sequences were obtained. FINDINGS: No restricted diffusion to indicate a recent infarct. No evidence of intracranial hemorrhage. No significant signal abnormality in the brain parenchyma. No evidence of a mass, mass effect, or midline shift. No mass detected in the internal auditory canals on high-resolution imaging through the posterior fossa. No hydrocephalus. Basal cisterns are patent. No cerebellar ectopia. Pituitary gland is not enlarged. Normal vascular flow-voids appear present in the major intracranial arteries at the skull base. Mild mucosal thickening in the paranasal sinuses. Subcentimeter retention cysts or polyps in the left maxillary and right sphenoid sinuses. Small amount of fluid signal within left mastoid air cells. Procedure Note Moustapha Fernandez MD - 11/13/2017 HISTORY: Pulsatile tinnitus. Sudden onset of pulsing/swishing sensationto left face and left ear July 2017 lasting until mid August 2017. ?Patientwith vertigo and occasional lightheadedness. COMPARISON: None. CORRELATION: None. TECHNIQUE: Exam performed on a 1.5 Licha high-field MRI scanner. AxialT1, T2, T2*, T2 FLAIR and diffusion-weighted imaging with ADC map, axial3-D FIESTA through the posterior fossa, sagittal T1 sequences wereobtained. FINDINGS: No restricted diffusion to indicate a recent infarct. No evidence ofintracranial hemorrhage. No significant signal abnormality in the brainparenchyma. No evidence of a mass, mass effect, or midline shift. No mass detected inthe internal auditory canals on high-resolution imaging through theposterior fossa. No hydrocephalus. Basal cisterns are patent. Nocerebellar ectopia. Pituitary gland is not enlarged. Normal vascularflow-voids appear present in the major intracranial arteries at the skullbase. Mild mucosal thickening in the paranasal sinuses. Subcentimeter retentioncysts or polyps in the left maxillary and right sphenoid sinuses. Smallamount of fluid signal within left mastoid air cells. IMPRESSION: No evidence of acute infarction, intracranial hemorrhage, mass, masseffect, or white matter disease. Nonspecific small left mastoideffusion. POS - [id number] Edited by: Sophie Gregg on 11/13/2017 12:24 PM Jace Reardon MD IMG MR HEAD/NECK Final Resul t documented in this encounter Visit Diagnoses Diagnosis Pulsatile tinnitus Vertigo Dizziness and giddiness Pulsatile tinnitus Vertigo Dizziness and giddiness documented in this encounter Additional Health Concerns Infection Onset Date Last Indicated Resolved Time CoV-Risk 10/21/2020 10/22/2020 10/31/2020 1:44 AM EDT CoV-Risk 02/14/2021 02/14/2021 02/24/2021 1:22 AM EST documented as of this encounter Care Teams K 12 Principal Relationship Specialty Start Date End Date Kartik Valdez MD [address] [place] [address], [address] [place] [address] PCP - General Internal Medicine 02/24/17 Merrill Lucero, [place] [address] [place] [address], [address] [place] [address] Historical LMR Provider 01/19/17 Gabriele Cantu MD [address] [place] [address] [email or web address] Historical LMR Provider 01/19/17 04/12/21 Idania Chavira MD [address] [place] [address], [address] [place] [address] [email or web address] Historical LMR Provider 01/19/17 Kartik Valdez MD [address] [place] [address], [address] [place] [address] Historical LMR Provider 01/19/17 Kartik Valdez MD [address] [place] [address], [address] [place] [address] [email or web address] Insurance Assigned Provider 07/10/23 documented as of this encounter Additional Source Comments The information contained in this document represents components of the legal health record. It is not the complete legal health record.[facility]
--- OUTSIDE RECORDS SUMMARY | 2025-01-29 18:35 | XMS_ITS | Encounter Summary ---
Author Organization [facility] Address [address] [facility] [address] [place] [address] Phone Care Team Providers Care Dust Collector Name Role Phone Merrill Lucero BROOK[place]N Unavailable Idania Chavira MD Unavailable Kartik Valdez MD Unavailable [phone] Kartik Valdez MD Primary Care Provider [phone] Kartik Valdez MD Unavailable [phone] Reason for Visit * Reason Onset Date Comments Pre-op Exam 01/18/2025 Cataract pre op + 06/25 Encounter Details Date Type Department Care Team (Late st Contact Info) Description 01/18/2025 Telephone [facility] [address] [address] Kartik Valdez MD 22 [facility], [address] [place], [place] [address] [email or web address] Pre-op Exam (Cataract pre op + 06/25) Social History Tobacco Use Types Packs/Day Years [...] ecorded Denied Basic Needs Not on file 01/26/2024 In the past 12 months have y ou been in a relationship with a person who hurts, threatens, or tries to control you? No 01/26/2024 Worried food would run out Not on file 01/25 In the past 12 months have y ou been in a relationship with a person who hurts, threatens, or tries to control you? 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 Bony Ervin Name of person to contact with Pre-op info, including contact number: Elzbieta Confirm you have informed the patient that the Pre-op Paperwork must be faxed to the office before the appt.:yes or no or NA: Yes [facility] CSS Agent (Please do not reply to this user, as this inbox is not monitored.) Thank you documented in this encounter Plan of Treatment Upcoming Encounters Date Type Department Care Team (Late st Contact Info) Description 01/31/2025 12:45 PM EDT Office Visit [facility] [address] [place] [address] [place] [address] Kartik Valdez MD [address] [place] [address], [address] [place] [address] 02/20/2025 9:40 AM EST Office Visit [facility] [address] [place] [address] [place] [address] Lennie Preciado CNP [address] [place] [address], 1st [place] [address] 02/20/2025 11:00 AM EST Office Visit [facility] [address] [place] [address] 3rd Floor, [address] [place] [address] Rodolfo Hargrove MD [address] [place] [address], [address] [place] [address] [email or web address] Divina Walls, DNP [address] [facility], [address] [place] [address] 04/09/2025 11:20 AM EST Office Visit [facility] [address] [place] [address] Dr 3rd Floor, [address] [place] [address] Haris Lomax MD, MS [address] [facility], [address] [place] [address] 06/18/2025 9:45 AM EDT Office Visit [address] [place] [address] Kartik Valdez MD [address] [place] [address], [address] [place] [address] documented as of this encounter Visit Diagnoses Not on filedocumented in this encounter Additional Health Concerns Assessment Noted Time PHQ-2 Depression Total Score: 0 01/26/20 24 1:00 PM EDT documented as of this encounter Care Teams Dust Collector Relationship Specialty Start Date End Date Kartik Valdez MD [address] [place] [address], [address] [place] [address] PCP - General Internal Medicine 02/24/17 Merrill Lucero, HYDROGRAPHY TEACHER [address] [place] [address], [address] [place] [address] Historical LMR Provider 01/19/17 Idania Chavira MD [address] [place] [address], [address] [place] [address] Historical LMR Provider 01/19/17 Kartik Valdez MD [address] [place] [address], [address] [place] [address] [email or web address] Historical LMR Provider 01/19/17 Kartik Valdez MD [address] [place] [address], [address] [place] [address] [email or web address] Insurance Assigned Provider 07/10/23 documented as of this encounter Additional Source Comments The information contained in this document represents components of the legal health record. It is not the complete legal health record.[facility]
--- OUTSIDE RECORDS SUMMARY | 2025-01-29 18:35 | XMS_ITS | Encounter Summary ---
Author Organization [facility] Address [address] [place] [address] [place] [address] Phone Care Team Providers Care Wheat Cleaner Name Role Phone Merrill Lucero CALL CENTER TEAM LEADER Unavailable Gabriele Cantu MD Unavailable [phone] Idania Chavira MD Unavailable Kartik Valdez MD Unavailable [phone] Kartik Valdez MD Primary Care Provider Kartik Valdez MD Unavailable [phone] Encounter Details Date Type Department Care Team (Late Contact Info) Description 02/10/2021 Procedure Pass [facility], [address] [address] Social History Tobacco Use Types Packs/Day Years [...] Description 01/31/2025 12:45 PM EDT Office Visit [facility] [address] [place] [address] [place] [address] Kartik Valdez MD [address] [place] [address], [address] [place] [address] 02/20/2025 9:40 AM EST Office Visit [facility] [address] [place] [address] Lennie Preciado, [place] [address] [facility], 1st [place] [address] 02/20/2025 11:00 AM EST Office Visit [facility] [address] [place] [address] Dr 3rd [facility], [address] [place] [address] Rodolfo Hargrove MD [address] [place] [address], [address] [address] [email or web address] Divina Walls, TONY [address] [place] [address], [address] [place] [address] 04/09/2025 11:20 AM EST Office Visit [facility] [address] 3rd Floor, [address] [place] [address] Haris Lomax MD, MS [address] [place] [address], [address] [address] 06/18/2025 9:45 AM EDT Office Visit [facility] [address] [place] [address] [place] [address] Kartik Valdez MD [address] [place] [address], [address] [place] [address] documented as of this encounter Visit Diagnoses Not on filedocumented in this encounter Additional Health Concerns Infection Onset Date Last Indicated Resolved Time CoV-Risk 02/14/2021 02/14/2021 02/24/2021 1:22 AM EST Assessment Noted Time PHQ-2 Depression Total Score: 0 02/19/20 11:40 AM EST documented as of this encounter Care Teams Wheat Cleaner Relationship Specialty Start Date End Date Kartik Valdez MD [address] [place] [address], [address] [place] [address] PCP - General Internal Medicine 02/24/17 Merrill Lucero, CALL CENTER TEAM LEADER [address] [place] [address], [address] [place] [address] [email or web address] Historical LMR Provider 01/19/17 Gabriele Cantu MD [address] [place] [address] [email or web address] Historical LMR Provider 01/19/17 04/12/21 Idania Chavira MD [address] [place] [address], [facility] [address] [place] [address] [email or web address] Historical LMR Provider 01/19/17 Kartik Valdez MD [address] [place] [address], [address] [place] [address] [email or web address] Historical LMR Provider 01/19/17 Kartik Valdez MD [address] [place] [address], [address] [place] [address] [email or web address] Insurance Assigned Provider 07/10/23 documented as of this encounter Additional Source Comments The information contained in this document represents components of the legal health record. It is not the complete legal health record.[facility]
--- OUTSIDE RECORDS SUMMARY | 2025-01-29 18:35 | XMS_ITS | Patient Health Record ---
Author Organization [facility] Address [address] [place] [address] Care Team Providers Care Charging Machine Operator Name Role Phone Fatemeh Valdez MD Primary Care Provider Haris Shipley [phone] Allergies Allergen (clinical drug ingredient) Drug/Non Drug Allergy documented on EMR Reaction Allergy Type Onset Date Status Penicillin rash Drug Allergy Active morphine Morphine resp/hallucinat ions Drug Allergy Active metoprolol Metoprolol low heart rate Drug Allergy Active erythromycin Erythromycin severe GI symptoms Drug Allergy Active Results Component Value Reference Range Notes Prothrombin Time INR Reviewed date:01/22/2025 04:05:50 PM Interpretation: Performing Lab:[address] [address] Notes/Report: Prothrombin Time 12.0 10.9-12.4 SEC INTERNATIONAL NORM RATIO 1.0 0.9-1.1 [...] mechanical prosthetic heart valves: 2.5 - 3.5 Complete Blood Count Auto Di ff Reviewed date:02/10/2024 01:40:42 PM Interpretation: Performing Lab:[facility], [address] [place] [phone] Notes/Report: White Blood Count 5.6 4.8-10.8 X10*3/uL [...] INR Reviewed date:02/10/2024 01:40:49 PM Interpretation: Performing Lab:[facility], [address] [place] [address] Notes/Report: Prothrombin Time 11.9 10.9-12.4 SEC INTERNATIONAL [...] Panel Reviewed date:02/10/2024 01:41:13 PM Interpretation: Performing Lab:[address] [address] Notes/Report: Bilirubin Total 0.6 0.0-1.0 mg/dL Bilirubin Direct 0.2 0.0-0.5 mg/dL Aspartate Amino Transferase 31 5-31 U/L Alanine Aminotransferase 30 0-31 U/L Total Protein 7.4 6.5-8.0 g/dL Albumin Level 4.3 3.5-5.0 g/dL Alkaline Phosphatase 64 39-117 U/L Alpha Fetoprotein Reviewed date:02/17/2024 08:47:04 PM Interpretation: Performing Lab:[facility], [address] [place] [address] Notes/Report: Alpha Fetoprotein 1.9 Reference Range: <6.1 The use of AFP as a tumor marker in females is not recommended. This test was performed using the [employer] [place] chemiluminescent method. Values obtained from different assay methods cannot be used interchangeably. AFP levels, regardless of value, should not be interpreted as absolute evidence of the presence or absence of disease. THIS TEST WAS PERFORMED AT: [facility] [address] [place] [phone] NELI MEYER MD Liver Fibrosis Pnl Reviewed date:03/21/2024 12:02:54 AM Interpretation: Performing Lab:[address] [address] Notes/Report: Liver Fibrosis Score 0.44 Liver Fibrosis [...] a>0.62 and a<=1.00 : A3 (severe activity) GAE-Rjgba-0-Macroglobulin 382 106-279 mg/dL FIB-Haptoglobin 94 43-212 mg/dL FIB-Apolipoprotein A1 146 101-198 mg/dL FIB-Total Bilirubin 0.4 0.2-1.2 mg/dL FIB-GGT 10 3-65 U/L FIB-ALT 18 6-29 U/L Reference ID [id number] Footnote SEE NOTE The reliability of results is dependent on compliance with the preanalytical and analytical conditions recommended by [employer]. The tests have to be deferred for: [...] The performance characteristics have been determined by [employer] [facility]. It has not been cleared or approved by the U.S. Food and Drug Administration. Performance characteristics refer to the analytical performance of the test. [employer], [employer], the associated logo, [employer] and all associated [employer] del toro are the registered trademarks of [employer]. All third libertarian del toro - (R) and (TM) - are the property of their respective owners. (C) 9571-0995 [employer]. All rights reserved. THIS TEST WAS PERFORMED AT: [facility] [facility] [address] [place] [address] KAMLESH SOTO MD,PHD,KATALINA Hep C Viral Load Reviewed date:02/17/2024 08:46:45 PM Interpretation: Performing Lab:[address] [address] Notes/Report: HepC Viral Load <15 NOT DETECTED NOT DETECTED IU/mL HCV Log PCR <1.18 NOT DETECTED NOT DETECTED Log IU/mL For additional information, please refer to http://education.[employer]/faq/FAQ22v 1 (This link is being provided for informational/ educational purposes only.) THIS TEST WAS PERFORMED AT: [facility] [address] [place] [phone] NELI MEYER MD US abdomen comp w elastograp hy Reviewed date:03/21/2024 11:11:09 PM Interpretation: Performing Lab: Notes/Report: [address] [address] Ultrasound Report Signed Patient: Mansoor Ha MR#: [id number] : 1955 Acct:[id number] Age/Sex: 68 / F ADM Date: 02/09/24 Loc: HO.US Attending Dr: Haris Vines MD Ordering Physician: Haris Vines MD Date of Service: 02/09/24 Procedure(s): US abdomen comp w elastography Accession Number(s): [id number] cc: FATEMEH VALDEZ MD; Haris Vines MD [...] by: Clovis Vanegas MD 03/21/2024 09:50 AM [facility] Dictated By: Clovis Vanegas MD Signed By: <Electronically signed by Clovis Vanegas MD in OV> 03/21/24 0950 DD/ 1008 TD/TT: 02/09/24 1021 Early Childhood Lead Teacher: Complete Blood Count Auto Di ff Reviewed date:01/25/2025 11:16:07 AM Interpretation: Performing Lab:[facility], [address] [place] [address] Notes/Report: White Blood Count 6.0 4.8-10.8 X10*3/uL Red Blood Count 4.89 4.20-5.50 X10*6/uL Hemoglobin 14.3 12.0-16.0 g/dl Hematocrit 43.2 37.0-47.0 % Mean Corpuscular Volume 88.3 80.0-98.0 fL Mean Corpuscular Hemoglobin 29.2 27.0-33.0 pg Mean Corpuscular HGB Conc 33.1 31.0-35.0 g/dl Red Cell Distribution Width 12.0 11.0-16.0 % Platelet Count 203 160-400 X10*3/uL Mean Platelet Volume 9.9 9.4-12.3 fL Neutrophils Percent Auto 53.0 45-73 % Imm Gran Pct Auto 0.3 0.0-0.4 % Lymphocytes Percent Auto 34.6 20-40 % Monocytes Percent Auto 7.8 2-11 % Eosinophils Percent Auto 3.0 0-4 % Basophils Percent Auto 1.3 0-2 % NRBC Pct Auto 0.0 0.0-0.2 /100WBC Neutrophils Absolute Auto 3.2 2.0-8.3 x10*3/u L Imm Gran Abs Auto 0.02 0.00-0.03 X10*3/uL Lymphocytes Absolute Auto 2.1 1.2-4.9 X10*3/u L Monocytes Absolute Auto 0.5 0.1-1.2 X10*3/uL Eosinophils Absolute Auto 0.2 0.0-0.4 X10*3/u L Basophils Absolute Auto 0.1 0.0-0.2 X10*3/uL NRBC Abs Auto 0.000 0.0-0.012 X10*3/uL Liver Panel Reviewed date:01/18/2025 10:52:31 PM Interpretation: Performing Lab:[facility], [address] [place] [phone] Notes/Report: Bilirubin Total 0.4 0.0-1.0 mg/dL Bilirubin Direct 0.1 0.0-0.5 mg/dL Aspartate Amino Transferase 27 5-31 U/L Alanine Aminotransferase 28 0-31 U/L Total Protein 7.1 6.5-8.0 g/dL Albumin Level 4.5 3.5-5.0 g/dL Alkaline Phosphatase 62 39-117 U/L Alpha Fetoprotein Reviewed date:01/25/2025 11:15:44 AM Interpretation: Performing Lab:[facility], [address] [place] [address] Notes/Report: Alpha Fetoprotein 2.3 Reference Range: <6.1 The use of AFP as a tumor marker in females is not recommended. This test was performed using the [employer] [place] chemiluminescent method. Values obtained from different assay methods cannot be used interchangeably. AFP levels, regardless of value, should not be interpreted as absolute evidence of the presence or absence of disease. THIS TEST WAS PERFORMED AT: [facility] [address] [place] [phone] NELI MEYER MD Liver Fibrosis Pnl (Not yet reviewed by provider) Interpretation: Performing Lab:[facility], [address] [place] [phone] Notes/Report: Liver Fibrosis Score 0.42 Liver Fibrosis Stage F1-F2 Liver Fibrosis Interpretation [...] F4 (severe fibrosis) Nec Inflam Act Score 0.09 Nec Inflam Act Grade A0 Nec Inflam [...] a>0.62 and a<=1.00 : A3 (severe activity) JIX-Scber-5-Macroglobulin 379 106-279 mg/dL FIB-Haptoglobin 101 43-212 mg/dL FIB-Apolipoprotein A1 152 101-198 mg/dL FIB-Total Bilirubin 0.4 0.2-1.2 mg/dL FIB-GGT 11 3-65 U/L FIB-ALT 19 6-29 U/L Reference ID [id number] Footnote SEE NOTE The reliability of results is dependent on compliance with the preanalytical and analytical conditions recommended by [employer]. The tests have to be deferred for: [...] The performance characteristics have been determined by [facility]. It has not been cleared or approved by the U.S. Food and Drug Administration. Performance characteristics refer to the analytical performance of the test. [employer], the associated logo, [employer] and all associated [employer] are the registered trademarks of [employer]. All third libertarian del toro - (R) and (TM) - are the property of their respective owners. (C) 7894-9938 [employer]. All rights reserved. THIS TEST WAS PERFORMED AT: [facility] [address] [place] [address] KAMLESH SOTO MD,PHD,KATALINA Reason For Referral No Information Medications Medication [...] Status Risk Notes Problem Colon cancer screening (918954151) Colon cancer screening (Z12.11) Active confirmed Problem Constipation (29737860) Constipation (K59.00) Active confirmed Problem Abnormal findings diagnostic imaging of liver and biliary tract (665209203) Abnormal liver ultrasound (R93.2) Active confirmed Problem Hepatic hemangioma (79424813) Hepatic hemangioma (D18.03) Active confirmed Problem History of hepatitis C (65158463318842) History of hepatitis C (Z86.19) Active confirmed Problem Flatulence, eructation and gas pain (586517048) Gaseous abdominal distention (R14.0) Active confirmed Problem Fibrosis of liver (38366241) Fibrosis of liver (K74.00) Active confirmed Problem Fatty liver (660046224) Fatty infiltration of liver (K76.0) Active confirmed Vital Signs Temperature 97.3 degrees Fahrenheit 01/18/2025 Blood pressure diastolic 01 mm Hg 01/18/2025 Height 64 in 01/18/2025 Blood pressure systolic 001 mm Hg 01/18/2025 Weight 190 lbs 01/18/2025 BMI 32.61 kg/m2 01/18/2025 Encounters Encounter Location Date Provider Diagnosis [facility] [address] [place] [phone] 01/18/2025 Haris Vines History of hepatitis C Z86.19 ; Fibrosis of liver K74.00 ; Constipation K59.00 ; Fatty infiltration of liver K76.0 ; Hepatic hemangioma D18.03 and Colon cancer screening Z12.11 [facility] [address] [place] [phone] 03/20/2024 Haris Vines Assessments Encounter Date Diagnosis (ICD Code) Assessment Notes Treatment Notes Treatment Clinical Notes Section Notes 01/18/2025 History of hepatitis C (ICD-10 - Z86.19) Overall, Mansoor appears quite well and does not show any signs nor have any symptoms of progressive liver disease. I shall schedule her for her yearly ultrasound and the below laboratories. I did advise her of the need to have these done yearly due to the previous history of hepatitis C, liver fibrosis, and the theoretical increased risk of liver cancer. I did advise her to continue her current regimen of MiraLAX and lactulose for symptomatic relief of constipation. We did review that she will be due for a follow-up colonoscopy in 2028 for further screening if things remain stable. I will plan to see her in 1 year for a follow-up visit. I did advise her to call sooner if need be. She was comfortable with this plan. Thank you again for allowing me to participate in Mansoor's care. I shall continue to keep you advised of her progress. 01/18/2025 Fibrosis of liver (ICD-10 - K74.00) Overall, Mansoor appears quite well and does not show any signs nor have any symptoms of progressive liver disease. I shall schedule her for her yearly ultrasound and the below laboratories. I did advise her of the need to have these done yearly due to the previous history of hepatitis C, liver fibrosis, and the theoretical increased risk of liver cancer. I did advise her to continue her current regimen of MiraLAX and lactulose for symptomatic relief of constipation. We did review that she will be due for a follow-up colonoscopy in 2028 for further screening if things remain stable. I will plan to see her in 1 year for a follow-up visit. I did advise her to call sooner if need be. She was comfortable with this plan. Thank you again for allowing me to participate in Mansoor's care. I shall continue to keep you advised of her progress. 01/18/2025 Constipation (ICD-10 - K59.00) Continue Lactulose and Miralax for the constipation Overall, Mansoor appears quite well and does not show any signs nor have any symptoms of progressive liver disease. I shall schedule her for her yearly ultrasound and the below laboratories. I did advise her of the need to have these done yearly due to the previous history of hepatitis C, liver fibrosis, and the theoretical increased risk of liver cancer. I did advise her to continue her current regimen of MiraLAX and lactulose for symptomatic relief of constipation. We did review that she will be due for a follow-up colonoscopy in 2028 for further screening if things remain stable. I will plan to see her in 1 year for a follow-up visit. I did advise her to call sooner if need be. She was comfortable with this plan. Thank you again for allowing me to participate in Mansoor's care. I shall continue to keep you advised of her progress. 01/18/2025 Fatty infiltration of liver (ICD-10 - K76.0) Overall, Mansoor appears quite well and does not show any signs nor have any symptoms of progressive liver disease. I shall schedule her for her yearly ultrasound and the below laboratories. I did advise her of the need to have these done yearly due to the previous history of hepatitis C, liver fibrosis, and the theoretical increased risk of liver cancer. I did advise her to continue her current regimen of MiraLAX and lactulose for symptomatic relief of constipation. We did review that she will be due for a follow-up colonoscopy in 2028 for further screening if things remain stable. I will plan to see her in 1 year for a follow-up visit. I did advise her to call sooner if need be. She was comfortable with this plan. Thank you again for allowing me to participate in Mansoor's care. I shall continue to keep you advised of her progress. 01/18/2025 Hepatic hemangioma (ICD-10 - D18.03) Overall, Mansoor appears quite well and does not show any signs nor have any symptoms of progressive liver disease. I shall schedule her for her yearly ultrasound and the below laboratories. I did advise her of the need to have these done yearly due to the previous history of hepatitis C, liver fibrosis, and the theoretical increased risk of liver cancer. I did advise her to continue her current regimen of MiraLAX and lactulose for symptomatic relief of constipation. We did review that she will be due for a follow-up colonoscopy in 2028 for further screening if things remain stable. I will plan to see her in 1 year for a follow-up visit. I did advise her to call sooner if need be. She was comfortable with this plan. Thank you again for allowing me to participate in Mansoor's care. I shall continue to keep you advised of her progress. 01/18/2025 Colon cancer screening (ICD-10 - Z12.11) Overall, Mansoor appears quite well and does not show any signs nor have any symptoms of progressive liver disease. I shall schedule her for her yearly ultrasound and the below laboratories. I did advise her of the need to have these done yearly due to the previous history of hepatitis C, liver fibrosis, and the theoretical increased risk of liver cancer. I did advise her to continue her current regimen of MiraLAX and lactulose for symptomatic relief of constipation. We did review that she will be due for a follow-up colonoscopy in 2028 for further screening if things remain stable. I will plan to see her in 1 year for a follow-up visit. I did advise her to call sooner if need be. She was comfortable with this plan. Thank you again for allowing me to participate in Mansoor's care. I shall continue to keep you advised of her progress. 01/18/2025 Other Repeat colonoscopy in 2028 Overall, Mansoor appears quite well and does not show any signs nor have any symptoms of progressive liver disease. I shall schedule her for her yearly ultrasound and the below laboratories. I did advise her of the need to have these done yearly due to the previous history of hepatitis C, liver fibrosis, and the theoretical increased risk of liver cancer. I did advise her to continue her current regimen of MiraLAX and lactulose for symptomatic relief of constipation. We did review that she will be due for a follow-up colonoscopy in 2028 for further screening if things remain stable. I will plan to see her in 1 year for a follow-up visit. I did advise her to call sooner if need be. She was comfortable with this plan. Thank you again for allowing me to participate in Mansoor's care. I shall continue to keep you advised of her progress. Plan Of Treatment Pending Test Test Name Order Date BUN 01/13/2022 CREATININE 01/13/2022 LIVER PROFILE 11/25/2021 LIVER PROFILE 01/20/2024 LIVER PROFILE 01/18/2025 CBC w DIFF 01/18/2025 CBC w DIFF 01/20/2024 PROTHROMBIN TIME (PT, INR) 11/25/2021 ALPHA-FETOPROTEIN,TUMOR MARKER 5 ALPHA-FETOPROTEIN,TUMOR MARKER 2 ALPHA-FETOPROTEIN,TUMOR MARKER 3 ALPHA-FETOPROTEIN,TUMOR MARKER 4 CELIAC PANEL #10 06/18/2022 HEPATITIS C VIRAL LOAD 01/20/2024 HEPATITIS C VIRAL LOAD 11/25/2021 MRI ABD W&WO CONTRAST 01/13/2022 US ABD 11/25/2021 HCV LIVER FIBROSIS, FIBRO TEST 4 HCV LIVER FIBROSIS, FIBRO TEST 2 HCV LIVER FIBROSIS, FIBRO TEST 5 HCV LIVER FIBROSIS, FIBRO TEST 3 Prothrombin Time INR 01/20/2024 Liver Fibrosis Pnl 01/18/2025 US abdomen comp w elastography 3 US abdomen comp w elastography 4 US abdomen comp w elastography 5 Next Appt Details Provider Name:Haris Vines , 01/22/2026 10:10:00 AM, [address], [address], [place], [address], Insurance Providers Payer Name Payer Address Payer Phone Subscriber Number Group Number Insured Name Patient Relationship to Insured Coverage Start Date Coverage End Date MEDICARE OF [place] [address] [facility] [place] [address] [id number] SALLYCLARAMANSOOR Self - patient is the insured [employer] (o[employer]k) [address] [place] [address] [id number] MANSOOR HA Self - patient is the insured Medical (General) History Medical History History ICD Code Diabetes Hepatitis C Treated with int erferon-unsuccessfully; successful treatment in 2014 with Harvoni. She had a nondetectable hepatitis C viral load in 2021. Asthma/COPD HTN Arthritis Negative Colonoscopies in approx 2008 an d in 04/[address],CVA,renal disease SVT 1.3 cm Hepatic hemangioma se en on imaging dating back to a 2012 MRI- unchanged on a 2021 MRI Negative laboratories for celiac disease in June of 2022 Surgical History Surgery Date(Month/Year) Lap band placed in 2007 and removed 2015 Carpal tunnel bilateral 2019 Exploratory laparotomy with removal of l eft Fallopian tube 1982 T& A 1962 Uterine ablation 2001 Right knee replacement 2008 Left knee replacement 2008
--- OUTSIDE RECORDS SUMMARY | 2025-01-29 18:35 | XMS_ITS | Encounter Summary ---
Author Organization [facility] Address [address] [place] [address] [place] [address] Phone Care Team Providers Care Ostrich Farmer Name Role Phone Merrill Lucero CIVIL ENGINEERING DRAFTER Unavailable [phone] Gabriele Cantu MD Unavailable [phone] Idania Chavira MD Unavailable Kartik Valdez MD Unavailable [phone] Kartik Valdez MD Primary Care Provider Kartik Valdez MD Unavailable [phone] Encounter Details Date Type Department Care Team (Late Contact Info) Description 10/05/2017 Ancillary Orders Virtual Department [address] [place] [address] Jace Reardon MD [address] [place] [address], [address] [place] [address] [email or web address] Bilateral numbness and tingling of arms and legs Social History Tobacco Use Types Packs/Day Years [...] 01/31/2025 12:45 PM EDT Office Visit [facility] [address] [place] [address] Kartik Valdez MD [address] [place] [address], [address] [place] [address] 02/20/2025 9:40 AM EST Office Visit [facility] [address] [place] [address] [place] [address] Lennie Preciado, [place] [address] [place] [address], [address] [place] [address] 02/20/2025 11:00 AM EST Office Visit [facility] [address] [place] [address] [address]rd [facility], [address] [place] [address] Rodolfo Hargrove MD [address] [place] [address], [address] [address] [email or web address] Divina Walls, TONY [address] [place] [address], [address] [place] [address] 04/09/2025 11:20 AM EST Office Visit [facility] [address] [facility], [address] [place] [address] Haris Lomax MD, [place] [address] [place] [address], [address] [place] [address] 06/18/2025 9:45 AM EDT Office Visit [address] [place] [address] Kartik Valdez MD [address] [place] [address], [address] [place] [address] documented as of this encounter Visit Diagnoses Diagnosis Bilateral numbness and tingling of arms and legs documented in this encounter Additional Health Concerns Infection Onset Date Last Indicated Resolved Time CoV-Risk 10/21/2020 10/22/2020 10/31/2020 1:44 AM EDT CoV-Risk 02/14/2021 02/14/2021 02/24/2021 1:22 AM EST documented as of this encounter Care Teams Ostrich Farmer Relationship Specialty Start Date End Date Kartik Valdez MD [address] [place] [address], [address] [place] [address] PCP - General Internal Medicine 02/24/17 Merrill Lucero, [place] [address] [place] [address], [address] [place] [address] Historical LMR Provider 01/19/17 Gabriele Cantu MD [address] [place] [id number] [email or web address] Historical LMR Provider 01/19/17 04/12/21 Idania Chavira MD [address] [place] [address], [address] [place] [address] Historical LMR Provider 01/19/17 Kartik Valdez MD [address] [place] [address], [address] [place] [address] Historical LMR Provider 01/19/17 Kartik Valdez MD [address] [place] [address], [address] [place] [address] Insurance Assigned Provider 07/10/23 documented as of this encounter Additional Source Comments The information contained in this document represents components of the legal health record. It is not the complete legal health record.[facility]
--- OUTSIDE RECORDS SUMMARY | 2025-01-29 18:35 | XMS_ITS | Encounter Summary ---
Author Organization [facility] Address [address] [place] [address] [place] [id number] Phone Care Team Providers Care Lead Electrical Controls Engineer Name Role Phone Merrill Lucero BIOLOGICAL SCIENCES INSTRUCTOR Unavailable Gabriele Cantu MD Unavailable [phone] Idania Chavira MD Unavailable Kartik Valdez MD Unavailable [phone] Kartik Valdez MD Primary Care Provider Kartik Valdez MD Unavailable [phone] Encounter Details Date Type Department Care Team (Late Contact Info) Description 10/05/2017 Ancillary Orders Virtual Department [address] [place] [address] Jace Reardon MD [address] [place] [address], [address] [place] [address] [email or web address] Transient cerebral ischemia, unspecified type Social History Tobacco Use Types Packs/Day Years [...] Description 01/31/2025 12:45 PM EDT Office Visit [facility] [address] [place] [address] [place] [address] Kartik Valdez MD [address] [place] [address], [address] [place] [address] 02/20/2025 9:40 AM EST Office Visit [facility] [address] [place] [address] [place] [address] Lennie Preciado, [place] [facility] [place] [address] 02/20/2025 11:00 AM EST Office Visit [facility] [address] [place] [address] [facility], [address] [place] [address] Rodolfo Hargrove MD [address] [place] [address], [address] [place] [address] [email or web address] Divina Walls, TONY [address] [place] [address], [address] [place] [address] 04/09/2025 11:20 AM EST Office Visit [facility] [address] [facility], [address] [place] [address] Haris Lomax MD, [place] [address] [place] [address], [address] [place] [address] 06/18/2025 9:45 AM EDT Office Visit [address] [place] [address] Kartik Valdez MD [address] [place] [address], [address] [place] [address] documented as of this encounter Results * US Carotid Duplex (Bilateral) (10/19/2017 11:47 AM EDT) Anatomical Region Laterality Modality Heart, Thoracic Vasculature, Neck Ultrasound 10/19/2017 12:0 4 PM EDT Impressions 10/19/2017 12:06 PM EDT Small amount of mixed plaque in the carotid bulb on the left. No significant internal carotid artery stenosis is seen. Vertebral arteries are patent with antegrade flow bilaterally. S/S: TIA, pulsatile sound left ear POS - [id number] Narrative 10/19/2017 12:06 PM EDT The carotid circulation is visualized well with grayscale imaging, color flow imaging, and Doppler spectral analysis. On the right there is no significant plaquing evident. On the left there is a small amount of mixed plaque in the carotid bulb evident. Both external carotid and vertebral arteries are patent with antegrade flow bilaterally. No internal carotid artery stenosis is seen on either side. The right internal carotid artery has a peak systolic velocity of 0.93 m/s with an end-diastolic velocity of 0.41 m/s. On the left the internal carotid artery has a peak systolic velocity of 0.60 m/s with an end-diastolic velocity of 0.32 m/s. Minimal spectral broadening is evident. Any stenosis measurement is relative to the distal ICA diameters. Procedure Note Lucas Rivera MD - 10/19/2017 The carotid circulation is visualized well with grayscale imaging, colorflow imaging, and Doppler spectral analysis. On the right there is nosignificant plaquing evident. On the left there is a small amount ofmixed plaque in the carotid bulb evident. Both external carotid andvertebral arteries are patent with antegrade flow bilaterally. No internal carotid artery stenosis is seen on either side. The right internal carotid artery has a peak systolic velocity of 0.93 m/swith an end-diastolic velocity of 0.41 m/s. On the left the internalcarotid artery has a peak systolic velocity of 0.60 m/s with anend-diastolic velocity of 0.32 m/s. Minimal spectral broadening isevident. Any stenosis measurement is relative to the distal ICA diameters. IMPRESSION: Small amount of mixed plaque in the carotid bulb on the left. Nosignificant internal carotid artery stenosis is seen. Vertebral arteriesare patent with antegrade flow bilaterally. S/S: TIA, pulsatile sound left ear POS - [id number] us Jace Reardon MD CV US NEUROVASCULAR Final Re sult documented in this encounter Visit Diagnoses Diagnosis Transient cerebral ischemia, unspecified type Transient cerebral ischemia, unspecified type documented in this encounter Additional Health Concerns Infection Onset Date Last Indicated Resolved Time CoV-Risk 10/21/2020 10/22/2020 10/31/2020 1:44 AM EDT CoV-Risk 02/14/2021 02/14/2021 02/24/2021 1:22 AM EST documented as of this encounter Care Teams Lead Electrical Controls Engineer Relationship Specialty Start Date End Date Kartik Valdez MD [address] [place] [address], [address] [place] [address] [email or web address] PCP - General Internal Medicine 02/24/17 Merrill Lucero, [place] [address] [place] [address], [address] [place] [address] Historical LMR Provider 01/19/17 Gabriele Cantu MD [address] [place] [address] [email or web address] Historical LMR Provider 01/19/17 04/12/21 Idania Chavira MD [address] [place] [address], [address] [place] [address] [email or web address] Historical LMR Provider 01/19/17 Kartik Valdez MD [address] [place] [address], [address] [place] [address] [email or web address] Historical LMR Provider 01/19/17 Kartik Valdez MD [address] [place] [address], [address] [place] [address] [email or web address] Insurance Assigned Provider 07/10/23 documented as of this encounter Additional Source Comments The information contained in this document represents components of the legal health record. It is not the complete legal health record.[facility]
--- OUTSIDE RECORDS SUMMARY | 2025-01-29 18:35 | XMS_ITS | Clinical Summary ---
Author Organization [facility] Address [address] [place] [address] [place] [id number] Phone Care Team Providers Care Skin Washer Name Role Phone Merrill Lucero CLINICAL PATHOLOGIST Unavailable Idania Chavira MD Unavailable Kartik Valdez MD Unavailable [phone] Kartik Valdez MD Primary Care Provider Kartik Valdez MD Unavailable [phone] Allergies Active Allergy Reactions Criticality Noted Date Comments Erythromycin GI Upset Medium 08/13/2020 Ampicillin Rash Low 01/05/2015 Rosuvastatin Pain Low 05/08/2021 Metoprolol Tartrate High 07/10/2016 Other reaction(s): Bradycardia Morphine Sulfate Shortness Of Breath,Hallucinatio ns High 07/10/2016 Oxycodone-Acetaminophe n Itching 01/05/2015 Penicillin 07/10/2016 Other reaction(s): rash (TOLERATES CEPHALOSPORINS) Medications multivitamins capsule Take 1 capsule by mouth daily. Active bacillus coagulans-inulin 1 billion-250 cell-mg Cap Take 1 capsule by mouth daily. Active docusate sodium (COLACE) 100 MG capsule Take 100 mg by mouth 2 (two) times a day as needed for constipation. Active polyethylene glycol (MIRALAX) 17 gram packet Take 17 g by mouth daily. Active senna (SENOKOT) 8.6 mg tablet Take 2 tablets by mouth as needed for constipation. Active lactulose (CONSTULOSE) 20 gram/30 mL SolnIndications:Co nstipation, unspecified constipation type Take 30 mL by mouth 3 (three) times a day as needed. 500 mL 3 11/12/19 21 Active predniSONE (DELTASONE) 10 MG tablet 4 pills for 3 days, then 3 pills for 3 days, then 2 pills for 3 days, then 1 pill for 3 days, then stop 40 tablet 6 08/26/19 23 Active ipratropium-albute roL (DUONEB) 0.5-3 mg (2.5 mg base)/3 mL nebulizer solutionIndication s:Shortness of breath,Wheezing Take 3 mL by nebulization every 6 (six) hours as needed for wheezing or shortness of breath/dyspnea. ICD J45.4 is the correct code 90 mL 11 09/09/19 23 Active cyclobenzaprine (FLEXERIL) 10 MG tabletIndications: Body aches Take 0.5 tablets (5 mg total) by mouth daily as needed. 45 tablet 1 10/21/19 24 Active diphenhydrAMINE (BENADRYL) 25 mg capsule Take 25 mg by mouth every 6 (six) hours as needed for itching. Active ipratropium (ATROVENT) 21 mcg (0.03 %) nasal sprayIndications:A llergy, subsequent encounter 2 sprays by Nasal route every 12 (twelve) hours. 30 mL 12 01/28/20 24 Active simvastatin (ZOCOR) 20 MG tabletIndications: Mixed hyperlipidemia TAKE 1 TABLET BY MOUTH EVERY DAY 90 tablet 3 08/02/19 25 Active zafirlukast (ACCOLATE) 20 MG tabletIndications: Moderate persistent asthma without complication Take 1 tablet (20 mg total) by mouth 2 (two) times a day. 180 tablet 3 09/12/19 25 026 Active gabapentin (NEURONTIN) 300 MG capsuleIndications :Neuropathy TAKE 1 CAPSULE BY MOUTH NIGHTLY AT BEDTIME. 90 capsule 5 09/13/19 25 Active umeclidinium-vilan teroL (ANORO ELLIPTA) 62.5-25 mcg/actuation diskus inhalerIndications :Moderate persistent asthma without complication Inhale 1 puff into the lungs daily. 3 each 3 09/16/19 25 026 Active MOUNJARO 7.5 mg/0.5 mL PnIj subcutaneous penIndications:Typ e 2 diabetes mellitus with diabetic polyneuropathy, without long-term current use of insulin Inject 0.5 mL (7.5 mg total) under the skin once a week. 6 mL 3 10/17/19 25 Active lisinopril (PRINIVIL,ZESTRIL) 5 MG tabletIndications: Diabetic nephropathy associated with type 2 diabetes mellitus TAKE 4 TABLETS BY MOUTH DAILY. 90 tablet 3 12/27/19 25 Active ipratropium-albute roL (COMBIVENT RESPIMAT) 20-100 mcg/actuation MistIndications:Mo derate persistent asthma without complication Inhale 1 puff into the lungs every 6 (six) hours as needed (For Shortness of breath, cough and/or wheezing). 24 g 3 01/06/20 25 026 Active ipratropium-albute roL (COMBIVENT RESPIMAT) 20-100 mcg/actuation Mist Inhale 1 puff into the lungs every 4 (four) hours as needed. 8 g 6 08/26/19 23 025 Discontin u([facility]) Hospital, Clinic, or Other Facility Administered Medication Ordered Dose Route Frequency Start Date End Date Status triamcinolone acetonide (KENALOG-40) 40 mg/mL injection 20 mg 20 mg See Adm Inst See admin instructions 08/28/2021 Active lidocaine (XYLOCAINE) 1% injection 0.5 mL 0.5 mL See Adm Inst See admin instructions 08/28/2021 Active Active Problems Problem Noted Date Diagnosed Date Bilateral shoulder region arthritis 01/28/2024 Overview (01/28/2024): [facility] managing Diabetic nephropathy associa brittany with type 2 diabetes mellitus 01/28/2024 Overview (01/28/2024): Lisin 5mg started for elev microalb January 2024. Decreased urine output 09/11/2023 Neuropathy 02/05/2022 Overview (02/05/2022): Both feet, gabapentin rx'd by Podiatry Assessment & Plan (01/28/2024 10:17 AM EDT): Worsening sx, increase harrison to 300mg TID SVT (supraventricular tachycardia) 04/30/2021 Overview (05/08/2021): Single episode 04/28/21, seen at [facility]. Assessment & Plan (08/17/2022 1:00 PM EDT): Single episode precipitated by overuse of an albuterol inhaler. Continue atenolol. We reviewed her echocardiogram, showing an essentially structurally normal heart with just trace MR and TR. Postmenopausal bleeding 11/10/2018 Overview (11/10/2018): Lining 2 mm, small < 2 cm calcified leiomyoma Assessment & Plan (11/10/2018 2:31 PM EDT): Declined exam today; will call with any future bleeding, would do endobx then Status post carpal tunnel release 03/11/2018 Overview (03/11/2018): Right carpal tunnel release 03/09/[address] Steward Family history of early CAD 08/27/2017 Overview (08/27/2017): Father first ND in his 20s per pt. Uncle in his 20s of heart issues. Brother had CABG at 40 Anxiety disorder 05/27/2017 Assessment & Plan (12/14/2017 1:22 PM EDT): She does not feel her anxiety is out of control. Chronic obstructive pulmonar y disease with acute exacerbation 05/27/2017 Overview (01/12/2019): Dx in the 1990[facility] by Dr Humphrey at [facility] Jan 2019: Insurance requires change to [employer], from [employer] Assessment & Plan (05/27/2017 11:07 AM EST): Much improved, clear today. Depression 05/27/2017 Assessment & Plan (06/07/2018 2:52 PM EST): She will go to [employer] today. I'll do ONE MONTH of lorazepam only. She stopped her SSRI on her own. DJD (degenerative joint disease), cervical 05/27 Hepatic fibrosis 05/27/2017 Overview (01/28/2024): Sees Dr Vines [facility] History of hepatitis C 05/27/2017 Overview (01/28/2024): tx in 2004 and again in [address] Vines Assessment & Plan (05/27/2017 11:06 AM EST): She finished Harvoni with Dr Cantu in 2014. History of total bilateral knee replacement 05/07 Hyperlipidemia 05/27/2017 Overview (01/28/2024): Had itching on crestor Now ok on lower dose simvastatin Assessment & Plan (10/16/2024 5:12 PM EDT): Reviewed most recent lipid panel LDL above goal, but improved compared to prior LDL Goal LDL <70 with DM Continues on moderate intensity statin Assessment & Plan (06/15/2024 12:04 PM EDT): Reviewed most recent lipid panel LDL above goal, but improved compared to prior LDL Goal LDL <70 with DM Continues on moderate intensity statin Assessment & Plan (03/07/2024 12:09 PM EST): Reviewed most recent lipid panel LDL above goal, but improved compared to prior LDL Goal LDL <70 with DM Continues on moderate intensity statin Assessment & Plan (12/01/2023 8:05 PM EDT): Reviewed most recent lipid panel LDL above goal, but improved compared to prior LDL Goal LDL <70 with DM Continues on moderate intensity statin Assessment & Plan (02/02/2023 11:03 AM EDT): Reviewed most recent lipid panel LDL above goal, but improved compared to prior LDL Goal LDL <70 with DM Continues on moderate intensity statin Assessment & Plan (08/17/2022 1:01 PM EDT): Continue simvastatin. Assessment & Plan (07/22/2022 10:23 AM EDT): Reviewed most recent lipid panel LDL above goal, but improved compared to prior LDL Goal LDL <70 with DM Continues on moderate intensity statin Assessment & Plan (06/23/2022 1:42 PM EDT): No updated lipid panel since last visit LDL above goal Goal LDL <70 with DM Continues on moderate intensity statin Assessment & Plan (06/04/2022 2:51 PM EST): Reviewed most recent lipid panel LDL above goal Goal LDL <70 with DM Continues on moderate intensity statin KAREEM (obstructive sleep apnea) 05/27/2017 Overview (02/05/2022): CPAP started Fall 2021 with good benefit Assessment & Plan (07/17/2022 10:13 AM EDT): Good compliance Assessment & Plan (05/27/2017 11:06 AM EST): She does not use her CPAP, but elevates her HOB, and has lost weight. Type 2 diabetes mellitus wit h diabetic polyneuropathy, without long-term current use of insulin 05/27/2017 Assessment & Plan (10/16/2024 5:12 PM EDT): Fasting blood sugars are stable and within target, range 74-95 Continues on mounjaro, has been tolerating okay, does have constipation but feels this is well managed, she did try taking 2-5 mg pens that she had leftover for one week to try a 10 mg dose and had much worse constipation, she does not wish to increase past 7.5 mg, I don't believe she needs to with current BG control Blood pressure in good range today. Encouraged continued efforts at balanced, mindful eating Encouraged continued efforts at increasing physical activity as tolerated Advised to contact office with any questions or concerns, otherwise we will follow up in 4 months, sooner as needed Assessment & Plan (06/15/2024 4:22 PM EDT): Fasting blood sugars are stable and within target, rarely >130 Pat is tolerating Mounjaro well and this seems to be having favorable effects on blood sugars Blood pressure in good range today. Reviewed recent labwork, microalbuminuria detected but significantly improved from initial lab in January, lab placed to repeat to rule out microalbuminuria since there are many factors that can skew lab and diagnosis is dependent on repeated positive microalbuminuria We discussed treatment for microalbuminuria includes ACEi/ARB for renal protection, SGLT2i would also be a beneficial option Encouraged continued efforts at balanced, mindful eating Encouraged efforts at increasing physical activity as tolerated Advised to contact office with any questions or concerns, otherwise we will follow up in 4 months, sooner as needed Assessment & Plan (03/07/2024 2:47 PM EST): Fasting blood sugars are stable and within target, rarely >130 Pat is tolerating Mounjaro well but wants to optimize dosage in winter months when she is less active We discussed optimizing dosage, but reaching out with any unfavorable side effects or if starting to have symptoms of or actual hypoglycemia, GLP1//GIP is glucose dependent so risk of hypoglycemia is very low, but if on too much medication there could be a chance of hypoglycemia in theory, discussed with Pat that she does not need to be this tightly controlled Blood pressure in good range today. Reviewed recent labwork, microalbuminuria detected but this was the first time this lab was done, repeating test next month Encouraged continued efforts at balanced, mindful eating Encouraged efforts at increasing physical activity as tolerated, encouraged exercises aimed at strength training to help maintain muscle mass with Mounjaro Advised to contact office with any questions or concerns, otherwise we will follow up in 3 months, sooner as needed Assessment & Plan (12/01/2023 8:07 PM EDT): Fasting blood sugars are stable and within target, rarely >130 Pat is tolerating Mounjaro well Experiencing breakthrough neuropathy pain, 100 mg gabapentin to be used prn written with no refills until Pat can see primary care to discuss further Blood pressure in good range today. Due for annual labwork, these orders were placed for Pat to do at her convenience Encouraged efforts at balanced, mindful eating Encouraged efforts at increasing physical activity as tolerated Advised to contact office with any questions or concerns, otherwise we will follow up in 3 months, sooner as needed Assessment & Plan (07/29/2023 7:54 AM EDT): Control is good based upon the patient's SMBG readings and her A1C of 6.0%. She is not using any medications to cause hypoglycemia. She is frustrated with making changes to her diet and exercise and not seeing her weight go down. Discussed we could try increasing her mounjaro to 5 mg to see if it helps further improve her glucose levels and have some potential weight loss with it. She is agreeable with this plan. Continue to work on eating healthy and being active. To call or message with any issues managing her glucose levels. Up to date with wm. Reviewed labs with her Assessment & Plan (02/02/2023 11:03 AM EDT): Fasting blood sugars are stable and within target, rarely >130 Pat is tolerating 1.2 dose well, does dial a three clicks past 1.2 and estimates this to be 1.5 mg, was unable to tolerate 1.8 mg Pat continues to be interested in trying Mounjaro, we reviewed that insurance required a type 2 diagnosis and now that she has this we can try resending, Pat would be interested in seeing if it is covered Blood pressure in good range today. GFR in optimal range with most recent lab work. Encouraged efforts at balanced, mindful eating and making slow, gradual lifestyle adjustments Encouraged efforts at increasing physical activity as tolerated Advised to contact office with any questions or concerns, otherwise we will follow up in 5 months, sooner as needed Obesity, morbid Overview (02/21/2021): Had Lap band surgery 2008, then had it removed in 2015 dt S/e We discussed strategies for improving fitness and losing weight. Patient should concentrate on developing healthy habits of aerobic and light weight training exercise for 30-60 minutes, averaging at least 3-4 times a week. This should include light weight training, core strengthening, flexibility, and at least 30 minutes of aerobic exercise. Also try to cut down or eliminate carbohydrates and unnecessary calories from beverages. Assessment & Plan (05/27/2017 11:06 AM EST): Improved with Gym compliance. We discussed strategies for improving fitness and losing weight. Patient should concentrate on developing healthy habits of aerobic and light weight training exercise for 30-60 minutes, averaging at least 3-4 times a week. This should include light weight training, core strengthening, flexibility, and at least 30 minutes of aerobic exercise. Also try to cut down or eliminate carbohydrates and unnecessary calories from beverages. Right carpal tunnel syndrome Left carpal tunnel syndrome Resolved Problems Problem Noted Date Diagnosed Date Resolved Date Impaired fasting glucose 06/04/2022 Assessment & Plan (10/07/2022 11:00 AM EDT): Fasting blood sugars are relatively stable, some >130 Pat is tolerating 1.2 dose well, was unable to tolerate 1.8 mg Pat continues to be interested in trying Mounjaro, we reviewed that insurance required a type 2 diagnosis and reviewed testing to meet criteria Pat would like to try having a GTT, advised being off Victoza for at least a week prior to testing Blood pressure in good range today. GFR in optimal range with most recent lab work. Encouraged efforts at balanced, mindful eating and making slow, gradual lifestyle adjustments Encouraged efforts at increasing physical activity as tolerated Advised to contact office with any questions or concerns, otherwise we will follow up in 3 months, sooner as needed Assessment & Plan (07/22/2022 10:22 AM EDT): Fasting blood sugars have improved since optimizing Victoza dose 2 weeks ago Pat is tolerating this well Pat notes being less likely to snack since being on Victoza Discussed current patterns are still meeting diabetes goals, so my recommendation would be to remain on the 1.[address] there is room to optimize if blood sugar patterns start increasing Mansoor is encouraged to continue to monitor closely for any reactions and to hold medication if having any severe side effects and/or new symptoms of an allergic reaction and reaching out to me Blood pressure in good range today. GFR in optimal range with most recent lab work. Encouraged efforts at balanced, mindful eating and making slow, gradual lifestyle adjustments Encouraged efforts at increasing physical activity as tolerated Advised to contact office with any questions or concerns, otherwise we will follow up in October which will be 3 months after optimizing Victoza dose, at which time an A1c can be rechecked Assessment & Plan (06/23/2022 1:41 PM EDT): Mansoor has been noticing mildly worsening control, especially in fasting blood sugars which Mansoor reports to be averaging in the 130s-150s CGM download indicates excellent control with almost all time spent in range and minimal hyperglycemia > 180 Mansoor notes that eating habits were much tighter during the CGM trial and as soon as this ended, returned to previous eating habits Discussed current patterns are still meeting diabetes goals but Mansoor is expressing interesting in trying a shorter duration GLP-1 to see if this can be tolerated, especially to help with eating habits Reviewed Victoza pen administration, dosage, storage, timing, and route. Mansoor appropriate returned demonstration with demo pen. Prescription sent for Victoza to local pharmacy Mansoor is encouraged to monitor closely for any reactions and to hold medication if having any severe side effects and/or new symptoms of an allergic reaction and reaching out to me Blood pressure in good range today. GFR in optimal range with most recent lab work. Encouraged efforts at balanced, mindful eating and making slow, gradual lifestyle adjustments Encouraged efforts at increasing physical activity as tolerated Advised to contact office with any questions or concerns, otherwise we will follow up in 4 weeks for medication follow up Assessment & Plan (06/04/2022 2:49 PM EST): Mansoor has been noticing mildly worsening control, especially in fasting blood sugars which Mansoor reports to be averaging in the 130s-150s Discussed over the counter meters that are the most accurate given that all lab fasting blood sugars have remained in the 100-125 range Discussed current patterns are still meeting diabetes goals We discussed the value in doing a CGM trial, Mansoor is agreeable to an unblinded CGM trial Discussed various medication actions and side effects, including metformin, GLP- 1ra, GLP-1/GIP. Given control there is not an urgent need for medication start and Mansoor would like to work on mostly lifestyle modifications before trialing different medications Blood pressure in good range today. GFR reviewed and in optimal range with most recent lab work. Encouraged efforts at balanced, mindful eating and making slow, gradual lifestyle adjustments Encouraged efforts at increasing physical activity as tolerated Advised to contact office with any questions or concerns, otherwise we will follow up in 2 weeks for CGM evaluation CGM Trial Type of Diabetes: Impaired fasting glucose Assessment/HPI: Mansoor is here today for CGM trial. Procedures: Glucose Monitoring: Type of Sensor: Dexcom Pro, unblinded Instruction: Patient Instructed on:, Calibrations, When to test BS, Troubleshooting, What to expect with the sensor, Patient instructed to remove sensor if redness, pain or bleeding occurs. . Insertion Site Selected: left arm Site Prep: Insertion site wiped with alcohol. Insertion: completed, area looks good, no redness, no bleeding. Plan: Patient will remove sensor and return in 2 weeks for follow up appointment. Prediabetes 06/15/2024 Overview (02/05/2022): 6.4 in 2020, 2021 Cut down carbs, fruit, uses her exercise bike. February 2022: Much better on trulicity Assessment & Plan (05/19/2022 12:02 PM EST): Per request will rx oral semaglutide, I rec'd she further cut carbs, will refer to [facility]. Encounters Date Type Department Care Team Description 01/26/2025 11:14 AM EDT - 01/26/2025 11:59 PM EDT Hospital Encounter [facility], [address] [address] Kartik Valdez MD Arrived Discharge Disposition: Home or Self Care 01/18/2025 Telephone [facility] [address] [place] [address] Kartik Valdez MD Pre-op Exam (Cataract pre op + 06/25) 01/11/2025 Telephone [facility] [address] [place] [address], [address] [place] [id number] Haris Lomax MD, MS 01/05/2025 [facility] [address] [place] [address], [address] [place] [address] Haris Lomax MD, MS 01/03/2025 [facility] [address] Floor, [address] [place] [address] Kerrie Ruiz MA Medication Refill 12/23/2024 Refill [facility] [address], [address] [place] [address] Rodolfo Hargrove MD Medication Refill 12/06/2024 Orders Only [facility] [address] [place] [address] ProviderKim MD 07/06/2024 Procedure Pass [facility], [facility] [address] [place] [address] from Last 3 Months Immunizations Immunization Administration Dates Next Due COVID-19 (Pre-01/25) Pfizer Vaccine, mRNA, PF 07/13/2020,06/22/2020 INFLUENZA, SPLIT VIRUS, TRIV ALENT W/ PRESERVATIVE IM 12/04/2021,12/04/2020,12/13/2012,12/15,01/07/2011,01/03/2010,01/04/2009 ,01/30/2008,02/02/2007 Influenza High-Dose Quadriva lent Preservative Free IM 12/22/2021 Influenza Quadrivalent Prese rvative Free IM 12/24/2020,11/24/2019,01/03/2019,12/18 Influenza Quadrivalent w/ Pr eservative IM 12/31/2015,01/05/2015 Influenza Recombinant Jamie valent Preservative Free IM 12/14/2017 Influenza, Unspecified Formulation 12/18/2016, Pneumococcal conjugate PCV13 01/05/2015 Pneumococcal polysaccharide PPSV23 05/08/2021,,02/20/2002 Td (adult),2 Lf Tetanus Toxo id, PF, Adsorbed 08/27/2017 Td, unspecified formulation 01/17/2002 Tdap 12/16/2011,06/09/2009,01/17/2002 Zoster live 01/08/2014,06/16/2013 Zoster recombinant 03/10/2018,12/19/2017 Family History Medical History Relation Comments Heart disease Brother COPD Father Diabetes Father Heart disease Father Ovarian cancer Maternal Aunt Cancer Mother throat cancer Ovarian cancer Sister Breast cancer Neg Hx Relation Status Comments Brother Father Maternal Aunt Mother Sister Social History Tobacco Use Types Packs/Day Years [...] ecorded Denied Basic Needs Not on file 01/28/2025 In the past 12 months have y ou been in a relationship with a person who hurts, threatens, or tries to control you? No 01/28/2025 Worried food would run out Not on file 01/28 In the past 12 months have y ou been in a relationship with a person who hurts, threatens, or tries to control you? 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 Not on file Not on file Last Filed Vital Signs Vital Sign Reading Time Taken Comments Blood Pressure 118/72 10/16/2024 10:32 AM EDT Pulse 68 10/16/2024 10:32 AM EDT Temperature 36.2 C (97.2 F) 03/07/2024 9:20 AM EST Respiratory Rate 18 09/11/2023 9:45 AM EDT Oxygen Saturation 97% 06/15/2024 11:14 AM EDT Inhaled Oxygen Concentration - - Weight 93 kg (205 lb) 10/16/2024 10:32 AM EDT Height 162 cm (5' 3.78 ) 10/16/2024 10:32 AM EDT Body Mass Index 35.43 10/16/2024 10:32 AM EDT Plan of Treatment Upcoming Encounters Date Type Department Care Team (Late st Contact Info) Description 01/31/2025 12:45 PM EDT Office Visit [address] [place] [address] Kartik Valdez MD [address] [place] [address], [address] [place] [address] 02/20/2025 9:40 AM EST Office Visit [facility] [address] [place] [address] [place] [address] Lennie Preciado CNP [address] [place] [address], [address] [place] [address] 02/20/2025 11:00 AM EST Office Visit [facility] [address] [place] [address] 3rd Floor, [address] [place] [address] Rodolfo Hargrove MD [address] [facility], [address] [place] [address] [email or web address] Divina Walls, TONY [address] [place] [address], [address] [place] [address] 04/09/2025 11:20 AM EST Office Visit [facility] [address] [place] [address] Dr 3rd Floor, [address] [place] [address] Haris Lomax MD, MS [address] [place] [address], [address] [address] 06/18/2025 9:45 AM EDT Office Visit [facility] [address] [place] [address] Kartik Valdez MD [address] [place] [address], [address] [place] [address] Health Maintenance Due Date Last Done Comments HEPATITIS A VACCINES (1 of 2 - Risk 2-dose series) 1975 COLOGUARD 2001 FIT TEST 2001 FOBT 2001 SIGMOIDOSCOPY 2001 VIRTUAL COLONOSCOPY 2001 INFLUENZA VACCINE (#1) 2024 , 12/22/2022, 12/22/2022, Additional history exists COVID-19 VACCINE (2024- season) 2024 12/20/2023, 01/12/2023, 08/12/2022, Additional history exists CREATININE LEVEL 01/09/2025 01/10/2024, , 01/29/2022, Additional history exists POTASSIUM LEVEL 01/09/2025 01/10/2024, 07/04, 01/29/2022, Additional history exists BLOOD PRESSURE 2025 10/16/2024 HEMOGLOBIN A1C 2025 10/16/2024, 06/03, 03/07/2024, Additional history exists DIABETIC EYE EXAM 11/30/2025 11/30/2024, 04/19/2024 DEPRESSION SCREENING 01/28/2026 01/28/2025 PAP SMEAR 12/09/2026 12/09/2021, 09/04, 09/22/2018, Additional history exists MAMMOGRAM 01/26/2027 01/26/2025, 10/2023, 06/19/2022, Additional history exists Adult Td,Tdap Booster 08/28/2027 08/27/2017 , 12/16/2011, 06/09/2009, Additional history exists COLONOSCOPY 05/02/2028 05/02/2018 COLORECTAL CANCER SCREENING 05/02/2028 ZOSTER VACCINES Completed 03/10/2018, 12/04, 01/08/2014, Additional history exists OSTEOPOROSIS SCREENING INITIAL (ONE-TIME) Completed 05/06/2021 PNEUMOCOCCAL VACCINES (50+ years) Completed 05/08/2021, 01/05/2015, 01/15/2010, Additional history exists RSV VACCINE Completed 01/18/2024 SMOKING STATUS SCREENING (Once After 26 Yrs) Completed 01/26/2025 HIB VACCINES Aged Out No longer eligi ble based on patient's age to complete this topic MENINGOCOCCAL VACCINES (ACWY) Aged Out No longer eligible based on patient's age to complete this topic MENINGOCOCCAL VACCINES (B) Aged Out N o longer eligible based on patient's age to complete this topic Medical Devices Implanted Type Area Junior Technical Writer Device Identifier Shelf Expiration Date Model / Serial / Lot Bilateral Knee Replacements Procedures Procedure Name Priority Date/Time Associated Diagnosis Comments BI MAMMOGRAM SCREENING WITH TOMOSYNTHESIS WITH CAD (BILATERAL) Routine 01/26/2025 11:29 AM EDT Breast screening HM DIABETES EYE EXAM FOR RESULT ENTRY ONLY Routine 11/30/2024 2:11 PM EDT POCT HEMOGLOBIN A1C Routine 10/16/2024 1 0:51 AM EDT Type 2 diabetes mellitus with diabetic polyneuropathy, without long-term current use of insulin Mixed hyperlipidemia COMPREHENSIVE METABOLIC PANEL Routine 01/10/2024 11:53 AM EDT Type 2 diabetes mellitus without complication, without long-term current use of insulin PAP TEST Routine 12/09/2021 12:00 AM EDT BD DXA AXIAL (SPINE) WITH HIP Routine 05/06/2021 1:51 PM EST Annual physical exam HM COLONOSCOPY FOR RESULT ENTRY ONLY Routine 05/02/2018 from Last 3 Months or Most Recently Relevant to Health Maintenance Results * BI MAMMOGRAM SCREENING WITH TOMOSYNTHESIS [...] Valdez MD IMG MG EXAMS Final Result * DIABETES EYE EXAM FOR RESULT ENTRY ONLY (11/30/2024 2:11 PM EDT) Historical Provider HEALTH MAINTENANCE Edited Result - Final * (ABNORMAL) POCT Hemoglobin A1c (10/16/2024 10:51 AM EDT) Hemoglobin A1c 5.3 4.2 - 5.6 % [facility] Other 10/16/2024 10:5 1 AM EDT Lennie Preciado CNP POINT OF CARE TEST ORDERABLES Final Result Performing Organization Address City/State/[facility] Co de Phone Number [facility] [address] [place] [address], [facility] * (ABNORMAL) Comprehensive metabolic panel (01/10/2024 11:53 AM EDT) SODIUM 140 133 - 146 mmol/L [facility] POTASSIUM 4.4 3.3 - 5.1 mmol/L [facility] CHLORIDE 101 96 - 108 mmol/L [facility] CO2 28 21 - 35 mmol/L [facility] BUN 18 6 - 19 mg/dL [facility] CREATININE 0.70 0.5 - 1.5 mg/dL [facility] GLUCOSE 81 70 - 99 mg/dL [facility] ALBUMIN 4.6 3.9 - 4.8 g/dL [facility] TOTAL PROTEIN 7.7 6.5 - 8.0 g/dL [facility] CALCIUM 9.7 8.4 - 10.3 mg/dL [facility] ALKALINE PHOSPHATASE 70 39 - 117 U/L [facility] TOTAL BILIRUBIN 0.5 0.0 - 1.2 mg/dL [facility] AST 62(H) 0 - 37 U/L [facility] ALT 32 0 - 40 U/L [facility] GLOBULIN 3.1 1 - 4.8 g/dL [facility] EGFR 95 >59 mL/min/1.7 3m2 [facility] Comment:Estimated glomerular filtration rate calculated using the CKD-EPI refit equation. ANION GAP 15 10 - 20 mmol/L [facility] Blood 01/10/2024 11:5 3 AM EDT 01/10/2024 11:57 AM EDT us Lennie Ilana [facility] BLOOD ORDERABLES Final Re sult [address] [address] * Pap Smear (12/09/2021 12:00 AM EDT) 12/09/2021 12/10/2021 8:5 4 AM EDT Narrative SEE NARRATIVE - 12/12/2021 1:45 PM EDT [address] [address] Physician Locums Urgent Care: Divina Madison MD CASINO MANAGER Cytology Report FINAL DIAGNOSIS A. PAP SMEAR (SUREPATH) CE: SPECIMEN ADEQUACY: Satisfactory for evaluation; transformation zone present. INTERPRETATION: NEGATIVE FOR INTRAEPITHELIAL LESION OR MALIGNANCY. Electronically Signed Out By: UMAIR Farnsworth(ASCP) The Pap test is a screening test primarily for squamous cancers and precursors and has associated false-negative and false-positive results. New technologies such as liquid-based preparations may decrease but will not eliminate all false-negative results. Regular sampling and follow-up of unexplained clinical signs and symptoms are recommended to minimize false negative results. PROCEDURES/ADDENDA HPV Testing (Requested) Ordered Date: 12/10/2021 A. PAP SMEAR (SUREPATH) CE: Human Papilloma Virus Test Negative for high-risk human papillomavirus types 16, 18, 45 and the Other high risk probe set (Includes 31, 33, 35, 39, 51, 52, 56, 58, 59, 66, 68) by [employer] Onclarity HR-HPV analysis. Clinical correlation is advised. This HPV test was performed at [facility], [address] [place] [address]. This test has been FDA approved for SurePath cervical cytology specimens. The accuracy and precision of this test for all other specimen sources has been verified in the Cytopathology Laboratory of the [facility] and has not been cleared or approved by the U.S. Food and Drug Administration. Clinical correlation is advised. CLINICAL HISTORY Date of Last Menstrual Period: Not Provided Menstrual History: Post Menopausal Other Clinical Conditions: Screening Pap SPECIMEN SOURCE A: PAP SMEAR (SUREPATH) CE Patient Name: MANSOOR HA : 1955 (Age: 66) Sex: F Institution: [facility] Location: [facility] Date of Collection: 12/09/2021 Date of Reported: 12/12/2021 13:45 Results to: Merrill Lucero NP us Merrill Lucero CNP CYTOLOGY ORDERABLES Fi nal Result SEE NARRATIVE * BD DXA AXIAL (SPINE) WITH HIP (05/06/2021 1:51 PM EST) Anatomical Region Laterality Modality Bone Density Bone Density 05/06/2021 1:52 PM EST Impressions 05/06/2021 1:53 PM EST Normal bone density. Narrative 05/06/2021 1:53 PM EST COMPARISON: None. BONE DENSITY FINDINGS: History: This is a 66-year-old postmenopausal female. Evaluation of the lumbar spine and hips was performed and felt to be technically adequate. L1-L3 vertebral bodies total bone mineral density was calculated at 1.317 gm/cm2 with a T-score of 2.7 falling within the WHO classification of normal. Z-score of 4.5. Right femoral neck bone mineral density was calculated at 0.870 gm/cm2 with a T- score of 0.2 falling within the WHO classification of normal. Z-score of 1.7. Total Right hip bone mineral density was calculated at 1.071 gm/cm2 with a T- score of 1.1 falling within the WHO classification of normal. Z-score of 2.3. Left femoral neck bone mineral density was calculated at 0.855 gm/cm2 with a T- score of 0.1 falling within the WHO classification of normal. Z-score of 1.6. Total Left hip bone mineral density was calculated at 1.015 gm/cm2 with a T- score of 0.6 falling within the WHO classification of normal. Z-score of 1.8. Procedure Note Moshe Denton MD - 05/06/2021 COMPARISON: None. BONE DENSITY FINDINGS: History: This is a 66-year-old postmenopausal female. Evaluation of the lumbar spine and hips was performed and felt to betechnically adequate. L1-L3 vertebral bodies total bone mineral density was calculated at 1.317gm/cm2 with a T-score of 2.7 falling within the WHO classification ofnormal. Z-score of 4.5. Right femoral neck bone mineral density was calculated at 0.870 gm/cf5uwvz a T- score of 0.2 falling within the WHO classification of normal.Z-score of 1.7. Total Right hip bone mineral density was calculated at 1.071 gm/cm2 with aT- score of 1.1 falling within the WHO classification of normal. Z-scoreof 2.3. Left femoral neck bone mineral density was calculated at 0.855 gm/cm2 witha T- score of 0.1 falling within the WHO classification of normal.Z-score of 1.6. Total Left hip bone mineral density was calculated at 1.015 gm/cm2 with aT-score of 0.6 falling within the WHO classification of normal. Z-scoreof 1.8. IMPRESSION: Normal bone density. Kartik AGEE BD BONE DENSITY DEXA Final Result * COLONOSCOPY FOR RESULT ENTRY ONLY (05/02/2018) Historical Provider HEALTH MAINTENANCE Edited Result - Final from Last 3 Months or Most Recently Relevant to Health Maintenance Insurance [place] [address] EX[employer] MEDICARE SUPPLEMENT MEDICARE PART A & [place] [address] [employer] MEDICARE SUPPLEMENT MEDICARE PART A & B [facility] MEDICARE SUPPLEMENT MEDICARE PART A & [place] [address] [place] [address] MEDICARE SUPPLEMENT MEDICARE PART A & B [facility] MEDICARE SUPPLEMENT MEDICARE PART A & B [facility] MEDICARE SUPPLEMENT MEDICARE PART A & B [facility] EXTENSION MEDICARE SUPPLEMENT MEDICARE PART A & B [facility] EXTENSION MEDICARE SUPPLEMENT MEDICARE PART A & B [facility] EXTENSION MEDICARE SUPPLEMENT MEDICARE PART A & B [employer] Advance Directives For more information, please contact: [phone] (9AM - 5PM [facility], Wednesday-Wednesday) * Full Code (Presumed) (Latest Code Status on File) Date Activated Date Inactivated Comments 04/06/2018 8:03 AM 04/06/2018 1:05 PM * Full Code (Presumed) Date Activated Date Inactivated Comments 03/09/2018 10:09 AM 03/09/2018 7:50 PM Care Teams Skin Washer Relationship Specialty Start Date End Date Kartik Valdez MD [address] [place] [address], [address] [address] PCP - General Internal Medicine 02/24/17 Merrill Lucero CNP [address] [place] [address], [address] [address] Historical LMR Provider 01/19/17 Idanai Chavira MD [address] [place] [address], [facility] [address] [place] [address] Historical LMR Provider 01/19/17 Kartik Valdez MD [address] [place] [address], [address] [address] Historical LMR Provider 01/19/17 Kartik Valdez MD [address] [place] [address], [address] [place] [address] [email or web address] Insurance Assigned Provider 07/10/23 Additional Source Comments The information contained in this document represents components of the legal health record. It is not the complete legal health record.[facility]
--- OUTSIDE RECORDS SUMMARY | 2025-01-29 18:35 | XMS_ITS | Patient Health Record ---
Author Organization [facility] Address [address] [facility] [place] [address] Care Team Providers Care Dermatopathologist Name Role Phone Kartik Valdez Primary Care Provider Jasmina Jeffrey Unavailable [phone] Allergies Allergen (clinical drug ingredient) Drug/Non Drug [...] 08/29/2021 Active Mupirocin 2 % 1 application Certified Nurse Practitioner ally Twice a day; Duration: 5 day(s) [...] 300 MG TAKE 1 CAPSULE BY [facility] EVERY DAY FOR 90 DAYS; Duration: [...] Status Risk Notes Problem Acquired hallux valgus (38385977) Hallux valgus (acquired), right foot (M20.11) Active confirmed Problem Neuropathy (968099077) Neuropathy (G62.9) Active confirmed Problem Non-pressure chronic ulcer right lower leg, 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 [place] [address] [id number] [employer] Ha Self - patient is the insured [employer] ([facility]) [address] [place] [address] [phone] [id number] [employer] Self - patient is the insured Medical (General) History Medical History History ICD Code Anxiety Arthritis asthma CAD (Cholesterol) Hepatitis C High blood pressure chronic sinusitis Measles Mumps Chicken pox Transfusions Degenerative joint disease Surgical History Surgery Date(Month/Year) knee replacement - [place] 2009 carpal tunnel both hands
--- OUTSIDE RECORDS SUMMARY | 2025-01-29 18:35 | XMS_ITS | Encounter Summary ---
Author Organization [facility] Address [address] [place] [address] [place] [address] Phone Care Team Providers Care Horizontal Boring Mill Set Up Operator Name Role Phone Merrill Lucero INDUSTRIAL PSYCHOLOGIST Unavailable Garbiele Cantu MD Unavailable [phone] Idania Chavira MD Unavailable Kartik Valdez MD Unavailable [phone] Kartik Valdez MD Primary Care Provider Kartik Valdez MD Unavailable [phone] Encounter Details Date Type Department Care Team (Late Contact Info) Description 10/18/2017 Ancillary Orders Virtual Department [address] [place] [address] Jace Reardon MD [address] [place] [address], [address] [place] [address] [email or web address] Pulsatile tinnitus; Vertigo Social History Tobacco Use [...] Upcoming Encounters Date Type Department Care Team ([facility] Contact Info) Description 01/31/2025 12:45 PM EDT Office Visit [facility] [address] [place] [address] [place] [address] Kartik Valdez MD [address] [place] [address], [address] [place] [address] 02/20/2025 9:40 AM EST Office Visit [facility] [address] [place] [address] Lennie Preciado CNP [address] [place] [address], 1st [place] [address] 02/20/2025 11:00 AM EST Office Visit [facility] [address] [place] [address] 3rd Floor, [address] [place] [address] Rodolfo Hargrove MD [address] [place] [address], [address] [place] [address] [email or web address] Divina Walls, TONY [address] [place] [address], [address] [place] [address] 04/09/2025 11:20 AM EST Office Visit [facility] [address] 3rd [facility], [address] [place] [address] Haris Lomax MD, MS [address] [place] [address], [address] [place] [address] 06/18/2025 9:45 AM EDT Office Visit [facility] [address] [place] [address] [place] [address] Kartik Valdez MD [address] [place] [address], [address] [place] [address] documented as of this encounter Visit Diagnoses Diagnosis Pulsatile tinnitus Vertigo Dizziness and giddiness documented in this encounter Additional Health Concerns Infection Onset Date Last Indicated Resolved Time CoV-Risk 10/21/2020 10/22/2020 10/31/2020 1:44 AM EDT CoV-Risk 02/14/2021 02/14/2021 02/24/2021 1:22 AM EST documented as of this encounter Care Teams Horizontal Boring Mill Set Up Operator Relationship Specialty Start Date End Date Kartik Valdez MD [address] [place] [address], [address] [place] [address] PCP - General Internal Medicine 02/24/17 Merrill Lucero, INDUSTRIAL PSYCHOLOGIST [address] [place] [address], [address] [place] [address] Historical LMR Provider 01/19/17 Gabriele Cantu MD [address] [place] [address] [email or web address] Historical LMR Provider 01/19/17 04/12/21 Idania Chavira MD [address] [place] [address], [address] [place] [address] Historical LMR Provider 01/19/17 Kartik Valdez MD [address] [place] [address], [address] [place] [address] Historical LMR Provider 01/19/17 Kartik Valdez MD [address] [place] [address], [address] [place] [address] Insurance Assigned Provider 07/10/23 documented as of this encounter Additional Source Comments The information contained in this document represents components of the legal health record. It is not the complete legal health record.[facility]
--- OUTSIDE RECORDS SUMMARY | 2025-01-29 18:35 | XMS_ITS | Encounter Summary ---
Author Organization [facility] Address [address] [place] [address] Phone Care Team Providers Care Ammonia Worker Name Role Phone Merrill Lucero Meenu SALES DEPARTMENT MANAGER Unavailable Idania Chavira MD Unavailable Kartik Valdez MD Unavailable [phone] Kartik Valdez MD Primary Care Provider [phone] Kartik Valdez MD Unavailable [phone] Encounter Details Date Type Department Care Team (Late st Contact Info) Description 07/06/2024 Procedure [facility], [address] [address] Social History Tobacco Use Types Packs/Day Years [...] 01/31/2025 12:45 PM EDT Office Visit [facility] [address] [place] [address] Kartik Valdez MD [address] [facility], [address] [place] [address] 02/20/2025 9:40 AM EST Office Visit [facility] [address] [place] [address] Lennie Preciado CNP [address] [facility], 1st [place] [address] 02/20/2025 11:00 AM EST Office Visit [facility] [address] 3[address] Floor, [address] [place] [address] Rodolfo Hargrove MD [address] [place] [address], [address] [address] [email or web address] Divina Walls, TONY [address] [place] [address], [address] [place] [address] 04/09/2025 11:20 AM EST Office Visit [address] 3rd Floor, [address] [place] [address] Haris Lomax MD, MS [address] [place] [address], [address] [place] [address] 06/18/2025 9:45 AM EDT Office Visit [facility] [address] [place] [address] Kartik Valdez MD [address] [place] [address], [address] [place] [address] documented as of this encounter Visit Diagnoses Not on filedocumented in this encounter Additional Health Concerns Assessment Noted Time PHQ-2 Depression Total Score: 0 01/24/20 25 7:18 PM EDT documented as of this encounter Care Teams Ammonia Worker Relationship Specialty Start Date End Date Kartik Valdez MD [address] [place] [address], [address] [place] [address] PCP - General Internal Medicine 02/24/17 Merrill Lucero CNP [address] [place] [address], [address] [place] [address] Historical LMR Provider 01/19/17 Idania Chavira MD [address] [place] [address], [address] [place] [address] Historical LMR Provider 01/19/17 Kartik Valdez MD [address] [place] [address], [address] [place] [address] Historical LMR Provider 01/19/17 Kartik Valdez MD [address] [place] [address], [address] [place] [address] [email or web address] Insurance Assigned Provider 07/10/23 documented as of this encounter Additional Source Comments The information contained in this document represents components of the legal health record. It is not the complete legal health record.[facility]
--- OUTSIDE RECORDS SUMMARY | 2025-01-29 18:35 | XMS_ITS | Encounter Summary ---
Author Organization [facility] Address [address] [place] [address] [place] [address] Phone Care Team Providers Care Hat Sizer Name Role Phone Merrill Lucero [place] Unavailable Gabriele Cantu MD Unavailable + [phone] Idania Chavira MD Unavailable Kartik Valdez MD Unavailable [phone] Unknown, Unknown Primary Care Provider UnavaKartik Fleming MD Primary Care Provider [phone] Kartik Valdez MD Unavailable [phone] Encounter Details Date Type Department Care Team (Latest Contact Info) Description 01/29/2017 Ancillary Orders [address] [address] Kartik Valdez MD [address] [place] [address], [address] [place] [address] [email or web address] Visit for screening mammogram Social History Tobacco Use Types Packs/Day Years Used Date Smoking Tobacco: Never Assessed Comments Unknown Sex and Gender Information Value Date Recorded Sex Assigned at Not on file Legal Sex Female 9:53 PM EDT Gender Identity Not on file Sexual Orientation Not on file documented as of this encounter Plan of Treatment Upcoming Encounters Date Type Department Care Team (Late st Contact Info) Description 01/31/2025 12:45 PM EDT Office Visit [address] [place] [address] Kartik Valdez MD [address] [place] [address], [address] [place] [address] 02/20/2025 9:40 AM EST Office Visit [facility] [address] [place] [address] [place] [address] Lennie Preciado, [place] [address] [place] [address], 1st [place] [address] 02/20/2025 11:00 AM EST Office Visit [facility] [address] [place] [address] 3rd [facility], [address] [place] [address] Rodolfo Hargrove MD [address] [place] [address], [address] [place] [address] [email or web address] Divina Walls, TONY [address] [place] [address], [address] [place] [address] 04/09/2025 11:20 AM EST Office Visit [facility] [address] 3rd [facility], [address] [place] [address] Haris Lomax MD, [place] [address] [place] [address], [address] [place] [address] 06/18/2025 9:45 AM EDT Office Visit [address] [place] [address] Kartik Valdez MD [address] [place] [address], [address] [place] [address] documented as of this encounter Results * BI MAMMOGRAM SCREENING WITH TOMOSYNTHESIS WITH CAD (BILATERAL) (02/24/2017 11:55 AM EST) Anatomical Region Laterality Modality Breast Left, Breast Right, Breast Bilateral Bila teral Mammography 02/24/2017 4:39 PM EST Impressions 02/24/2017 4:42 PM EST No mammographic change indicative of malignancy. Routine screening is recommended. BI-RADS CATEGORY: 1 - Negative. DENSITY: There are scattered fibroglandular densities. POS - [id number] Narrative 02/24/2017 4:42 PM EST FINDINGS: Bilateral full-field digital screening mammography is obtained and read in conjunction with computer-aided detection. 3-D tomosynthesis as well as 2-D C view imaging is also performed. Comparison includes the most recent exam from 06/25/2015 and as far back as 06/20/2010. Breasts are composed of scattered fibroglandular tissue. No new dominant mass, suspicious microcalcifications, architectural distortion, focal skin thickening, or new asymmetry is detected. Procedure Note Moustapha Fernandez MD - 02/24/2017 FINDINGS: Bilateral full-field digital screening mammography is obtained and read inconjunction with computer-aided detection. 3-D tomosynthesis as well as2-D C view imaging is also performed. Comparison includes the most recentexam from 06/25/2015 and as far back as 06/20/2010. Breasts are composed of scattered fibroglandular tissue. No new dominantmass, suspicious microcalcifications, architectural distortion, focal skinthickening, or new asymmetry is detected. IMPRESSION: No mammographic change indicative of malignancy. Routine screening isrecommended. BI-RADS CATEGORY: 1 - Negative. DENSITY: There are scattered fibroglandular densities. POS - [id number] Kartik Valdez MD IMG MG EXAMS Final Result documented in this encounter Visit Diagnoses Diagnosis Visit for screening mammogram Visit for screening mammogram documented in this encounter Additional Health Concerns Infection Onset Date Last Indicated Resolved Time CoV-Risk 10/21/2020 10/22/2020 10/31/2020 1:44 AM EDT CoV-Risk 02/14/2021 02/14/2021 02/24/2021 1:22 AM EST documented as of this encounter Care Teams Hat Sizer Relationship Specialty Start Date End Date Unknown, Unknown, [facility], [address] [place] [address] PCP - General 01/29/17 02/23/17 Kartik Valdez MD [address] [place] [address], [address] [place] [address] PCP - General Internal Medicine 02/24/17 Merrill Lucero, [place] [address] [place] [address], [address] [place] [address] Historical LMR Provider 01/19/17 Gabriele Cantu MD [address] [place] [address] [email or web address] Historical LMR Provider 01/19/17 04/12/21 Idania Chavira MD [address] [place] [address], [address] [place] [address] Historical LMR Provider 01/19/17 Kartik Valdez MD [address] [place] [address], [address] [place] [address] Historical LMR Provider 01/19/17 Kartik Valdez MD [address] [place] [address], [address] [place] [address] Insurance Assigned Provider 07/10/23 documented as of this encounter Additional Source Comments The information contained in this document represents components of the legal health record. It is not the complete legal health record.[facility]
--- OUTSIDE RECORDS SUMMARY | 2025-01-29 18:35 | XMS_ITS | Encounter Summary ---
Author Organization [facility] Address [address] [place] [address] Phone Care Team Providers Care Recruiting Manager Name Role Phone Merrill Lucero Meenu HOOP PUNCH AND COILER OPERATOR Unavailable Idania Chavira MD Unavailable Kartik Valdez MD Unavailable [phone] Kartik Valdez MD Primary Care Provider Kartik Valdez MD Unavailable [phone] Encounter Details Date Type Department Care Team (Late st Contact Info) Description 05/13/2023 Procedure Pass [facility], [address] [address] Social History Tobacco Use Types Packs/Day Years [...] Description 01/31/2025 12:45 PM EDT Office Visit [facility] [address] [place] [address] [place] [address] Kartik Valdez MD [address] [place] [address], [address] [place] [address] 02/20/2025 9:40 AM EST Office Visit [facility] [address] [place] [address] [place] [address] Lennie Preciado CNP [address] [facility], 1st [place] [address] 02/20/2025 11:00 AM EST Office Visit [facility] [address] [place] [address] Dr 3rd Floor, [address] [place] [address] Rodolfo Hargrove MD [address] [place] [address], [address] [address] [email or web address] Divina Walls, TONY [address] [place] [address], [address] [place] [address] 04/09/2025 11:20 AM EST Office Visit [facility] [address] 3[address] Floor, [address] [place] [address] Haris Lomax MD, MS [address] [facility], [address] [address] 06/18/2025 9:45 AM EDT Office Visit [facility] [address] [address] Kartik Valdez MD [address] [place] [address], [address] [place] [address] documented as of this encounter Visit Diagnoses Not on filedocumented in this encounter Additional Health Concerns Assessment Noted Time PHQ-2 Depression Total Score: 0 07/16/19 23 5:07 PM EDT documented as of this encounter Care Teams Recruiting Manager Relationship Specialty Start Date End Date Kartik Valdez MD [address] [place] [address], [address] [place] [address] PCP - General Internal Medicine 02/24/17 Merrill Lucero, HOOP PUNCH AND COILER OPERATOR [address] [place] [address], [address] [place] [address] Historical LMR Provider 01/19/17 Idania Chavira MD [address] [place] [address], [address] [place] [address] Historical LMR Provider 01/19/17 Kartik Valdez MD [address] [place] [address], [address] [place] [address] Historical LMR Provider 01/19/17 Kartik Valdez MD [address] [place] [address], [address] [place] [address] Insurance Assigned Provider 07/10/23 documented as of this encounter Additional Source Comments The information contained in this document represents components of the legal health record. It is not the complete legal health record.[facility]
--- OUTSIDE RECORDS SUMMARY | 2025-01-29 18:36 | XMS_ITS | Encounter Summary ---
Author Organization [facility] Address [address] [facility] [address] [place] [address] Phone Care Team Providers Care Engine Lathe Set Up Operator Name Role Phone Merrill Lucero CORPORATE BANKING OFFICER Unavailable Idania Chavira MD Unavailable Kartik Valdez MD Unavailable [phone] Kartik Valdez MD Primary Care Provider Kartik Valdez MD Unavailable [phone] Reason for Visit * Reason Comments Medication Refill Encounter Details Date Type Department Care Team (Late st Contact Info) Description 09/11/2024 Refill [facility] [address] [place] [address] 3rd Floor, [address] [place] [address] Haris Lomax MD, MS [address] [facility], [address] [address] [email or web address] Medication Refill Social History Tobacco Use Types Packs/Day Years [...] as of this encounter Progress Notes * Kerrie Ruiz MA - 09/11/2024 10:19 AM EDT Rx reviewed documented in this encounter Plan of Treatment Upcoming Encounters Date Type Department Care Team (Late st Contact Info) Description 01/31/2025 12:45 PM EDT Office Visit [facility] [address] [place] [address] [place] [address] Kartik Valdez MD [address] [place] [address], [address] [place] [address] 02/20/2025 9:40 AM EST Office Visit [facility] [address] [place] [address] [place] [address] Lennie Preciado CNP [address] [place] [address], 1st [place] [address] 02/20/2025 11:00 AM EST Office Visit [facility] [address] [place] [address] Dr 3rd Floor, [address] [place] [address] Rodolfo Hargrove MD [address] [place] [address], [address] [address] [email or web address] Divina Walls DNP [address] [place] [address], [address] [address] 04/09/2025 11:20 AM EST Office Visit [facility] [address] 3[address] Floor, [address] [place] [address] Haris Lomax MD, MS [address] [place] [address], [address] [address] 06/18/2025 9:45 AM EDT Office Visit [facility] [address] [place] [address] Kartik Valdez MD [address] [facility], [address] [place] [address] [email or web address] documented as of this encounter Visit Diagnoses Diagnosis Moderate persistent asthma without complication documented in this encounter Additional Health Concerns Assessment Noted Time PHQ-2 Depression Total Score: 0 01/26/20 24 1:00 PM EDT documented as of this encounter Care Teams Engine Lathe Set Up Operator Relationship Specialty Start Date End Date Kartik Valdez MD [address] [place] [address], [address] [place] [address] PCP - General Internal Medicine 02/24/17 Merrill Lucero, [place] [address] [place] [address], [address] [address] Historical LMR Provider 01/19/17 Idania Chavira MD [address] [place] [address], [address] [address] Historical LMR Provider 01/19/17 Kartik Valdez MD [address] [place] [address], [address] [place] [address] Historical LMR Provider 01/19/17 Kartik Valdez MD [address] [place] [address], [address] [place] [address] Insurance Assigned Provider 07/10/23 documented as of this encounter Additional Source Comments The information contained in this document represents components of the legal health record. It is not the complete legal health record.[facility]
== END 2025-01-29 15:53 | disposition home or self-care (01) ==
PROVIDERS: Emergency Provider Emergency Medicine; PCP Internal Medicine
DX: I47.10 Supraventricular tachycardia, unspecified (principal); I49.9 Cardiac arrhythmia, unspecified; R00.2 Palpitations; Z79.899 Other long term (current) drug therapy
CPT/HCPCS: 36415; 80053; 84484; 85025; 93005; 96374; 99284; 99285

== ENCOUNTER → 2025-01-29 14:22 | Outpatient (BNV) | payer MEDICARE, OTHER, SELFPAY | PROVIDERS: Emergency Provider Emergency Medicine; PCP Internal Medicine; Visit Provider Internal Medicine | DX: R94.31 Abnormal electrocardiogram [ECG] [EKG] (principal); R00.0 Tachycardia, unspecified | CPT/HCPCS: 93010 ==